=== PATIENT | male | born 1965 | race African-American/Black ===

== ENCOUNTER 2022-02-06 00:35 | Inpatient (IN) | payer MEDICAID ==
[~2022-02-06] VITALS: Ht 165.1 cm; Wt 80.7 kg
[2022-02-06 00:54] VITALS: BP_SYST 181
[2022-02-06] MEDS ORDERED: MORPHINE 2 MG/ML INJ. SYRINGE IVP ONE (01:00)
[2022-02-06] MEDS ORDERED: NACL 0.9% 1,000 ML IV ONE (01:00)
[2022-02-06] MEDS ORDERED: ONDANSETRON HCL 4 MG/2 ML VIAL IVP ONE (01:00)
[2022-02-06 01:27] LABS: HEMOGLOBIN 10.8 g/dL (14.0-18.0); PLATELET COUNT (AUTO) 184 K/uL (130-430); WHITE BLOOD COUNT (AUTO) 5.1 K/uL (4.8-10.8)
[2022-02-06 01:33] LABS: BASOPHILS % (AUTO) 0.6 % (0.0-2.0); EOSINOPHILS # (AUTO) 0.3 K/uL (0.0-0.4); EOSINOPHILS % (AUTO) 5.2 % (0.0-4.0); HEMATOCRIT 32.9 % (36-54); LYMPHOCYTES # (AUTO) 0.8 K/uL (1.0-5.5); LYMPHOCYTES % (AUTO) 15.7 % (20.5-51.5); MEAN CORPUSCULAR HEMOGLOBIN 30 pg (27-31); MEAN CORPUSCULAR HGB CONC 33 % (32-36); MEAN CORPUSCULAR VOLUME 91 fL (79.0-98.0); MONOCYTES # (AUTO) 0.4 K/uL (0.0-1.0); MONOCYTES % (AUTO) 8.3 % (1.7-9.3); NEUTROPHILS # (AUTO) 3.6 K/uL (1.8-7.7); NEUTROPHILS % (AUTO) 70.2 % (40.0-70.0); RED CELL DISTRIBUTION WIDTH 20.9 % (9.0-15.0)
[2022-02-06 01:34] LABS: CALCIUM 8.6 mg/dL (8.4-11.0); POTASSIUM 4.6 mmol/L (3.5-5.1)
[2022-02-06 01:39] LABS: CREATININE 10.78 mg/dL (0.55-1.30)
[2022-02-06 01:44] LABS: ALBUMIN 2.7 g/dL (3.4-4.8); TOTAL BILIRUBIN 0.6 mg/dL (0.0-1.0)
[2022-02-06] MEDS ORDERED: hydrALAZINE HCL 20 MG/ML VIAL IVP ONE (02:00)
[2022-02-06] MEDS ORDERED: DIPHENHYDRAMINE INJ 50 MG/ML VIAL IVP ONE (02:00)
--- NOTE | 2022-02-06 02:13 | NUR ---
Placed in room 7 . Placed on block mechanic, blood pressure machine and pulse oximeter. To gown for exam. Side rails up. Pt a&o x4, verbal, ambulatory, no sob/ distress, with c/o RUQ pain with nausea & dizzy. got d/c from hospital on ,
[2022-02-06] MEDS ORDERED: LORazepam 2 MG/ML VIAL IVP ONE (02:30)
--- NOTE | 2022-02-06 02:50 | NUR ---
NEW ADMISSION , 57YEARS OLD MALE , FROM HOME WITH COMPLAIN OF ABDOMINAL PAIN ,NUSEA AND VOMITING.HEALTH HISTORY OF HTN, ENSRD, ON DIALYSIS. AVF TO [facility] POSIT[facility] FOR [facility] AND THRILL MEDICATED FOR PAIN AND N&V ,HTN AND ANXIETY.PATIENT WAS SEEN AND EVALUATED BY DR MONTEIRO ADMITTING V/S ARE BP.184/93 , HR96, RR 24, O2SAT 100 ON RA TEMP 98.1 PATIENT IS HIGH RISK FOR FALL, WILL CONTINUE TO MONITOR MRSA AND RAPID SWAP DONE ORDERED.
[2022-02-06] MEDS ORDERED: cloNIDine HCL 0.1 MG TABLET PO ONE (03:30)
[2022-02-06 03:48] LABS: BILIRUBIN,URINE NEGATIVE (NEGATIVE); BLOOD, URINE 1+ (NEGATIVE); CLARITY/URINE CLEAR (CLEAR); COLOR,URINE YELLOW (YELLOW); GLUCOSE,URINE 1+ (NEGATIVE); KETONES,URINE NEGATIVE (NEGATIVE); LEUKOCYTE ESTERASE ,URINE NEGATIVE (NEGATIVE); NITRITE, URINE NEGATIVE (NEGATIVE); PROTEIN URINE 3+ (NEGATIVE); UROBILINOGEN,URINE 0.2 (0.2-1.0)
[2022-02-06] MEDS ORDERED: cloNIDine HCL 0.1 MG TABLET ONE ×2 (03:56→04:18)
[2022-02-06 04:20] LABS: BACTERIA,URINE None Seen /HPF (None Seen); MUCUS,URINE 1+ /LPF (None Seen); WBC,URINE 0-3 /HPF (0-3)
--- NOTE | 2022-02-06 05:04 | NUR ---
Consultation Paged Reason for Consultation: Renal Failure Was consult called: Y Person who was notified: Dr. Jordan (parts sales counterperson for Dr. Alfaro) is notified as per WILLIAN Valle Consulting Physician: Dr. Alfaro Ordering Physician: Keron Merino
[2022-02-06 05:10] VITALS: BP_SYST 136
--- NOTE | 2022-02-06 06:07 | NUR ---
patient arrived to the unit approx 0455 from [facility] GRIZZLY WORKER. patient is AAOXO. rambling words. unable to independently ambulate to bed. patient not able to follow commands and attempts to get out of bed. unable to complete admission questions due to patient not being alert. ER MD ordered stat HD per GRIZZLY WORKER. will endorse to on coming nurse. call light within reach. bed set to low, alarm on, and locked.
--- NOTE | 2022-02-06 07:25 | NUR ---
OPENING NOTE RECEIVED SBAR FROM MGMT CONSULTANT NURSE PT IN BED. BED IS LOW AND LOCKED.
[2022-02-06] MEDS ORDERED: NALOXONE HCL 0.4 MG/ML AMP (NARCAN) IVP PRN ×2 (07:30)
[2022-02-06] MEDS ORDERED: LORazepam 2 MG/ML VIAL IVP PRN ×2 (07:30→09:45)
[2022-02-06] MEDS ORDERED: ONDANSETRON HCL 4 MG/2 ML VIAL IVP PRN (07:30)
[2022-02-06] MEDS ORDERED: ACETAMINOPHEN 325 MG TABLET PO PRN (07:30)
[2022-02-06] MEDS ORDERED: HYDROcodone/ACETAMIN 10-325 MG TAB PO PRN (07:30)
[2022-02-06] MEDS ORDERED: HYDROcodone/ACETAMIN 5-325 MG TAB (NORCO/ VICODIN) PO PRN (07:30)
[2022-02-06 08:00] VITALS: BP_SYST 166
--- NOTE | 2022-02-06 08:00 | NUR ---
restraints patient is about to have dialysis. biomedical equipment technician requesting restraints as patient is a &O x1 and will not hold arms still for treatment. Dr Hooks is on the floor and ordered bilateral soft wrist restraints to be used during dialysis
--- NOTE | 2022-02-06 08:52 | NUR ---
CONSULTATION PAGED/CALLED Reason for Consultation: [] HYPERTENSION Person Who was Notified: [] DR Christina STEELE Consulting Physician: [] DR Christina STEELE Industry Analyst Specialty: [] SURGEON Ordering Physician: [] DR Gordon STEELE
[2022-02-06 12:00] VITALS: BP_SYST 160
--- NOTE | 2022-02-06 13:00 | NUR ---
DC RESTRAINTS Dialysis competed. pt not combative. restraints removed. no signs of skin breakdown. capillary refill less than 3seconds.
--- NOTE | 2022-02-06 14:00 | NUR ---
FAMILY AT BEDSIDE NIECE AT BEDSIDE ASSISTED WITH ADMISSION PROCESS. ALL QUESTIONS WERE ANSWERED. NIECE VERBALIZED UNDERSTANDING.
[2022-02-06] MEDS ORDERED: ISO10 PO (15:31)
[2022-02-06] MEDS ORDERED: PRO40 PO (15:31)
[2022-02-06] MEDS ORDERED: NEU300 PO (15:34)
[2022-02-06] MEDS ORDERED: CLOP75TA32 PO (15:34)
[2022-02-06] MEDS ORDERED: CARV6.2554 PO (15:34)
[2022-02-06 16:00] VITALS: BP_SYST 172
--- NOTE | 2022-02-06 19:13 | NUR ---
CLOSING NOTE PROVIDED SBAR TO SANDING SUPERVISOR NURSE PT IN BED. BED IS LOW AND LOCKED. PT DENIES ANY PAIN/DISCOMFORT. ENDORSED CARE TO NIGHT RN.
[2022-02-06 20:00] VITALS: BP_SYST 157
[2022-02-06] MEDS ORDERED: CARVEDILOL 12.5 MG TABLET (COREG) PO SCH (21:00)
[2022-02-06] MEDS ORDERED: ATORVASTATIN 20 MG TABLET PO SCH (21:00)
[2022-02-06] MEDS ORDERED: SACUBITRIL/VALSARTAN 24 MG-26 MG 1 TABLET PO SCH (21:00)
[2022-02-06] MEDS: INSULIN REGULAR, HUMAN 100 UNITS/ML, 10 ML VIAL (humuLIN R) SUBCUT PRN (22:11)
[2022-02-07] VITALS: BP_SYST 127
[2022-02-07] MEDS: INSULIN REGULAR, HUMAN 100 UNITS/ML, 10 ML VIAL (humuLIN R) SUBCUT PRN (06:47)
[2022-02-07 08:00] VITALS: BP_SYST 140
[2022-02-07 08:10] LABS: BASOPHILS % (AUTO) 0.9 % (0.0-2.0); EOSINOPHILS # (AUTO) 0.4 K/uL (0.0-0.4); EOSINOPHILS % (AUTO) 7.1 % (0.0-4.0); HEMATOCRIT 30.8 % (36-54); HEMOGLOBIN 10.2 g/dL (14.0-18.0); LYMPHOCYTES # (AUTO) 0.9 K/uL (1.0-5.5); LYMPHOCYTES % (AUTO) 15.8 % (20.5-51.5); MEAN CORPUSCULAR HEMOGLOBIN 29 pg (27-31); MEAN CORPUSCULAR HGB CONC 33 % (32-36); MEAN CORPUSCULAR VOLUME 89 fL (79.0-98.0); MONOCYTES # (AUTO) 0.5 K/uL (0.0-1.0); MONOCYTES % (AUTO) 8.5 % (1.7-9.3); NEUTROPHILS # (AUTO) 3.7 K/uL (1.8-7.7); NEUTROPHILS % (AUTO) 67.7 % (40.0-70.0); PLATELET COUNT (AUTO) 147 K/uL (130-430); RED BLOOD CELL COUNT(AUTO) 3.47 MIL/uL (4.2-6.2); RED CELL DISTRIBUTION WIDTH 20.7 % (9.0-15.0); WHITE BLOOD COUNT (AUTO) 5.4 K/uL (4.8-10.8)
[2022-02-07 09:33] LABS: ALBUMIN 2.4 g/dL (3.4-4.8); CALCIUM 8.1 mg/dL (8.4-11.0); PHOSPHORUS 3.7 mg/dL (2.7-4.5); POTASSIUM 4.4 mmol/L (3.5-5.1); TOTAL BILIRUBIN 0.6 mg/dL (0.0-1.0)
--- NOTE | 2022-02-07 09:40 | NUR ---
Mr Thorpe has left the hospital AMA. IV access was removed and arm band was removed. He was pleasant and cooperative as he departed. He was escorted as he walked with an usteady gait to the front lobby. At the time of departure he had no s/s of distress and was leaing at his own choice. made aware. No family listed in the chart to notify
[2022-02-07 09:50] LABS: CREATININE 8.1 mg/dL (0.55-1.30)
--- NOTE | 2022-02-08 08:16 | NUR ---
Dispo code 07
== END 2022-02-07 09:40 | disposition left against medical advice (07) | DRG 470 ==
LOC: SED 00:35 → STU 02:37
PROVIDERS: ADMIT Preventive Medicine Preventive Medicine/Occupational Environmental Medicine; ATTEND Preventive Medicine Preventive Medicine/Occupational Environmental Medicine
PROC: 5A1D70Z Performance of Urinary Filtration, Intermittent, Less than 6 Hours Per Day (ICD-10-PCS; principal; 2022-02-06)
DX: I12.0 Hypertensive chronic kidney disease with stage 5 chronic kidney disease or end stage renal disease (principal); G93.40 Encephalopathy, unspecified; I50.23 Acute on chronic systolic (congestive) heart failure; I42.0 Dilated cardiomyopathy; E87.1 Hypo-osmolality and hyponatremia; E88.09 Other disorders of plasma-protein metabolism, not elsewhere classified; J91.8 Pleural effusion in other conditions classified elsewhere; N18.6 End stage renal disease; D64.9 Anemia, unspecified; Z20.822 Contact with and (suspected) exposure to COVID-19; E11.22 Type 2 diabetes mellitus with diabetic chronic kidney disease; I50.9 Heart failure, unspecified; Z91.15 Patient's noncompliance with renal dialysis; Z99.2 Dependence on renal dialysis; Z79.899 Other long term (current) drug therapy
CPT/HCPCS: 36415; 76376; 76770; 80053; 81000; 83690; 83735; 84100; 85025; 87081; 90935; 93306; 96374; 96375; 97161-GP; 99285; G0378; J0360; J1200; J2060; J2270; J2405

== ENCOUNTER 2022-02-11 03:32 | Inpatient (IN) | payer MEDICAID ==
[~2022-02-11] VITALS: Ht 165.1 cm; Wt 81.2 kg
[~2022-02-11 03:32] MED LIST: CARV6.2554 PO; CLOP75TA32 PO; ISO10 PO; NEU300 PO; PRO40 PO
[2022-02-11 05:15] VITALS: BP_SYST 145
[2022-02-11] MEDS ORDERED: HYDROcodone/ACETAMIN 10-325 MG TAB PO ONE (08:30)
[2022-02-11 09:20] LABS: BASOPHILS # (AUTO) 0.1 K/uL (0.0-0.2); BASOPHILS % (AUTO) 0.8 % (0.0-2.0); EOSINOPHILS # (AUTO) 0.3 K/uL (0.0-0.4); EOSINOPHILS % (AUTO) 4.5 % (0.0-4.0); HEMATOCRIT 32.8 % (36-54); HEMOGLOBIN 10.5 g/dL (14.0-18.0); LYMPHOCYTES # (AUTO) 1.3 K/uL (1.0-5.5); LYMPHOCYTES % (AUTO) 18.5 % (20.5-51.5); MEAN CORPUSCULAR HEMOGLOBIN 29 pg (27-31); MEAN CORPUSCULAR HGB CONC 32 % (32-36); MEAN CORPUSCULAR VOLUME 90 fL (79.0-98.0); MONOCYTES # (AUTO) 0.8 K/uL (0.0-1.0); MONOCYTES % (AUTO) 11.2 % (1.7-9.3); NEUTROPHILS # (AUTO) 4.5 K/uL (1.8-7.7); PLATELET COUNT (AUTO) 145 K/uL (130-430); RED BLOOD CELL COUNT(AUTO) 3.65 MIL/uL (4.2-6.2); RED CELL DISTRIBUTION WIDTH 19.7 % (9.0-15.0); WHITE BLOOD COUNT (AUTO) 6.9 K/uL (4.8-10.8)
[2022-02-11 09:30] LABS: ANION GAP 11 (5-15); CHLORIDE 102 mmol/L (98-107); GLUCOSE 155 mg/dL (70-99); POTASSIUM 4.6 mmol/L (3.5-5.1); SODIUM SERUM 138 mmol/L (136-145); UREA NITROGEN, BLOOD 68 mg/dL (8-21)
[2022-02-11 09:37] LABS: CREATININE 7.75 mg/dL (0.55-1.30); GFR AFRICAN AMERICAN 9 mL/min (>90)
[2022-02-11 09:38] LABS: ALANINE AMINOTRANSFERASE 12 U/L (12-78); ALBUMIN 2.5 g/dL (3.4-4.8); ASPARTATE AMINOTRANSFERASE 22 U/L (10-37); TOTAL BILIRUBIN 0.5 mg/dL (0.0-1.0)
[2022-02-11] MEDS ORDERED: D5/0.45 NS 1,000 ML IV SCH (14:30)
[2022-02-11] MEDS ORDERED: CLOP75TA32 PO (15:16)
[2022-02-11] MEDS ORDERED: FER300L PO (15:19)
[2022-02-11 16:55] VITALS: BP_SYST 142
[2022-02-11] MEDS ORDERED: ACETAMINOPHEN 325 MG TABLET PO PRN ×2 (17:45→19:00)
[2022-02-11] MEDS ORDERED: NALOXONE HCL 0.4 MG/ML AMP (NARCAN) IVP PRN ×2 (19:00)
[2022-02-11] MEDS ORDERED: HYDROcodone/ACETAMIN 5-325 MG TAB (NORCO/ VICODIN) PO PRN (19:00)
[2022-02-11] MEDS ORDERED: LORazepam 2 MG/ML VIAL IVP PRN (19:00)
[2022-02-11] MEDS ORDERED: ONDANSETRON HCL 4 MG/2 ML VIAL IVP PRN (19:00)
[2022-02-11 20:00] VITALS: BP_SYST 159
[2022-02-11] MEDS: ISOSORBIDE DINITRATE 10 MG TABLET (ISORDIL) PO SCH (20:27)
[2022-02-11] MEDS: NORMAL SALINE 5 ML DISP.SYRIN IVF SCH (20:27)
[2022-02-11] MEDS: DIPHENHYDRAMINE HCL 25 MG CAPSULE PO PRN (20:28)
[2022-02-11] MEDS: CARVEDILOL 6.25 MG TABLET (COREG) PO SCH (20:41)
[2022-02-11] MEDS ORDERED: PANTOPRAZOLE SODIUM 40 MG/VIAL (PROTONIX) IVP SCH (21:00)
[2022-02-11] MEDS ORDERED: NORMAL SALINE 5 ML DISP.SYRIN IVF SCH (22:00)
[2022-02-12] VITALS: BP_SYST 146
[2022-02-12] MEDS: DIPHENHYDRAMINE HCL 25 MG CAPSULE PO PRN (04:28)
[2022-02-12] MEDS: NORMAL SALINE 5 ML DISP.SYRIN IVF SCH ×3 (04:36→21:26)
[2022-02-12 08:00] VITALS: BP_SYST 145
[2022-02-12] MEDS: CARVEDILOL 6.25 MG TABLET (COREG) PO SCH ×2 (09:04→21:25)
[2022-02-12] MEDS: PANTOPRAZOLE SODIUM 40 MG TAB PO SCH (09:05)
[2022-02-12] MEDS: ISOSORBIDE DINITRATE 10 MG TABLET (ISORDIL) PO SCH ×3 (09:05→21:12)
[2022-02-12] MEDS: CLOPIDOGREL BISULFATE 75 MG TABLET PO SCH (09:05)
[2022-02-12] MEDS: FERROUS SULFATE 300 MG/5 ML UDC PO SCH (09:06)
[2022-02-12 10:24] LABS: CALCIUM 8.1 mg/dL (8.4-11.0); CREATININE 5.75 mg/dL (0.55-1.30); PHOSPHORUS 3.5 mg/dL (2.7-4.5)
[2022-02-12] MEDS: INSULIN REGULAR, HUMAN 100 UNITS/ML, 10 ML VIAL (humuLIN R) SUBCUT PRN (11:35)
[2022-02-12 12:00] VITALS: BP_SYST 149
[2022-02-12 14:34] LABS: BASOPHILS # (AUTO) 0.1 K/uL (0.0-0.2); BASOPHILS % (AUTO) 1.3 % (0.0-2.0); EOSINOPHILS # (AUTO) 0.3 K/uL (0.0-0.4); EOSINOPHILS % (AUTO) 5.5 % (0.0-4.0); HEMATOCRIT 31.5 % (36-54); HEMOGLOBIN 10.2 g/dL (14.0-18.0); LYMPHOCYTES # (AUTO) 1.3 K/uL (1.0-5.5); LYMPHOCYTES % (AUTO) 22.1 % (20.5-51.5); MEAN CORPUSCULAR HEMOGLOBIN 29 pg (27-31); MEAN CORPUSCULAR HGB CONC 32 % (32-36); MEAN CORPUSCULAR VOLUME 89 fL (79.0-98.0); MONOCYTES # (AUTO) 0.4 K/uL (0.0-1.0); MONOCYTES % (AUTO) 6.4 % (1.7-9.3); NEUTROPHILS # (AUTO) 3.7 K/uL (1.8-7.7); NEUTROPHILS % (AUTO) 64.7 % (40.0-70.0); PLATELET COUNT (AUTO) 164 K/uL (130-430); RED BLOOD CELL COUNT(AUTO) 3.53 MIL/uL (4.2-6.2); RED CELL DISTRIBUTION WIDTH 20.2 % (9.0-15.0); WHITE BLOOD COUNT (AUTO) 5.7 K/uL (4.8-10.8)
[2022-02-12 15:46] LABS: THYROID STIMULATING HORMONE 3.28 uIu/mL (0.36-3.74)
[2022-02-12 16:00] VITALS: BP_SYST 160
[2022-02-12] MEDS: HYDROcodone/ACETAMIN 10-325 MG TAB PO PRN ×2 (16:55→21:13)
[2022-02-12 20:32] VITALS: BP_SYST 136
[2022-02-13 00:12] VITALS: BP_SYST 160
[2022-02-13] MEDS: NORMAL SALINE 5 ML DISP.SYRIN IVF SCH ×3 (07:05→22:10)
[2022-02-13] MEDS: INSULIN REGULAR, HUMAN 100 UNITS/ML, 10 ML VIAL (humuLIN R) SUBCUT PRN ×2 (07:11→11:45)
[2022-02-13 08:00] VITALS: BP_SYST 161
[2022-02-13] MEDS: CARVEDILOL 6.25 MG TABLET (COREG) PO SCH ×2 (08:25→20:41)
[2022-02-13] MEDS: FERROUS SULFATE 300 MG/5 ML UDC PO SCH (08:25)
[2022-02-13] MEDS: PANTOPRAZOLE SODIUM 40 MG TAB PO SCH (08:26)
[2022-02-13] MEDS: CLOPIDOGREL BISULFATE 75 MG TABLET PO SCH (08:26)
[2022-02-13] MEDS: HYDROcodone/ACETAMIN 10-325 MG TAB PO PRN ×3 (08:26→20:40)
[2022-02-13] MEDS: ISOSORBIDE DINITRATE 10 MG TABLET (ISORDIL) PO SCH ×3 (08:26→20:42)
[2022-02-13 09:32] LABS: CALCIUM 8.1 mg/dL (8.4-11.0); CREATININE 7.14 mg/dL (0.55-1.30); PHOSPHORUS 4.5 mg/dL (2.7-4.5); POTASSIUM 4.5 mmol/L (3.5-5.1)
[2022-02-13] MEDS: DIPHENHYDRAMINE HCL 25 MG CAPSULE PO PRN ×2 (10:38→17:01)
[2022-02-13 12:00] VITALS: BP_SYST 155
[2022-02-13 12:29] LABS: BASOPHILS # (AUTO) 0.1 K/uL (0.0-0.2); BASOPHILS % (AUTO) 1.4 % (0.0-2.0); EOSINOPHILS # (AUTO) 0.2 K/uL (0.0-0.4); EOSINOPHILS % (AUTO) 3.8 % (0.0-4.0); HEMATOCRIT 31.1 % (36-54); HEMOGLOBIN 10.1 g/dL (14.0-18.0); LYMPHOCYTES # (AUTO) 1.1 K/uL (1.0-5.5); LYMPHOCYTES % (AUTO) 18.4 % (20.5-51.5); MEAN CORPUSCULAR HEMOGLOBIN 29 pg (27-31); MEAN CORPUSCULAR HGB CONC 32 % (32-36); MEAN CORPUSCULAR VOLUME 89 fL (79.0-98.0); MONOCYTES # (AUTO) 0.5 K/uL (0.0-1.0); MONOCYTES % (AUTO) 7.7 % (1.7-9.3); NEUTROPHILS # (AUTO) 4.1 K/uL (1.8-7.7); NEUTROPHILS % (AUTO) 68.7 % (40.0-70.0); PLATELET COUNT (AUTO) 163 K/uL (130-430); RED BLOOD CELL COUNT(AUTO) 3.48 MIL/uL (4.2-6.2); RED CELL DISTRIBUTION WIDTH 20.4 % (9.0-15.0); WHITE BLOOD COUNT (AUTO) 5.9 K/uL (4.8-10.8)
[2022-02-13 16:00] VITALS: BP_SYST 145
[2022-02-13 20:00] VITALS: BP_SYST 157
[2022-02-14 01:00] VITALS: BP_SYST 129
[2022-02-14] MEDS: NORMAL SALINE 5 ML DISP.SYRIN IVF SCH (05:24)
[2022-02-14 07:48] LABS: EOSINOPHILS # (AUTO) 0.3 K/uL (0.0-0.4); EOSINOPHILS % (AUTO) 4.4 % (0.0-4.0); HEMATOCRIT 29.4 % (36-54); HEMOGLOBIN 9.7 g/dL (14.0-18.0); LYMPHOCYTES # (AUTO) 1.4 K/uL (1.0-5.5); LYMPHOCYTES % (AUTO) 20.8 % (20.5-51.5); MEAN CORPUSCULAR HEMOGLOBIN 29 pg (27-31); MEAN CORPUSCULAR HGB CONC 33 % (32-36); MEAN CORPUSCULAR VOLUME 89 fL (79.0-98.0); MONOCYTES # (AUTO) 0.5 K/uL (0.0-1.0); MONOCYTES % (AUTO) 7.4 % (1.7-9.3); PLATELET COUNT (AUTO) 169 K/uL (130-430); RED CELL DISTRIBUTION WIDTH 19.9 % (9.0-15.0); WHITE BLOOD COUNT (AUTO) 6.7 K/uL (4.8-10.8)
[2022-02-14 08:05] VITALS: BP_SYST 157
[2022-02-14] MEDS: FERROUS SULFATE 300 MG/5 ML UDC PO SCH (08:06)
[2022-02-14] MEDS: ISOSORBIDE DINITRATE 10 MG TABLET (ISORDIL) PO SCH (08:07)
[2022-02-14] MEDS: HYDROcodone/ACETAMIN 10-325 MG TAB PO PRN (08:07)
[2022-02-14] MEDS: CLOPIDOGREL BISULFATE 75 MG TABLET PO SCH (08:08)
[2022-02-14] MEDS: PANTOPRAZOLE SODIUM 40 MG TAB PO SCH (08:12)
[2022-02-14] MEDS: CARVEDILOL 6.25 MG TABLET (COREG) PO SCH (08:12)
[2022-02-14 08:35] LABS: ALBUMIN 2.6 g/dL (3.4-4.8); CALCIUM 8.6 mg/dL (8.4-11.0); CREATININE 5.46 mg/dL (0.55-1.30); PHOSPHORUS 3.7 mg/dL (2.7-4.5); POTASSIUM 4.5 mmol/L (3.5-5.1); TOTAL BILIRUBIN 0.8 mg/dL (0.0-1.0)
[2022-02-14] MEDS ORDERED: GABAPENTIN 100 MG CAPSULE PO SCH (09:00)
[2022-02-14 09:12] LABS: BASOPHILS % (AUTO) 0.2 % (0.0-2.0); NEUTROPHILS # (AUTO) 4.5 K/uL (1.8-7.7); NEUTROPHILS % (AUTO) 67.2 % (40.0-70.0)
[2022-02-14] MEDS ORDERED: LORazepam 1 MG TABLET PO PRN (09:15)
[2022-02-14] MEDS: INSULIN REGULAR, HUMAN 100 UNITS/ML, 10 ML VIAL (humuLIN R) SUBCUT PRN (11:27)
[2022-02-14] MEDS ORDERED: HYDR-3917 PO (12:20)
== END 2022-02-14 23:19 | disposition home or self-care (01) | DRG 470 ==
LOC: SED 03:32 → SMU 13:09 → STU 15:28 → SMU 02-13 23:09
PROVIDERS: ADMIT Preventive Medicine Preventive Medicine/Occupational Environmental Medicine; ATTEND Preventive Medicine Preventive Medicine/Occupational Environmental Medicine
PROC: 5A1D70Z Performance of Urinary Filtration, Intermittent, Less than 6 Hours Per Day (ICD-10-PCS; principal; 2022-02-11)
PROC: 5A1D70Z Performance of Urinary Filtration, Intermittent, Less than 6 Hours Per Day (ICD-10-PCS; 2022-02-13)
DX: I12.0 Hypertensive chronic kidney disease with stage 5 chronic kidney disease or end stage renal disease (principal); I21.A1 Myocardial infarction type 2; E43 Unspecified severe protein-calorie malnutrition; N18.6 End stage renal disease; D63.1 Anemia in chronic kidney disease; E88.09 Other disorders of plasma-protein metabolism, not elsewhere classified; E11.21 Type 2 diabetes mellitus with diabetic nephropathy; E11.22 Type 2 diabetes mellitus with diabetic chronic kidney disease; Z20.822 Contact with and (suspected) exposure to COVID-19; K21.9 Gastro-esophageal reflux disease without esophagitis; E11.65 Type 2 diabetes mellitus with hyperglycemia; E83.52 Hypercalcemia; Z99.2 Dependence on renal dialysis; Z72.0 Tobacco use; Z79.01 Long term (current) use of anticoagulants; Z68.29 Body mass index [BMI] 29.0-29.9, adult; N28.9 Disorder of kidney and ureter, unspecified
CPT/HCPCS: 36415; 71045; 76770; 80048; 80053; 80061; 82962; 83735; 83880; 84100; 84443; 84484; 85025; 90935; 90937; 93005; 99285; G0378; J1815; J2060; Q0163

== ENCOUNTER 2022-02-21 00:50 | Inpatient (IN) | payer MEDICAID ==
[2022-02-21] VITALS (8 sets, daily range): BP systolic 132–185
[~2022-02-21] VITALS: Ht 180.3 cm; Wt 72.6 kg
[~2022-02-21 00:50] MED LIST changes: +FER300L PO; +HYDR-3917 PO
[2022-02-21] MEDS ORDERED: MORPHINE 4 MG INJ. 4 MG/ML VIAL IVP ONE (01:15)
[2022-02-21] MEDS ORDERED: PROCHLORPERAZINE EDISYLATE 10 MG/2 ML VIAL IVP ONE (01:15)
[2022-02-21] MEDS ORDERED: NITROGLYCERIN 1 INCH (GM) OINT. TP ONE (01:30)
[2022-02-21 02:22] LABS: ANION GAP 8 (5-15); CHLORIDE 97 mmol/L (98-107); GLUCOSE 169 mg/dL (70-99); POTASSIUM 4.6 mmol/L (3.5-5.1); SODIUM SERUM 138 mmol/L (136-145); UREA NITROGEN, BLOOD 45 mg/dL (8-21)
[2022-02-21 02:26] LABS: BASOPHILS # (AUTO) 0.1 K/uL (0.0-0.2); BASOPHILS % (AUTO) 1.5 % (0.0-2.0); EOSINOPHILS # (AUTO) 0.1 K/uL (0.0-0.4); EOSINOPHILS % (AUTO) 2.1 % (0.0-4.0); HEMATOCRIT 31.7 % (36-54); HEMOGLOBIN 10.5 g/dL (14.0-18.0); LYMPHOCYTES # (AUTO) 1.4 K/uL (1.0-5.5); LYMPHOCYTES % (AUTO) 20.1 % (20.5-51.5); MEAN CORPUSCULAR HEMOGLOBIN 30 pg (27-31); MEAN CORPUSCULAR HGB CONC 33 % (32-36); MEAN CORPUSCULAR VOLUME 89 fL (79.0-98.0); MONOCYTES # (AUTO) 0.3 K/uL (0.0-1.0); NEUTROPHILS # (AUTO) 4.9 K/uL (1.8-7.7); NEUTROPHILS % (AUTO) 71.3 % (40.0-70.0); PLATELET COUNT (AUTO) 180 K/uL (130-430); RED BLOOD CELL COUNT(AUTO) 3.57 MIL/uL (4.2-6.2); RED CELL DISTRIBUTION WIDTH 21.5 % (9.0-15.0); WHITE BLOOD COUNT (AUTO) 6.9 K/uL (4.8-10.8)
[2022-02-21 02:31] LABS: ALANINE AMINOTRANSFERASE 10 U/L (12-78); ALBUMIN 2.6 g/dL (3.4-4.8); ASPARTATE AMINOTRANSFERASE 13 U/L (10-37)
[2022-02-21 02:40] LABS: CALCIUM 8.3 mg/dL (8.4-11.0); CREATININE 7.46 mg/dL (0.55-1.30)
[2022-02-21 03:00] LABS: GFR AFRICAN AMERICAN 10 mL/min (>90)
[2022-02-21] MEDS ORDERED: hydrALAZINE HCL 20 MG/ML VIAL IVP ONE (03:00)
[2022-02-21] MEDS ORDERED: cloNIDine HCL 0.1 MG TABLET PO PRN (04:00)
[2022-02-21] MEDS ORDERED: NALOXONE HCL 0.4 MG/ML AMP (NARCAN) IVP PRN (09:30)
[2022-02-21] MEDS ORDERED: CLOPIDOGREL BISULFATE 75 MG TABLET PO ONE (09:45)
[2022-02-21] MEDS ORDERED: FERROUS SULFATE 325 MG TABLET.DR PO ONE (09:45)
[2022-02-21] MEDS ORDERED: CARVEDILOL 6.25 MG TABLET (COREG) PO ONE (09:45)
[2022-02-21] MEDS ORDERED: PANTOPRAZOLE SODIUM 40 MG TAB PO ONE (09:45)
[2022-02-21] MEDS ORDERED: ISOSORBIDE DINITRATE 10 MG TABLET (ISORDIL) PO ONE (09:45)
[2022-02-21] MEDS ORDERED: NEPHROVITE, (FOLIC ACID/VITAMIN B COMP W-C 1 TAB) PO ONE (09:45)
[2022-02-21] MEDS: ISOSORBIDE DINITRATE 10 MG TABLET (ISORDIL) PO SCH ×2 (15:00→20:25)
[2022-02-21] MEDS ORDERED: GABAPENTIN 300 MG CAPSULE PO SCH (15:00)
[2022-02-21] MEDS: CARVEDILOL 6.25 MG TABLET (COREG) PO SCH (20:25)
[2022-02-22 06:53] LABS: CALCIUM 8.2 mg/dL (8.4-11.0); CREATININE 6.57 mg/dL (0.55-1.30); POTASSIUM 3.9 mmol/L (3.5-5.1)
[2022-02-22 06:59] LABS: BASOPHILS # (AUTO) 0.1 K/uL (0.0-0.2); BASOPHILS % (AUTO) 1.3 % (0.0-2.0); EOSINOPHILS # (AUTO) 0.2 K/uL (0.0-0.4); EOSINOPHILS % (AUTO) 4.1 % (0.0-4.0); HEMATOCRIT 30.3 % (36-54); HEMOGLOBIN 10.1 g/dL (14.0-18.0); LYMPHOCYTES % (AUTO) 17.2 % (20.5-51.5); MEAN CORPUSCULAR HEMOGLOBIN 30 pg (27-31); MEAN CORPUSCULAR HGB CONC 33 % (32-36); MEAN CORPUSCULAR VOLUME 89 fL (79.0-98.0); MONOCYTES # (AUTO) 0.4 K/uL (0.0-1.0); MONOCYTES % (AUTO) 7.4 % (1.7-9.3); PLATELET COUNT (AUTO) 164 K/uL (130-430); RED BLOOD CELL COUNT(AUTO) 3.41 MIL/uL (4.2-6.2); RED CELL DISTRIBUTION WIDTH 21.9 % (9.0-15.0); WHITE BLOOD COUNT (AUTO) 5.7 K/uL (4.8-10.8)
[2022-02-22 08:00] VITALS: BP_SYST 156
[2022-02-22] MEDS: ISOSORBIDE DINITRATE 10 MG TABLET (ISORDIL) PO SCH ×3 (09:42→20:13)
[2022-02-22] MEDS: PANTOPRAZOLE SODIUM 40 MG TAB PO SCH (09:42)
[2022-02-22] MEDS: FERROUS SULFATE 325 MG TABLET.DR PO SCH (09:42)
[2022-02-22] MEDS: CLOPIDOGREL BISULFATE 75 MG TABLET PO SCH (09:43)
[2022-02-22] MEDS: CARVEDILOL 6.25 MG TABLET (COREG) PO SCH ×2 (09:43→20:14)
[2022-02-22] MEDS: NEPHROVITE, (FOLIC ACID/VITAMIN B COMP W-C 1 TAB) PO SCH (09:43)
[2022-02-22] MEDS ORDERED: ONDANSETRON HCL 4 MG/2 ML VIAL IVP PRN (10:45)
[2022-02-22 12:00] VITALS: BP_SYST 158
[2022-02-22 15:30] VITALS: BP_SYST 162
[2022-02-22] MEDS: HYDROcodone/ACETAMIN 5-325 MG TAB (NORCO/ VICODIN) PO PRN (17:31)
[2022-02-23] MEDS ORDERED: DIPHENHYDRAMINE HCL 50 MG CAPSULE PO PRN ×2 (00:15)
[2022-02-23] MEDS ORDERED: DIPHENHYDRAMINE HCL 25 MG CAPSULE PO PRN ×2 (00:30→11:30)
[2022-02-23 02:01] VITALS: BP_SYST 158
[2022-02-23 08:00] VITALS: BP_SYST 155
[2022-02-23] MEDS: CARVEDILOL 6.25 MG TABLET (COREG) PO SCH ×2 (09:00→16:06)
[2022-02-23] MEDS: ISOSORBIDE DINITRATE 10 MG TABLET (ISORDIL) PO SCH ×4 (09:00→16:07)
[2022-02-23] MEDS: CLOPIDOGREL BISULFATE 75 MG TABLET PO SCH (09:58)
[2022-02-23] MEDS: PANTOPRAZOLE SODIUM 40 MG TAB PO SCH (09:58)
[2022-02-23] MEDS: FERROUS SULFATE 325 MG TABLET.DR PO SCH (09:58)
[2022-02-23] MEDS: NEPHROVITE, (FOLIC ACID/VITAMIN B COMP W-C 1 TAB) PO SCH (09:58)
[2022-02-23] MEDS: HYDROcodone/ACETAMIN 5-325 MG TAB (NORCO/ VICODIN) PO PRN (11:33)
[2022-02-23 16:55] VITALS: BP_SYST 159
[2022-02-23 16:59] VITALS: BP_SYST 159
== END 2022-02-23 17:25 | disposition home or self-care (01) | DRG 194 ==
LOC: SED 00:50 → SIC 03:55 → STU 21:32
PROVIDERS: ADMIT Internal Medicine; ATTEND Internal Medicine
PROC: 5A09357 Assistance with Respiratory Ventilation, Less than 24 Consecutive Hours, Continuous Positive Airway Pressure (ICD-10-PCS; principal; 2022-02-21)
DX: I13.2 Hypertensive heart and chronic kidney disease with heart failure and with stage 5 chronic kidney disease, or end stage renal disease (principal); I27.20 Pulmonary hypertension, unspecified; E44.0 Moderate protein-calorie malnutrition; I42.9 Cardiomyopathy, unspecified; N18.6 End stage renal disease; D63.8 Anemia in other chronic diseases classified elsewhere; E87.70 Fluid overload, unspecified; I50.43 Acute on chronic combined systolic (congestive) and diastolic (congestive) heart failure; Z20.822 Contact with and (suspected) exposure to COVID-19; G89.29 Other chronic pain; M54.9 Dorsalgia, unspecified; I34.0 Nonrheumatic mitral (valve) insufficiency; Z79.899 Other long term (current) drug therapy; Z68.22 Body mass index [BMI] 22.0-22.9, adult
CPT/HCPCS: 36415; 36600; 71045; 80048; 80053; 82803-TC; 82962; 83880; 84484; 85025; 87081; 90935; 93005; 94660; 96374; 96375; 99291; G0378; J0360; J0780; J2270; J2405; Q0163

== ENCOUNTER 2022-03-06 19:18 | Inpatient (IN) | payer MEDICAID ==
[~2022-03-06] VITALS: Ht 165.1 cm; Wt 80.7 kg
[~2022-03-06 19:18] MED LIST changes: -NEU300 PO
--- NOTE | 2022-03-06 19:22 | NUR ---
Placed in room 08 . Placed on desk monitor, blood pressure machine and pulse oximeter. To gown for exam. Side rails up.
[2022-03-06 19:23] VITALS: BP_SYST 160
--- NOTE | 2022-03-06 19:25 | NUR ---
Report given to Amina GANT RN
--- NOTE | 2022-03-06 19:30 | NUR ---
Received pt a AAOX4, skin w/d, VS WNL, on RA. Eyes icteric, pt w/ c/o uticaria. Seen by ED . Will assesss and monitor PRN.
[2022-03-06] MEDS ORDERED: cefTRIAXone 1 GM IVPB PREMIX 50 ML IV ONE (20:15)
[2022-03-06] MEDS ORDERED: AZITHROMYCIN 500 MG in NS 250 ML IV ONE (20:15)
[2022-03-06 20:17] LABS: BASOPHILS # (AUTO) 0.2 K/uL (0.0-0.2); BASOPHILS % (AUTO) 2.5 % (0.0-2.0); EOSINOPHILS # (AUTO) 0.2 K/uL (0.0-0.4); EOSINOPHILS % (AUTO) 3.2 % (0.0-4.0); HEMATOCRIT 31.2 % (36-54); HEMOGLOBIN 10.1 g/dL (14.0-18.0); LYMPHOCYTES # (AUTO) 0.9 K/uL (1.0-5.5); LYMPHOCYTES % (AUTO) 12.9 % (20.5-51.5); MEAN CORPUSCULAR HEMOGLOBIN 29 pg (27-31); MEAN CORPUSCULAR HGB CONC 33 % (32-36); MEAN CORPUSCULAR VOLUME 89 fL (79.0-98.0); MONOCYTES # (AUTO) 0.4 K/uL (0.0-1.0); MONOCYTES % (AUTO) 5.1 % (1.7-9.3); NEUTROPHILS # (AUTO) 5.4 K/uL (1.8-7.7); NEUTROPHILS % (AUTO) 76.3 % (40.0-70.0); PLATELET COUNT (AUTO) 212 K/uL (130-430); RED BLOOD CELL COUNT(AUTO) 3.52 MIL/uL (4.2-6.2); RED CELL DISTRIBUTION WIDTH 21.6 % (9.0-15.0); WHITE BLOOD COUNT (AUTO) 7.1 K/uL (4.8-10.8)
[2022-03-06] MEDS ORDERED: AZITHROMYCIN 500 MG/VIAL (ZITHROMAX) IV ONE (20:38)
[2022-03-06 20:39] LABS: ANION GAP 10 (5-15); CALCIUM 8.6 mg/dL (8.4-11.0); CHLORIDE 95 mmol/L (98-107); CREATININE 7.01 mg/dL (0.55-1.30); GLUCOSE 334 mg/dL (70-99); POTASSIUM 4.6 mmol/L (3.5-5.1); UREA NITROGEN, BLOOD 55 mg/dL (8-21)
[2022-03-06] MEDS ORDERED: DIPHENHYDRAMINE INJ 50 MG/ML VIAL IVP ONE (20:45)
[2022-03-06 20:47] LABS: ALANINE AMINOTRANSFERASE 8 U/L (12-78); ALBUMIN 2.7 g/dL (3.4-4.8); ASPARTATE AMINOTRANSFERASE 21 U/L (10-37); LIPASE 449 U/L (73-393); TOTAL BILIRUBIN 0.9 mg/dL (0.0-1.0)
[2022-03-06 20:57] LABS: GFR AFRICAN AMERICAN 10 mL/min (>90)
[2022-03-06] MEDS ORDERED: FUROSEMIDE 40 MG/4 ML VIAL IVP ONE (21:15)
[2022-03-06] MEDS ORDERED: NITROGLYCERIN 1 INCH (GM) OINT. TP ONE (21:15)
[2022-03-06] MEDS: NORMAL SALINE 5 ML DISP.SYRIN IVF SCH (22:00)
--- NOTE | 2022-03-06 22:26 | NUR ---
Covid swab done and sent to lab
--- NOTE | 2022-03-06 22:43 | NUR ---
Admit bed requested Patient will be admitted to care of Dr. NIEVES. Admitted to TELE unit. Diagnosis CHF, R/O PNEUMONIA, ESRD, CIRRHOSIS OF LIVER Inpatient (Yes or No) Y Observation (Yes or No) N Orientation concerns or request close to nursing station (Yes or No) Y Covid Status PENDING On vent or bipap [N] Isolation requirements [?] Needs a sitter [N] From Home (Yes or if No enter name of facility) [Y] Requires Dialysis (Yes or No) [Y] Med Rec Completed (Yes of No) [Y]
[2022-03-06 22:52] LABS: BLOOD, URINE 1+ (NEGATIVE); CLARITY/URINE CLEAR (CLEAR); COLOR,URINE YELLOW (YELLOW); GLUCOSE,URINE 1+ (NEGATIVE); KETONES,URINE TRACE (NEGATIVE); LEUKOCYTE ESTERASE ,URINE NEGATIVE (NEGATIVE); NITRITE, URINE NEGATIVE (NEGATIVE); PROTEIN URINE 3+ (NEGATIVE)
[2022-03-06 23:02] LABS: BILIRUBIN,URINE NEGATIVE (NEGATIVE)
[2022-03-06 23:10] LABS: BACTERIA,URINE None Seen /HPF (None Seen); WBC,URINE 0-3 /HPF (0-3)
[2022-03-06 23:11] LABS: MUCUS,URINE None Seen /LPF (None Seen)
[2022-03-06 23:13] LABS: BARBITURATE, URINE NEGATIVE (NEG <=200); BENZODIAZEPINE, URINE NEGATIVE (NEG <=150); CANNABINOID, URINE NEGATIVE (NEG <=50); COCAINE, URINE NEGATIVE (NEG <=150); METHAMPHETAMINES SCREEN,URINE NEGATIVE (NEG <=500); OPIATE, URINE NEGATIVE (NEG <=100); PHENCYCLIDINE SCREEN,URINE NEGATIVE (NEG <=25); UR TRICYCLIC ANTIDEPRESSANTS NEGATIVE (NEG <=300); URINE AMPHETAMINE NEGATIVE (NEG <=500); URINE METHADONE NEGATIVE (NEG <=200); URINE OXYCODONE SCREEN NEGATIVE (NEG <=100); URINE PROPOXYPHENE SCREEN NEGATIVE (NEG <=300)
--- NOTE | 2022-03-06 23:37 | NUR ---
Influenza swab done and sent to lab
--- NOTE | 2022-03-07 01:50 | NUR ---
Patient will be admitted to care of Ronald Campa. Admitted to tele unit. Will go to room 120A. Belongings list completed. Complete and up to date summary report printed. SBAR report to be given at bedside to Rolf COSTA with opportunity for questions.
[2022-03-07 02:13] VITALS: BP_SYST 197
--- NOTE | 2022-03-07 02:14 | NUR ---
Consultation Paged Reason for Consultation: Pneumonia Was consult called: Y Person who was notified: Li Consulting Physician: London Killian Ordering Physician: Dr. Luna
--- NOTE | 2022-03-07 02:21 | NUR ---
ADMISSION OF A 57 YEAR OLD MALE PATIENT WITH A PRIMARY DIAGNOSIS OF CONGESTIVE HEART FAILURE UNDER THE CARE OF DOCTOR MD LIZBETH. PATIENT PRIMARY CONCERN IS SLEEP AND NEED FOR FURTHER CARE FOR PANIC ATTACKS. ELIE MCBRIDE RN
--- NOTE | 2022-03-07 03:35 | NUR ---
PATIENT REFUSES HEART MONITOR. INSTRUCTION ABOUT MONITORING HEART FUNCTION TO DETERMINE POSSIBLE CAUSES OF CONGESTIVE HEART FAILURE AND TREATMENT UP TO AND INCLUDING ADVERSE RISKS OF FROM NOT WEARING MONITOR. PATIENT VERBALIZES UNDERSTANDING OF TEACHING. ELIE MCBRIDE
--- NOTE | 2022-03-07 03:41 | NUR ---
Consultation Paged Reason for Consultation: ESRD Was consult called: Y Person who was notified: Alma Consulting Physician: Dr. Euceda Ordering Physician: Dr. Luna
--- NOTE | 2022-03-07 05:52 | NUR ---
PATIENT REFUSES BED BATH AFTER REQUEST FOR SHOWER. ELIE MCBRIDE RN
[2022-03-07 07:13] LABS: BASOPHILS # (AUTO) 0.1 K/uL (0.0-0.2); BASOPHILS % (AUTO) 0.9 % (0.0-2.0); EOSINOPHILS # (AUTO) 0.1 K/uL (0.0-0.4); EOSINOPHILS % (AUTO) 1.3 % (0.0-4.0); HEMATOCRIT 30.6 % (36-54); HEMOGLOBIN 10.2 g/dL (14.0-18.0); LYMPHOCYTES # (AUTO) 1.5 K/uL (1.0-5.5); MEAN CORPUSCULAR HEMOGLOBIN 29 pg (27-31); MEAN CORPUSCULAR HGB CONC 34 % (32-36); MEAN CORPUSCULAR VOLUME 88 fL (79.0-98.0); MONOCYTES # (AUTO) 0.9 K/uL (0.0-1.0); MONOCYTES % (AUTO) 10.6 % (1.7-9.3); NEUTROPHILS # (AUTO) 5.8 K/uL (1.8-7.7); NEUTROPHILS % (AUTO) 69.2 % (40.0-70.0); PLATELET COUNT (AUTO) 219 K/uL (130-430); RED BLOOD CELL COUNT(AUTO) 3.48 MIL/uL (4.2-6.2); RED CELL DISTRIBUTION WIDTH 20.4 % (9.0-15.0); WHITE BLOOD COUNT (AUTO) 8.4 K/uL (4.8-10.8)
[2022-03-07 08:00] VITALS: BP_SYST 160
[2022-03-07] MEDS: DIPHENHYDRAMINE HCL 50 MG CAPSULE PO PRN ×2 (08:58→23:54)
[2022-03-07] MEDS ORDERED: cefTRIAXone 1 GM VIAL IV SCH ×2 (09:00→21:00)
[2022-03-07] MEDS: NORMAL SALINE 5 ML DISP.SYRIN IVF SCH ×2 (09:01→14:00)
--- NOTE | 2022-03-07 11:40 | NUR ---
Mr Thorpe has decided to leave the hospital AMA. he states that he is very cold and no one is doing anything for him. He did sign AMA form.
--- NOTE | 2022-03-07 11:45 | NUR ---
Dr. Luna spoke in detail with Mr Thorpe explaining he needs oxygen and that he has pneumonia as well as fluid on his abdomen and that he needs dialysis as well. The physician explained that he could go outside collapse and . Mr Thorpe decided to stay in the hospital a long as he can be taken outside to sit in the sun. Dr Luna agreed to 10 minutes and he also wants a shower. Dr Luna agreed to this as well.
[2022-03-07] MEDS ORDERED: LORazepam 2 MG/ML VIAL IM PRN (12:00)
--- NOTE | 2022-03-07 12:12 | NUR ---
NOTES: called dr. Euceda's exchange for consult, already called last night. nurse Nahomi singh.
[2022-03-07] MEDS ORDERED: PANTOPRAZOLE SODIUM 40 MG TAB PO ONE (15:00)
[2022-03-07] MEDS ORDERED: CARVEDILOL 6.25 MG TABLET (COREG) PO ONE (15:00)
[2022-03-07 15:14] VITALS: BP_SYST 159
--- NOTE | 2022-03-07 18:00 | NUR ---
Mr Thorpe has been taken outside to sit in the earth of the sun. He has been permitted a long shower. He is being dialyzed at this time. He states that he cannot sleep in a bed. He has been provided with a recliner. He has rested periodically this afternoon. He still has random spasms that cause him to jump and cry out. He states that his therapist encouraged him to moan out his anxiety, so he moans often. He is presently resting quietly
--- NOTE | 2022-03-07 19:15 | NUR ---
OPENING NOTES Patient resting in bed - no s/s pain or distress noted. Respirations even and unlabored - head of bed elevated. No IV site - MD aware. Bed locked and in lowest position. Call light within reach - bed alarm on. Patient currently receiving dialysis.
--- NOTE | 2022-03-07 19:15 | NUR ---
Handoff has been given Lio
[2022-03-07 20:00] VITALS: BP_SYST 183
--- NOTE | 2022-03-07 20:13 | NUR ---
Tigre Euceda for geraldine for midline insertion Dr. Euceda states ok for midline insertion
[2022-03-07] MEDS ORDERED: AZITHROMYCIN 500 MG in NS 250 ML IV SCH (21:00)
[2022-03-07] MEDS: CARVEDILOL 6.25 MG TABLET (COREG) PO SCH ×2 (22:57→23:54)
[2022-03-07] MEDS: ISOSORBIDE DINITRATE 10 MG TABLET (ISORDIL) PO SCH (23:54)
[2022-03-08] VITALS: BP_SYST 160
[2022-03-08] MEDS: CEFTRIAXONE SOD 1 GM/ D5W 50 ML IV SCH ×4 (00:02→21:38)
[2022-03-08] MEDS: AZITHROMYCIN 500 MG in NS 250 ML IV SCH ×2 (00:02→21:39)
[2022-03-08] MEDS: NORMAL SALINE 5 ML DISP.SYRIN IVF SCH ×4 (00:24→21:47)
--- NOTE | 2022-03-08 00:26 | NUR ---
MIDLINE Approximately at this time, Mlian inserted MIDLINE right upper arm
--- NOTE | 2022-03-08 01:59 | NUR ---
PATIENT FEELING NAUSEATED, WANTS TO VOMIT Tigre Luna - notified of new midline insertino Orders: Zofran 4mg IVP Q6H to change from previous protonix PO. Also asked about converting ativan IM to IVP. Orders Ativan 1mg IVP Q6HP. Addendum: 03/08/22 at 0217 by Rudolph Stephenson RN zofran q6hp
[2022-03-08] MEDS ORDERED: LORazepam 1 MG TABLET PO PRN (02:00)
[2022-03-08] MEDS ORDERED: LORazepam 2 MG/ML VIAL IVP PRN (02:15)
[2022-03-08] MEDS: ONDANSETRON HCL 4 MG/2 ML VIAL IVP PRN (02:27)
[2022-03-08] MEDS ORDERED: ONDANSETRON HCL 4 MG/2 ML VIAL ONE (02:29)
--- NOTE | 2022-03-08 03:00 | NUR ---
Patient frequently removing telemonitor at this time. Reminding patient to not remove them. Patient verbalizes understanding.
[2022-03-08 04:00] VITALS: BP_SYST 150
[2022-03-08 07:18] LABS: BASOPHILS # (AUTO) 0.1 K/uL (0.0-0.2); BASOPHILS % (AUTO) 1.3 % (0.0-2.0); EOSINOPHILS # (AUTO) 0.1 K/uL (0.0-0.4); EOSINOPHILS % (AUTO) 1.3 % (0.0-4.0); HEMATOCRIT 28.3 % (36-54); HEMOGLOBIN 9.6 g/dL (14.0-18.0); LYMPHOCYTES # (AUTO) 1.2 K/uL (1.0-5.5); LYMPHOCYTES % (AUTO) 17.1 % (20.5-51.5); MEAN CORPUSCULAR HEMOGLOBIN 30 pg (27-31); MEAN CORPUSCULAR HGB CONC 34 % (32-36); MEAN CORPUSCULAR VOLUME 88 fL (79.0-98.0); MONOCYTES # (AUTO) 0.7 K/uL (0.0-1.0); MONOCYTES % (AUTO) 9.7 % (1.7-9.3); NEUTROPHILS % (AUTO) 70.6 % (40.0-70.0); PLATELET COUNT (AUTO) 183 K/uL (130-430); RED BLOOD CELL COUNT(AUTO) 3.23 MIL/uL (4.2-6.2); RED CELL DISTRIBUTION WIDTH 21.4 % (9.0-15.0); WHITE BLOOD COUNT (AUTO) 7.1 K/uL (4.8-10.8)
--- NOTE | 2022-03-08 07:38 | NUR ---
CLOSING NOTES Patient resting in bed - no s/s pain or distress noted. Respirations even and unlabored - head of bed elevated. Midline patent. Bed locked and in lowest position. Call light within reach.
[2022-03-08 07:43] LABS: CALCIUM 8.5 mg/dL (8.4-11.0); CREATININE 6.59 mg/dL (0.55-1.30); PHOSPHORUS 4.4 mg/dL (2.7-4.5); POTASSIUM 4.1 mmol/L (3.5-5.1)
--- NOTE | 2022-03-08 08:00 | NUR ---
Mr Thorpe has been assessed as indicated. He denies pain. He does have spasm that cause he jerk out of his sleep. He is resting quietly
[2022-03-08] MEDS ORDERED: PANTOPRAZOLE SODIUM 40 MG TAB PO SCH (09:00)
[2022-03-08] MEDS: ISOSORBIDE DINITRATE 10 MG TABLET (ISORDIL) PO SCH ×3 (09:46→21:37)
[2022-03-08] MEDS: CARVEDILOL 6.25 MG TABLET (COREG) PO SCH ×2 (09:47→21:37)
[2022-03-08 12:00] VITALS: BP_SYST 146
[2022-03-08] MEDS ORDERED: ONDANSETRON HCL 4 MG/2 ML VIAL IVP SCH (12:00)
--- NOTE | 2022-03-08 12:00 | NUR ---
Midline flushes well. He has completed an abdominal ultrasound. the procedure was well tolerated. Midline flushes well. He was assisted with a shower. He continues to deny pain
[2022-03-08] MEDS ORDERED: hydrALAZINE HCL 25 MG TABLET PO ONE (13:30)
[2022-03-08] MEDS: LORazepam 1 MG TABLET PO PRN (13:54)
[2022-03-08 16:51] VITALS: BP_SYST 148
[2022-03-08] MEDS ORDERED: FUROSEMIDE 40 MG TABLET PO SCH (18:00)
[2022-03-08 19:00] VITALS: BP_SYST 156
--- NOTE | 2022-03-08 19:47 | NUR ---
Dietitian Recommendations * Continue Renal, Na2gm diet, as tolerated * Recommend renal MVI + Nepro ONS BID for poor PO intake * Encourage good PO intake, >75% of meals Please refer to Nutritional Assessment for details, thanks! CC, MPH, RDN
[2022-03-09] VITALS: BP_SYST 156
[2022-03-09] MEDS: ONDANSETRON HCL 4 MG/2 ML VIAL IVP PRN (01:16)
[2022-03-09] MEDS: LORazepam 1 MG TABLET PO PRN ×2 (01:20→13:22)
[2022-03-09] MEDS: NORMAL SALINE 5 ML DISP.SYRIN IVF SCH ×3 (07:00→21:20)
[2022-03-09 07:09] LABS: CALCIUM 8.1 mg/dL (8.4-11.0); POTASSIUM 4.5 mmol/L (3.5-5.1)
[2022-03-09] MEDS ORDERED: LIDOCAINE 1%, 20 ML MDV 20 ML ONE (07:34)
[2022-03-09 07:40] LABS: BASOPHILS # (AUTO) 0.1 K/uL (0.0-0.2); EOSINOPHILS # (AUTO) 0.1 K/uL (0.0-0.4); EOSINOPHILS % (AUTO) 1.4 % (0.0-4.0); HEMATOCRIT 28.4 % (36-54); HEMOGLOBIN 9.7 g/dL (14.0-18.0); LYMPHOCYTES # (AUTO) 0.9 K/uL (1.0-5.5); MEAN CORPUSCULAR HEMOGLOBIN 30 pg (27-31); MEAN CORPUSCULAR HGB CONC 34 % (32-36); MEAN CORPUSCULAR VOLUME 87 fL (79.0-98.0); MONOCYTES # (AUTO) 0.6 K/uL (0.0-1.0); NEUTROPHILS # (AUTO) 6.4 K/uL (1.8-7.7); NEUTROPHILS % (AUTO) 78.6 % (40.0-70.0); PLATELET COUNT (AUTO) 175 K/uL (130-430); RED BLOOD CELL COUNT(AUTO) 3.27 MIL/uL (4.2-6.2); RED CELL DISTRIBUTION WIDTH 21.2 % (9.0-15.0); WHITE BLOOD COUNT (AUTO) 8.1 K/uL (4.8-10.8)
[2022-03-09 08:21] LABS: CREATININE 7.88 mg/dL (0.55-1.30)
[2022-03-09 08:22] VITALS: BP_SYST 145
[2022-03-09] MEDS ORDERED: hydrALAZINE HCL 25 MG TABLET PO SCH (09:00)
[2022-03-09] MEDS: CARVEDILOL 6.25 MG TABLET (COREG) PO SCH ×2 (09:00→20:47)
[2022-03-09] MEDS: ISOSORBIDE DINITRATE 10 MG TABLET (ISORDIL) PO SCH ×3 (09:00→20:47)
[2022-03-09 11:41] VITALS: BP_SYST 159
[2022-03-09] MEDS: DIPHENHYDRAMINE HCL 50 MG CAPSULE PO PRN ×2 (12:14→20:47)
--- NOTE | 2022-03-09 12:43 | NUR ---
MRSA NARES COLLECTED AND SENT TO LAB. ALSO BLOOD COLLECTED BY HD NURSE, KATHRYN FOR HEPATITIS PANEL AND SENT TO LAB.
--- NOTE | 2022-03-09 12:45 | NUR ---
HD ONGOING AT THIS TIME WITH HD NURSE, KATHRYN. PT IN STABLE CONDITION. WILL CONTINUE TO MONITOR PT CLOSELY.
--- NOTE | 2022-03-09 13:12 | NUR ---
S/W SIRI [employer] TECH, SHE STATED US PARACENTESIS WILL BE DONE TOMORROW 03/10, NOT AVAILABLE ANYMORE IN THE AFTERNOON.
--- NOTE | 2022-03-09 13:23 | NUR ---
PT STATING HE IS HAVING ANXIETY. HD NURSE ALSO CAME OUT TO SAY PT WANTS TO STOP DIALYSIS. ATIVAN PO PRN GIVEN. EMOTIONAL SUPPORT PROVIDED TO PT. PT FOR NOW OK TO CONTINUING HD.
--- NOTE | 2022-03-09 18:11 | NUR ---
CLOSING NOTE: PT REMAINED STABLE THROUGHOUT THE DAY. HD COMPLETED TODAY WITHOUT NO COMPLICATIONS- 2.5L OUTPUT. PENDING US PARACENTESIS TOMORROW 03/10/22- NO PREP NEEDED PER US SIRI TECH. ALL CARE NEEDS MET. FALL/SAFETY PRECAUTIONS. BED IN LOW POSITION.
[2022-03-09 20:00] VITALS: BP_SYST 139
[2022-03-09] MEDS: CEFTRIAXONE SOD 1 GM/ D5W 50 ML IV SCH ×2 (21:16)
[2022-03-09] MEDS: AZITHROMYCIN 500 MG in NS 250 ML IV SCH (21:19)
[2022-03-10 00:06] VITALS: BP_SYST 151
[2022-03-10] MEDS: NORMAL SALINE 5 ML DISP.SYRIN IVF SCH (05:30)
[2022-03-10 08:06] LABS: HEPATITIS A AB, IgM Negative (Negative); HEPATITIS B CORE AB, IgM Negative (Negative); HEPATITIS B SURFACE AG Negative (Negative)
[2022-03-10 08:07] LABS: BASOPHILS # (AUTO) 0.1 K/uL (0.0-0.2); BASOPHILS % (AUTO) 0.9 % (0.0-2.0); EOSINOPHILS # (AUTO) 0.1 K/uL (0.0-0.4); EOSINOPHILS % (AUTO) 1.8 % (0.0-4.0); HEMATOCRIT 29.4 % (36-54); HEMOGLOBIN 9.8 g/dL (14.0-18.0); LYMPHOCYTES # (AUTO) 1.4 K/uL (1.0-5.5); LYMPHOCYTES % (AUTO) 19.6 % (20.5-51.5); MEAN CORPUSCULAR HEMOGLOBIN 29 pg (27-31); MEAN CORPUSCULAR HGB CONC 34 % (32-36); MEAN CORPUSCULAR VOLUME 88 fL (79.0-98.0); MONOCYTES # (AUTO) 0.7 K/uL (0.0-1.0); MONOCYTES % (AUTO) 9.1 % (1.7-9.3); NEUTROPHILS % (AUTO) 68.6 % (40.0-70.0); PLATELET COUNT (AUTO) 173 K/uL (130-430); RED BLOOD CELL COUNT(AUTO) 3.34 MIL/uL (4.2-6.2); RED CELL DISTRIBUTION WIDTH 20.8 % (9.0-15.0); WHITE BLOOD COUNT (AUTO) 7.2 K/uL (4.8-10.8)
--- NOTE | 2022-03-10 08:10 | NUR ---
Pt sitting up, refused to have anything done. No sign of distress, no vital signs done. Pt wants to leave against medical advice. AMA form signed. Informed that pt that medical professional/hospital is not responsible if anything happens to him if he leaves AMA. However,he may come back and seek medical attention any time he feels the need. Belongings returned to the patient and MID line discontinued, 15 cm noted with tip intact. No bleeding noted. Pressured for 10 min and monitored for any bleeding. Pt insisted of not waiting for another 10 min. Pt was adamant of leaving and spouse is waiting outside. Pt was assisted out of the unit via wheelchair by security.
[2022-03-10 08:14] LABS: CALCIUM 8.2 mg/dL (8.4-11.0); CREATININE 6.9 mg/dL (0.55-1.30); POTASSIUM 4.2 mmol/L (3.5-5.1)
--- NOTE | 2022-03-10 09:06 | NUR ---
Informed Dr. Luna that pt left AMA.
== END 2022-03-10 08:25 | disposition left against medical advice (07) ==
LOC: SED 19:18 → STU 21:18 → SMU 03-08 23:26
PROVIDERS: ADMIT Internal Medicine; ATTEND Internal Medicine
PROC: 5A1D70Z Performance of Urinary Filtration, Intermittent, Less than 6 Hours Per Day (ICD-10-PCS; principal; 2022-03-07)
PROC: 5A1D70Z Performance of Urinary Filtration, Intermittent, Less than 6 Hours Per Day (ICD-10-PCS; 2022-03-09)
DX: K74.60 Unspecified cirrhosis of liver (principal); J96.21 Acute and chronic respiratory failure with hypoxia; I50.23 Acute on chronic systolic (congestive) heart failure; E43 Unspecified severe protein-calorie malnutrition; N18.6 End stage renal disease; R18.8 Other ascites; D63.1 Anemia in chronic kidney disease; E11.22 Type 2 diabetes mellitus with diabetic chronic kidney disease; I13.2 Hypertensive heart and chronic kidney disease with heart failure and with stage 5 chronic kidney disease, or end stage renal disease; I50.9 Heart failure, unspecified; J44.9 Chronic obstructive pulmonary disease, unspecified; Z20.822 Contact with and (suspected) exposure to COVID-19; Z53.29 Procedure and treatment not carried out because of patient's decision for other reasons; I25.10 Atherosclerotic heart disease of native coronary artery without angina pectoris; F17.210 Nicotine dependence, cigarettes, uncomplicated; Z68.29 Body mass index [BMI] 29.0-29.9, adult; Z90.49 Acquired absence of other specified parts of digestive tract; Z99.2 Dependence on renal dialysis
CPT/HCPCS: 36415; 36600; 71045; 76705; 80048; 80053; 80074; 80307; 81000; 82803-TC; 82962; 83036; 83690; 83735; 83880; 84100; 84484; 85025; 85730-TC; 87040; 87081; 90935; 90937; 93005; 96365; 96367; 96375; 99285; G0378; J0456; J0696; J1200; J1940; J2001; J2405; J7050; J7060; Q0163; U0003

== ENCOUNTER 2022-03-22 19:17 | Inpatient (IN) | payer MEDICAID ==
[~2022-03-22] VITALS: Ht 165.1 cm; Wt 79.4 kg
[2022-03-22 19:22] VITALS: BP_SYST 100
[2022-03-22 19:23] VITALS: BP_SYST 165
--- NOTE | 2022-03-22 19:26 | NUR ---
Patient to ER bed 03 to gown for evaluation. Side rails up. Report given to Rg COSTA.
--- NOTE | 2022-03-22 19:28 | NUR ---
Pt BIBA from home with c/o abd pain and leg pain started today, rated 8/10. Pt also reports not being able to breath while laying down, itching all over the body, abd hernia, and chest pain earlier today that subsided after he administered nitro at home. Reports dialysis, cardiac stents, and insulin dependent. A&O x4, and following commands.
--- NOTE | 2022-03-22 19:30 | NUR ---
ER at bedside examining patient.
[2022-03-22] MEDS ORDERED: ASPIRIN 81 MG TAB.CHEW PO ONE (20:00)
[2022-03-22] MEDS ORDERED: HYDROcodone/ACETAMIN 5-325 MG TAB (NORCO/ VICODIN) PO ONE (20:00)
--- NOTE | 2022-03-22 20:15 | NUR ---
Pt C/O bilateral leg swellings/ abdominal swelling and cough AOX4 VSS Able to make needs known Will continue to monitor
[2022-03-22 20:32] LABS: BASOPHILS # (AUTO) 0.1 K/uL (0.0-0.2); BASOPHILS % (AUTO) 1.1 % (0.0-2.0); EOSINOPHILS # (AUTO) 0.1 K/uL (0.0-0.4); EOSINOPHILS % (AUTO) 1.9 % (0.0-4.0); HEMATOCRIT 32.4 % (36-54); LYMPHOCYTES # (AUTO) 1.1 K/uL (1.0-5.5); LYMPHOCYTES % (AUTO) 17.5 % (20.5-51.5); MEAN CORPUSCULAR VOLUME 89 fL (79.0-98.0); MONOCYTES # (AUTO) 0.5 K/uL (0.0-1.0); MONOCYTES % (AUTO) 7.7 % (1.7-9.3); NEUTROPHILS # (AUTO) 4.4 K/uL (1.8-7.7); NEUTROPHILS % (AUTO) 71.8 % (40.0-70.0); PLATELET COUNT (AUTO) 185 K/uL (130-430); RED BLOOD CELL COUNT(AUTO) 3.63 MIL/uL (4.2-6.2); RED CELL DISTRIBUTION WIDTH 21.4 % (9.0-15.0); WHITE BLOOD COUNT (AUTO) 6.2 K/uL (4.8-10.8)
[2022-03-22 20:51] LABS: ANION GAP 12 (5-15); CALCIUM 8.6 mg/dL (8.4-11.0); CHLORIDE 94 mmol/L (98-107); CREATININE 6.98 mg/dL (0.55-1.30); GLUCOSE 314 mg/dL (70-99); POTASSIUM 3.9 mmol/L (3.5-5.1); SODIUM SERUM 134 mmol/L (136-145); UREA NITROGEN, BLOOD 46 mg/dL (8-21)
[2022-03-22 20:55] LABS: GFR AFRICAN AMERICAN 11 mL/min (>90)
[2022-03-22 20:56] LABS: ALANINE AMINOTRANSFERASE 16 U/L (12-78); ALBUMIN 2.8 g/dL (3.4-4.8); ASPARTATE AMINOTRANSFERASE 23 U/L (10-37)
[2022-03-22] MEDS ORDERED: DIPHENHYDRAMINE INJ 50 MG/ML VIAL IVP ONE (21:00)
--- NOTE | 2022-03-22 21:26 | NUR ---
Pt seen taking pills in bed Pt states he's "taking tramzadol from home for anxiety" Instructed pt to not take pills from home while in ED DILSHAD made aware
--- NOTE | 2022-03-23 00:24 | NUR ---
Pt resting comfortably in bed AOX4 VSS Able to make needs known NAD at this time Will continue to monitor
--- NOTE | 2022-03-23 04:07 | NUR ---
Pt resting comfortably in bed AOX4 VSS Able to make needs known NAD at this time Will continue to monitor
[2022-03-23] MEDS ORDERED: NITROGLYCERIN 1 INCH (GM) OINT. TP ONE (07:15)
--- NOTE | 2022-03-23 07:29 | NUR ---
SPOKE WITH CONSULT DR GUY AND HE WILL CALL BACK
--- NOTE | 2022-03-23 07:31 | NUR ---
ADMISSION CONSULTS PER DR. DIAMOND HAVE BEEN PAGED.
--- NOTE | 2022-03-23 07:39 | NUR ---
Belongings list documented. DANO Portillo
--- NOTE | 2022-03-23 08:55 | NUR ---
JULISSA FARNSWORTH FROM DIALYSIS CALLED, ASKED WHAT ROOM PATIENT WILL BE IN TO CARRY OUT DIALYSIS ORDERS FROM MD GUY. TO CALL HOUSE BRIE RUFF FOR BED STATUS.
--- NOTE | 2022-03-23 09:00 | NUR ---
MD ZELAYA AT BEDSIDE FOR CARDIO CONSULT. PT VSS. NAD NOTED. WILL CONT TO MONITOR PT.
[2022-03-23] MEDS ORDERED: NALOXONE HCL 0.4 MG/ML AMP (NARCAN) IVP PRN (09:30)
[2022-03-23] MEDS ORDERED: HYDROcodone/ACETAMIN 5-325 MG TAB (NORCO/ VICODIN) PO PRN (09:30)
--- NOTE | 2022-03-23 09:53 | NUR ---
BEDSIDE REPORT TO MICHELL COSTA FOR ROOM 130A TELE. PT AMBULATED TO BED. NAD NOTED. VSS. AAOX4. DIALYSIS SCHEDULED, RN DAJA READY TO DIALYZE. HOUSE SUP ELZBIETA AWARE. ALL QUESTIONS ANSWERED. END OF CARE.
[2022-03-23 12:00] VITALS: BP_SYST 164
[2022-03-23 14:23] VITALS: BP_SYST 159
[2022-03-23] MEDS: ISOSORBIDE DINITRATE 10 MG TABLET (ISORDIL) PO SCH ×2 (16:18→21:00)
[2022-03-23] MEDS: CARVEDILOL 6.25 MG TABLET (COREG) PO SCH (21:00)
--- NOTE | 2022-03-24 07:20 | NUR ---
OPENING NOTE PT IN BED RESPIRATIONS EVEN, REGULAR AND NON-LABORED. NO IV SITE. DENIES ANY PAIN OR DISCOMFORT. CALL LIGHT WITHIN REACH. SAFETY PRECAUTION IN PLACED. WILL CONT TO MONITOR
[2022-03-24 07:47] LABS: CALCIUM 8.5 mg/dL (8.4-11.0); CREATININE 6.79 mg/dL (0.55-1.30)
[2022-03-24 07:53] LABS: ALBUMIN 2.3 g/dL (3.4-4.8); TOTAL BILIRUBIN 0.9 mg/dL (0.0-1.0)
[2022-03-24 07:54] LABS: BASOPHILS # (AUTO) 0.1 K/uL (0.0-0.2); BASOPHILS % (AUTO) 1.2 % (0.0-2.0); EOSINOPHILS # (AUTO) 0.1 K/uL (0.0-0.4); EOSINOPHILS % (AUTO) 2.6 % (0.0-4.0); HEMATOCRIT 29.1 % (36-54); LYMPHOCYTES # (AUTO) 1.3 K/uL (1.0-5.5); LYMPHOCYTES % (AUTO) 25.2 % (20.5-51.5); MEAN CORPUSCULAR VOLUME 88 fL (79.0-98.0); MONOCYTES # (AUTO) 0.4 K/uL (0.0-1.0); MONOCYTES % (AUTO) 8.1 % (1.7-9.3); NEUTROPHILS # (AUTO) 3.2 K/uL (1.8-7.7); NEUTROPHILS % (AUTO) 62.9 % (40.0-70.0); PLATELET COUNT (AUTO) 172 K/uL (130-430); RED CELL DISTRIBUTION WIDTH 20.3 % (9.0-15.0); WHITE BLOOD COUNT (AUTO) 5.1 K/uL (4.8-10.8)
[2022-03-24 08:00] VITALS: BP_SYST 149
[2022-03-24] MEDS ORDERED: FERROUS SULFATE 300 MG/5 ML UDC PO SCH (09:00)
[2022-03-24] MEDS: ISOSORBIDE DINITRATE 10 MG TABLET (ISORDIL) PO SCH ×3 (09:47→20:57)
[2022-03-24] MEDS: PANTOPRAZOLE SODIUM 40 MG TAB PO SCH (09:48)
[2022-03-24] MEDS: CLOPIDOGREL BISULFATE 75 MG TABLET PO SCH (09:49)
[2022-03-24] MEDS: CARVEDILOL 6.25 MG TABLET (COREG) PO SCH ×2 (09:49→20:58)
--- NOTE | 2022-03-24 10:30 | NUR ---
IN INSERTION INITIATED PERIPHERAL IV INSERTION BY USING ASEPTIC TECHNIQUE. OBTAINED VERBAL CONSENT. FLUSHED WITH 10 CC NS, GOOD BLOOD RETURN NOTED AND COVERED WITH TRANSPARENT DRESSING. PT TOLERATED WELL. DENIES ANY PAIN OR DISCOMFORT AT THE SITE.
[2022-03-24] MEDS ORDERED: CARV12.548 PO (11:31)
[2022-03-24 12:00] VITALS: BP_SYST 145
--- NOTE | 2022-03-24 13:00 | NUR ---
PARACENTESIS PARACENTESIS WILL BE DONE TOMORROW ( 03/25/22),FOR RADIOLOGY STAFF IS NOT AVAILABLE THIS AFTERNOON.
--- NOTE | 2022-03-24 14:30 | NUR ---
SHOWER PT REQUEST FOR SHOWER. PROVIDED TOILETRY SUPPLIES AND NEW GOWN. WALKED WITH PT TO SHOWER ROOM. AFTER SHOWER, WALKED PT BACK TO HIS ROOM. Addendum: 03/24/22 at 1557 by Naren Delgadillo RN STEADY GAITRonen [id number]
--- NOTE | 2022-03-24 15:00 | NUR ---
GLENN REY TO FARAZ MIDLINE PLACEMENT ORDER. Addendum: 03/24/22 at 1907 by Naren Delgadillo RN MD NATHAN SANTANA
--- NOTE | 2022-03-24 19:05 | NUR ---
CLOSING NOTE PROVIDED SBAR TO PAINT MIXER HAND NURSE. PT IN BED, EATING DINNER. DENIES PAIN/ DISCOMFORT. IV SL REMAIN CLEAN AND INTACT. BED IS LOCKED AND AT LOW POSITION. SAFETY PRECAUTION IN PLACED. ENDORSED CARE TO PAINT MIXER HAND NURSE.
--- NOTE | 2022-03-24 19:15 | NUR ---
OPENING NOTE REPORT RECEIVED FROM DAYSHIFT NURSE. PATIENT RECEIVED LYING IN BED, AWAKE, NO S/S OF ACUTE DISTRESS. BREATHING EVEN AND UNLABORED. IV SITE IS PATENT, NO SIGNS OF INFILTRATION OR INFECTION NOTED. CALL LIGHT WITH PATIENT. BED IS LOCKED AND AT LOWEST POSITION. WILL CONTINUE TO MONITOR.
[2022-03-24 20:00] VITALS: BP_SYST 136
--- NOTE | 2022-03-24 21:00 | NUR ---
SHOWER PATIENT COMPLAINING OF BEING ITCHY, PRN MEDICATION GIVEN. PATIENT STATED " I WANT TO TAKE A SHOWER.". DR. DIAMOND MADE AWARE AT NURSING STATION, MD SAID OK. HYGIENE SUPPLIES PROVIDED FOR PATIENT, ESCORTED TO SHOWER ROOM. ALL NEEDS MET. WILL CONTINUE TO MONITOR.
[2022-03-25] VITALS: BP_SYST 128
--- NOTE | 2022-03-25 02:24 | NUR ---
ROUNDS PATIENT IN BED, RESTING. NO SIGNS OF DISCOMFORT. CHEST RISE AND FALL EVEN BILATERALLY. CALL LIGHT WITH PATIENT. WILL CONTINUE TO MONITOR.
--- NOTE | 2022-03-25 03:49 | NUR ---
REFUSES TELEBOX LEADS ARE OFF AT THIS TIME, RN ATTEMPTED TO REATTACH, PATIENT STATED "LET ME SLEEP", AND REFUSES TO HAVE BLANKET REMOVED. CHARGE NURSE MADE AWARE. PATIENT EDUCATED ON ITS PURPOSE AND BENEFITS, PATIENT STILL REFUSES. WILL REATTEMPT LATER.
--- NOTE | 2022-03-25 06:27 | NUR ---
CLOSING NOTE PATIENT IN BED, WATCHING ON HIS CELLPHONE, NO S/S OF ACUTE DISTRESS. BREATHING EVEN AND UNLABORED. IV SITE IS PATENT, NO SIGNS OF INFILTRATION OR INFECTION NOTED. ALL NEEDS MET THROUGHOUT SHIFT. FALL, SAFETY PRECAUTIONS MAINTAINED THROUGHOUT SHIFT. WILL CONTINUE TO MONITOR UNTIL PATIENT CARE IS ENDORSED TO ONCOMING DAYSHIFT NURSE.
[2022-03-25 08:09] VITALS: BP_SYST 143
[2022-03-25] MEDS ORDERED: FERROUS SULFATE 325 MG TABLET.DR PO SCH (09:00)
[2022-03-25] MEDS: CARVEDILOL 6.25 MG TABLET (COREG) PO SCH (09:00)
[2022-03-25] MEDS: ISOSORBIDE DINITRATE 10 MG TABLET (ISORDIL) PO SCH ×2 (09:00→10:54)
--- NOTE | 2022-03-25 09:40 | NUR ---
U/S TECH HERE AND DOING PARACENTESIS ON PT.
[2022-03-25 09:41] LABS: INR 1.4 (0.80-1.20); PROTHROMBIN TIME 13.8 SECS (9.5-12.5)
--- NOTE | 2022-03-25 10:00 | NUR ---
PARACENTECIS DONE, 3L OUIT PUIT, PT TOLERATED WELL.
[2022-03-25] MEDS: CLOPIDOGREL BISULFATE 75 MG TABLET PO SCH (10:54)
[2022-03-25] MEDS: PANTOPRAZOLE SODIUM 40 MG TAB PO SCH (10:54)
--- NOTE | 2022-03-25 11:27 | NUR ---
HD ONGOING AT THIS TIME.
[2022-03-25 16:09] VITALS: BP_SYST 148
--- NOTE | 2022-03-25 16:39 | NUR ---
D/C Patient Patient given medication reconciliation form and D/C instructions. Exit Care provided. Patient verbalized understanding. MD discussed with patient the results and treatment provided. Ambulatory with steady gait for discharge to home. Patient in stable condition, ID band removed. IV catheter removed, intact and dressing applied, no active bleeding. nO Rx given. Patient educated on pain management. All belongings sent with patient. Instructed patient to follow with PCP and Hemodialysis doctor and dialysis center. Told pt to follow up with PCP re his MRSA as ordered by DR Thacker and to hold off on eating salty foods and limit his water intake. Pt verbalized understanding.
== END 2022-03-25 16:00 | disposition home or self-care (01) ==
LOC: SED 19:17 → STU 03-23 07:15
PROVIDERS: ADMIT Family Medicine; ATTEND Family Medicine
PROC: 0W9G3ZZ Drainage of Peritoneal Cavity, Percutaneous Approach (ICD-10-PCS; principal; 2022-03-25)
PROC: 5A1D70Z Performance of Urinary Filtration, Intermittent, Less than 6 Hours Per Day (ICD-10-PCS; 2022-03-25)
DX: K74.60 Unspecified cirrhosis of liver (principal); I13.2 Hypertensive heart and chronic kidney disease with heart failure and with stage 5 chronic kidney disease, or end stage renal disease; R18.8 Other ascites; N18.6 End stage renal disease; I42.0 Dilated cardiomyopathy; E11.22 Type 2 diabetes mellitus with diabetic chronic kidney disease; R07.89 Other chest pain; I25.10 Atherosclerotic heart disease of native coronary artery without angina pectoris; F17.210 Nicotine dependence, cigarettes, uncomplicated; I34.0 Nonrheumatic mitral (valve) insufficiency; Z20.822 Contact with and (suspected) exposure to COVID-19; I50.9 Heart failure, unspecified; Z79.02 Long term (current) use of antithrombotics/antiplatelets; Z79.4 Long term (current) use of insulin; Z79.899 Other long term (current) drug therapy; Z90.49 Acquired absence of other specified parts of digestive tract; Z91.14 Patient's other noncompliance with medication regimen; Z99.2 Dependence on renal dialysis
CPT/HCPCS: 36415; 49083; 71045; 76705; 80053; 83880; 84484; 85025; 85610-TC; 87081; 90935; 90937; 93005; 94640; 94760; 96374; 99285; G0378; J1200

== ENCOUNTER 2022-06-19 14:03 | Inpatient (IN) | payer MEDICAID ==
[~2022-06-19] VITALS: Ht 165.1 cm; Wt 83.5 kg
[~2022-06-19 14:03] MED LIST changes: +CARV12.548 PO; -CARV6.2554 PO
--- NOTE | 2022-06-19 15:36 | NUR ---
ER IN TRIAGE examining patient.
[2022-06-19 15:40] VITALS: BP_SYST 157
--- NOTE | 2022-06-19 15:40 | NUR ---
Patient triaged and placed in waiting room. VSS and patient appears in no acute distress at this time. Accompanied by SELF, awaiting available bed, and MD notified of need for MSE. PATIENT BROUGHT IN COMPLAINING OF DARK BLOODY STOOLS SINCE YESTERDAY. DENIES ANY ABDOMINAL PAIN, NAUEA, VOMITING, DIARRHEA OR CONSTIPATION. PATIENT ALSO REPORT COUGH AND CONGESTION X "MONTHS" AFEBRILE, AOX4 AMBULATORY HX OF DM, HTN, HLD, ESRD DIALYSIS MWF.
[2022-06-19 16:22] LABS: BASOPHILS # (AUTO) 0.1 K/uL (0.0-0.2); EOSINOPHILS # (AUTO) 0.2 K/uL (0.0-0.4); EOSINOPHILS % (AUTO) 2.3 % (0.0-4.0); HEMATOCRIT 22.2 % (36-54); HEMOGLOBIN 7.3 g/dL (14.0-18.0); LYMPHOCYTES # (AUTO) 1.2 K/uL (1.0-5.5); LYMPHOCYTES % (AUTO) 16.8 % (20.5-51.5); MEAN CORPUSCULAR HEMOGLOBIN 29 pg (27-31); MEAN CORPUSCULAR HGB CONC 33 % (32-36); MEAN CORPUSCULAR VOLUME 89 fL (79.0-98.0); MONOCYTES # (AUTO) 0.8 K/uL (0.0-1.0); MONOCYTES % (AUTO) 10.6 % (1.7-9.3); NEUTROPHILS # (AUTO) 5.1 K/uL (1.8-7.7); NEUTROPHILS % (AUTO) 69.3 % (40.0-70.0); PLATELET COUNT (AUTO) 140 K/uL (130-430); RED BLOOD CELL COUNT(AUTO) 2.49 MIL/uL (4.2-6.2); RED CELL DISTRIBUTION WIDTH 17.7 % (9.0-15.0); WHITE BLOOD COUNT (AUTO) 7.4 K/uL (4.8-10.8)
[2022-06-19 16:45] LABS: ALBUMIN 2.9 g/dL (3.4-4.8); CALCIUM 7.6 mg/dL (8.4-11.0); TOTAL BILIRUBIN 0.6 mg/dL (0.0-1.0)
[2022-06-19 16:51] LABS: INR 1.3 (0.80-1.20); PROTHROMBIN TIME 12.9 SECS (9.5-12.5)
[2022-06-19 16:56] LABS: CREATININE 8.64 mg/dL (0.55-1.30)
--- NOTE | 2022-06-19 17:55 | NUR ---
Patient to ER bed H1 to gown for evaluation. Side rails up. Report RECEIVED FROM JULISSA KAT.
[2022-06-19] MEDS ORDERED: PROMETHAZINE HCL/CODEINE 6.25-10 mg/5 mL UDC PO ONE (18:45)
--- NOTE | 2022-06-19 19:20 | NUR ---
RECIEVED REPORT FROM YAN FOR CONTINUATION OF CARE. PATIENT AWAITING ADMISSION AND AWAITING PHENERGAN FROM PHARMACY
--- NOTE | 2022-06-19 20:45 | NUR ---
PATIENT MOVED TO BED 5 IN HOSPITAL BED. REPORT GIVEN TO JULISSA MCKEON FOR CONTINUATION OF CARE
--- NOTE | 2022-06-19 20:59 | NUR ---
Admit bed requested Patient will be admitted to care of . Admitted to MED SURG unit. Diagnosis ANEMIA AND GI BLEED Inpatient (Yes or No) Y Observation (Yes or No) N Orientation concerns or request close to nursing station (Yes or No) N Covid Status NEG On vent or bipap N Isolation requirements N Needs a sitter N From Home (Yes or if No enter name of facility) Y Requires Dialysis (Yes or No) Y/MWF Med Rec Completed (Yes of No) PENDING
[2022-06-19] MEDS: NACL 0.9% 1,000 ML IV SCH (21:44)
--- NOTE | 2022-06-19 22:22 | NUR ---
PT A/O X 4. VERBALIZING FEELING A LITTLE BIT
[2022-06-19 22:45] LABS: BASOPHILS # (AUTO) 0.1 K/uL (0.0-0.2); BASOPHILS % (AUTO) 1.1 % (0.0-2.0); EOSINOPHILS # (AUTO) 0.2 K/uL (0.0-0.4); LYMPHOCYTES # (AUTO) 1.6 K/uL (1.0-5.5); LYMPHOCYTES % (AUTO) 22.1 % (20.5-51.5); MEAN CORPUSCULAR HEMOGLOBIN 30 pg (27-31); MEAN CORPUSCULAR HGB CONC 34 % (32-36); MEAN CORPUSCULAR VOLUME 88 fL (79.0-98.0); MONOCYTES # (AUTO) 0.7 K/uL (0.0-1.0); NEUTROPHILS # (AUTO) 4.8 K/uL (1.8-7.7); NEUTROPHILS % (AUTO) 64.8 % (40.0-70.0); PLATELET COUNT (AUTO) 131 K/uL (130-430); RED BLOOD CELL COUNT(AUTO) 2.19 MIL/uL (4.2-6.2); RED CELL DISTRIBUTION WIDTH 17.2 % (9.0-15.0); WHITE BLOOD COUNT (AUTO) 7.4 K/uL (4.8-10.8)
[2022-06-19 23:08] LABS: HEMOGLOBIN 6.6 g/dL (14.0-18.0)
[2022-06-19 23:09] LABS: HEMATOCRIT 19.3 % (36-54)
--- NOTE | 2022-06-20 | NUR ---
PT VERBALIZED FEELING ANXIOUS AND NEEDING MED FOR COUGH
[2022-06-20] MEDS ORDERED: LORazepam 2 MG/ML VIAL IVP ONE ×2 (00:30→17:15)
[2022-06-20] MEDS: guaiFENesin 200 MG/10 ML UDC PO PRN (00:46)
[2022-06-20] MEDS ORDERED: HALOPERIDOL LACTATE 5 MG/ML VIAL IVP ONE (02:00)
--- NOTE | 2022-06-20 04:09 | NUR ---
S/W BLOOD BANK, PT'S BLOOD IS NOT QUITE READY. HOWEVER, ED MD AND BEDSIDE RN BOTH AGREE PT REMAINS IN STABLE CONDITION AWAITING TRANSFUSION WHEN BLOOD UNITS ARE READY AND RECOGNIZED IN SYSTEM
--- NOTE | 2022-06-20 05:00 | NUR ---
START 1ST UNIT PRBC TRANSFUSION WITH ELECTROPHYSIOLOGY NURSE PRACTITIONER BEDSIDE, VSS
--- NOTE | 2022-06-20 05:15 | NUR ---
VSS, BLOOD TRANS RATE INCREASED, WELL TOLERATED
--- NOTE | 2022-06-20 06:26 | NUR ---
LAB STATED " WILL DRAW PT AFTER BLOOD TRANSFUSION IS FINISHED" ER MD AND PATIENT ACCESS REGISTRAR AWARE. PT REMAINS IN STABLE CONDITION
--- NOTE | 2022-06-20 07:59 | NUR ---
RECEIVED PT REPORT FROM GISELA RN FOR CONTINUITY OF CARE. PATIENT IS ALERT AND ORIENTED X 4. NO S/S OF ACUTE DISTRESS. GI MD AT BEDSIDE. PT TO BE SCHEDULED FOR EGD AND COLONOSCOPY TOMORROW. PATIENT WITH 1ST UNIT PRBC BLOOD TRANSFUSION ONGOING WITH NO S/S OF ADVERSE REACTIONS. 20G ON RAC, TRANSFUSING WELL WITH NO S/S OF OBSTRUCTION OR INFILTRATION. PLAN OF CARE ONGOING.
--- NOTE | 2022-06-20 08:36 | NUR ---
PATIENT FINISHED 1ST UNIT OF PRBC WITH NO S/S OF ADVERSE REACTION. PATIENT TO RECEIVE ONE MORE UNIT OF PRBC. PLAN OF CARE ONGOING
--- NOTE | 2022-06-20 09:15 | NUR ---
Consent signed per patient agreeing to administration of blood. Blood has been type and crossmatched. Blood sent from blood bank. Information on unit of blood checked against patient wristband at bedside by two nurses, JULISSA Bernardo and JULISSA Garland. All information matches. Patient or responsible constitution party informed of potential complications associated with blood transfusion. Informed of possible transfusion reaction symptoms. Aware of need to notify nurse at once of itching, shortness of breath, flushing, feeling of impending doom, or other symptoms not previously present. Vital signs taken within 5 minutes prior to initiation of transfusion. RN will remain with patient for first 15 minutes of transfusion at which time vital signs will be re-assessed.
--- NOTE | 2022-06-20 09:22 | NUR ---
CASEWORK SPECIALIST AT BEDSIDE FOR ABDOMINAL ULTRASOUND
--- NOTE | 2022-06-20 09:30 | NUR ---
2ND UNIT OF PRBC ONGOING, WITH NO S/S OF ADVERSE REACTIONS. PATIENT SLEEPING COMFORTABLY IN BED, PLAN OF CARE ONGOING
--- NOTE | 2022-06-20 10:06 | NUR ---
Patient resting quietly. No acute distress noted. Vital signs within normal range.
[2022-06-20] MEDS ORDERED: BISACODYL 5 MG TABLET.DR (DULCOLAX) PO ONE (12:00)
--- NOTE | 2022-06-20 12:13 | NUR ---
PATIENT FINISHED 2ND UNIT OF PRBC WITH NO ADVERSE EFFECTS
[2022-06-20] MEDS: NACL 0.9% 1,000 ML IV SCH ×2 (12:38→18:10)
[2022-06-20] MEDS: PANTOPRAZOLE SODIUM 40 MG/VIAL (PROTONIX) IVP SCH (12:39)
[2022-06-20] MEDS ORDERED: GOLYTELY / COLYTE SOLUTION 4 LITERS PO ONE (13:00)
--- NOTE | 2022-06-20 14:13 | NUR ---
Patient resting quietly. No acute distress noted. Vital signs within normal range.
--- NOTE | 2022-06-20 15:23 | NUR ---
PATIENT IS ALERT AND ORIENTED X 4, PATIENT REFUSING TO DRINK THE GOLYTELY D/T HAVING DIFFICULTY BREATHING WHEN "HE DRINKS TOO MUCH FLUID"
--- NOTE | 2022-06-20 16:06 | NUR ---
EDUCATED PATIENT WITH REGARDS TO IMPORTANCE OF GOLYTELY FOR PLANNED PROCEDURE TOMORROW. PATIENT REFUSED STATING HE "CAN'T DO IT". PAGED DR. YANG TO UPDATE WITH REGARDS TO ASCITES AND PATIENT REFUSAL TO DRINK GOLYTELY. PAGED DR. NIEVES TO FOLLOW UP WITH DIALYSIS SCHEDULE.
[2022-06-20 16:39] LABS: BASOPHILS # (AUTO) 0.1 K/uL (0.0-0.2); BASOPHILS % (AUTO) 0.7 % (0.0-2.0); EOSINOPHILS # (AUTO) 0.1 K/uL (0.0-0.4); EOSINOPHILS % (AUTO) 0.9 % (0.0-4.0); HEMATOCRIT 30.6 % (36-54); HEMOGLOBIN 10.1 g/dL (14.0-18.0); LYMPHOCYTES # (AUTO) 1.7 K/uL (1.0-5.5); LYMPHOCYTES % (AUTO) 16.2 % (20.5-51.5); MEAN CORPUSCULAR HEMOGLOBIN 30 pg (27-31); MEAN CORPUSCULAR HGB CONC 33 % (32-36); MEAN CORPUSCULAR VOLUME 89 fL (79.0-98.0); MONOCYTES # (AUTO) 0.6 K/uL (0.0-1.0); MONOCYTES % (AUTO) 5.7 % (1.7-9.3); NEUTROPHILS % (AUTO) 76.5 % (40.0-70.0); PLATELET COUNT (AUTO) 143 K/uL (130-430); RED BLOOD CELL COUNT(AUTO) 3.43 MIL/uL (4.2-6.2); RED CELL DISTRIBUTION WIDTH 16.1 % (9.0-15.0); WHITE BLOOD COUNT (AUTO) 10.4 K/uL (4.8-10.8)
[2022-06-20 17:26] LABS: ALBUMIN 2.9 g/dL (3.4-4.8); CALCIUM 8.4 mg/dL (8.4-11.0); TOTAL BILIRUBIN 0.9 mg/dL (0.0-1.0)
[2022-06-20 17:31] LABS: CREATININE 9.55 mg/dL (0.55-1.30)
--- NOTE | 2022-06-20 18:09 | NUR ---
CALLED DR. CHAPARRO FOR NEPHRO CONSULT
--- NOTE | 2022-06-20 18:41 | NUR ---
ATTEMPTED TO CALL DR. CHAPARRO FOR NEPHRO CONSULT
--- NOTE | 2022-06-20 18:54 | NUR ---
SPOKE WITH REINALDO ORTIZ (DIALYSIS NURSE) OF NEED FOR DIALYSIS. DIALYSIS OFFICE [address] [place]
--- NOTE | 2022-06-20 19:22 | NUR ---
REPORT FROM ZACARIAS COSTA
--- NOTE | 2022-06-20 20:19 | NUR ---
PT MADE AWARE OF BED ASSIGNMENT. STATES PAIN IN ABD HAS GOTTEN "BETTER". EDUCATED PT ON IMPORTANCE OF FINISHING [employer].
--- NOTE | 2022-06-20 20:20 | NUR ---
Patient will be admitted to care of KASIE COSTA. Admitted to MS unit. Will go to room 123A. Belongings list completed. Complete and up to date summary report printed. SBAR report to be given at bedside with opportunity for questions.
--- NOTE | 2022-06-20 23:55 | NUR ---
Patient admitted to room 123 (a). No acute distress noted. No complaint of pain or discomfort. Will continue to monitor.
[2022-06-21] MEDS: guaiFENesin 200 MG/10 ML UDC PO PRN ×3 (02:53→21:37)
[2022-06-21] MEDS: NACL 0.9% 1,000 ML IV SCH ×2 (03:00→14:39)
[2022-06-21 04:00] VITALS: BP_SYST 153
--- NOTE | 2022-06-21 05:34 | NUR ---
Patient refused IV fluids.
--- NOTE | 2022-06-21 06:49 | NUR ---
Dialysis nurse here for dialysis.
[2022-06-21 07:17] LABS: INR 1.4 (0.80-1.20); PROTHROMBIN TIME 14.5 SECS (9.5-12.5)
[2022-06-21 07:31] LABS: CALCIUM 8.3 mg/dL (8.4-11.0); TOTAL BILIRUBIN 1.3 mg/dL (0.0-1.0)
[2022-06-21 07:51] LABS: CREATININE 9.97 mg/dL (0.55-1.30)
--- NOTE | 2022-06-21 07:52 | NUR ---
CRITICAL LAB: Ana from Laboratory called with critical lab value for BUN of 103 and Creat of 9.97. Medical record number and patient name verified. Read back of values done. JULISSA Solitario, notified of value.
[2022-06-21 08:00] VITALS: BP_SYST 168
[2022-06-21] MEDS: PANTOPRAZOLE SODIUM 40 MG/VIAL (PROTONIX) IVP SCH (09:30)
[2022-06-21] MEDS ORDERED: SIMETHICONE 40 MG/0.6 ML ML ONE (10:40)
[2022-06-21] MEDS: fentaNYL CITRATE/PF 100 MCG/2 ML AMP ONE ×4 (10:42→11:00)
[2022-06-21] MEDS: MIDAZOLAM HCL 5 MG/5 ML VIAL ONE ×5 (10:42→11:13)
[2022-06-21] MEDS ORDERED: EPINEPHrine JECT 0.1 MG/ML SYR ONE (11:33)
--- NOTE | 2022-06-21 14:44 | NUR ---
Outbound Call Center Representative BLADE GRINDER received a referral to see pt. for possible suicide. BLADE GRINDER intro. self to pt. who was in bed. Pt. stated he would be much better if he had something to eat. Pt. was AOx3. and had to pull out his wallet to give BLADE GRINDER his address. Pt. stated he lives there with a nephew and 3 nieces. Pt. was aware of the reason for being admitted to the hospital. BLADE GRINDER aked pt. if he has ever had a therapist for any Dx. like depression, anxiety. Pt. stated he has a therapist because about 3-4 months ago he could not sleep and began having panic attacks. Pt. could not recall the name of his therapist nor could he recall his prescribed med. Pt. stated it was a blue pill and he is to take it as needed. Pt stated he is good about taking his meds. Pt looked through his phone address book, but could not find his therapist contact. BLADE GRINDER asked pt. if he had ever felt suicidal. Pt. denied ever feeling this. BLADE GRINDER will remain available as needed.
[2022-06-21 20:00] VITALS: BP_SYST 147
[2022-06-21] MEDS: ISOSORBIDE DINITRATE 10 MG TABLET (ISORDIL) PO SCH (21:48)
[2022-06-21] MEDS: CARVEDILOL 12.5 MG TABLET (COREG) PO SCH (21:49)
--- NOTE | 2022-06-21 23:28 | NUR ---
Patient in bed. No acute distress noted. No complaint of pain or discomfort. Will continue to monitor.
[2022-06-22] VITALS: BP_SYST 168
[2022-06-22 06:51] LABS: CALCIUM 7.5 mg/dL (8.4-11.0)
[2022-06-22 07:14] LABS: CREATININE 7.79 mg/dL (0.55-1.30)
[2022-06-22 07:50] LABS: BASOPHILS # (AUTO) 0.1 K/uL (0.0-0.2); BASOPHILS % (AUTO) 0.9 % (0.0-2.0); EOSINOPHILS # (AUTO) 0.1 K/uL (0.0-0.4); EOSINOPHILS % (AUTO) 1.4 % (0.0-4.0); HEMATOCRIT 24.2 % (36-54); HEMOGLOBIN 8.3 g/dL (14.0-18.0); LYMPHOCYTES # (AUTO) 1.4 K/uL (1.0-5.5); LYMPHOCYTES % (AUTO) 19.8 % (20.5-51.5); MEAN CORPUSCULAR HEMOGLOBIN 31 pg (27-31); MEAN CORPUSCULAR HGB CONC 34 % (32-36); MEAN CORPUSCULAR VOLUME 89 fL (79.0-98.0); MONOCYTES # (AUTO) 0.7 K/uL (0.0-1.0); MONOCYTES % (AUTO) 10.4 % (1.7-9.3); NEUTROPHILS # (AUTO) 4.6 K/uL (1.8-7.7); NEUTROPHILS % (AUTO) 67.5 % (40.0-70.0); PLATELET COUNT (AUTO) 128 K/uL (130-430); RED BLOOD CELL COUNT(AUTO) 2.71 MIL/uL (4.2-6.2); RED CELL DISTRIBUTION WIDTH 16.7 % (9.0-15.0)
[2022-06-22 08:00] LABS: WHITE BLOOD COUNT (AUTO) 6.9 K/uL (4.8-10.8)
[2022-06-22 08:07] LABS: AFP, TUMOR MARKER <1.8 ng/mL (0.0-8.4)
[2022-06-22] MEDS: guaiFENesin 200 MG/10 ML UDC PO PRN ×2 (08:55→22:04)
[2022-06-22] MEDS: ISOSORBIDE DINITRATE 10 MG TABLET (ISORDIL) PO SCH ×3 (08:56→21:56)
[2022-06-22] MEDS: CARVEDILOL 12.5 MG TABLET (COREG) PO SCH ×2 (08:56→21:55)
[2022-06-22] MEDS: PANTOPRAZOLE SODIUM 40 MG/VIAL (PROTONIX) IVP SCH (09:01)
[2022-06-22 09:46] LABS: FERRITIN 771 ng/mL (30-400)
[2022-06-22 10:06] LABS: HEPATITIS A AB, IgM Negative (Negative); HEPATITIS B CORE AB, IgM Negative (Negative); HEPATITIS B SURFACE AG Negative (Negative)
[2022-06-22] MEDS: MUPIROCIN 2% TOPICAL OINTMENT 22 GM TP SCH ×2 (11:09→21:56)
[2022-06-22 11:45] VITALS: BP_SYST 134
[2022-06-22 14:57] VITALS: BP_SYST 157
[2022-06-22 16:44] VITALS: BP_SYST 144
[2022-06-23] VITALS: BP_SYST 160
[2022-06-23 04:44] VITALS: BP_SYST 145
[2022-06-23 06:49] LABS: BASOPHILS % (AUTO) 0.7 % (0.0-2.0); EOSINOPHILS # (AUTO) 0.1 K/uL (0.0-0.4); HEMATOCRIT 24.6 % (36-54); HEMOGLOBIN 8.3 g/dL (14.0-18.0); LYMPHOCYTES # (AUTO) 1.4 K/uL (1.0-5.5); LYMPHOCYTES % (AUTO) 19.3 % (20.5-51.5); MEAN CORPUSCULAR HEMOGLOBIN 30 pg (27-31); MEAN CORPUSCULAR HGB CONC 34 % (32-36); MEAN CORPUSCULAR VOLUME 89 fL (79.0-98.0); MONOCYTES # (AUTO) 0.8 K/uL (0.0-1.0); MONOCYTES % (AUTO) 10.7 % (1.7-9.3); NEUTROPHILS # (AUTO) 4.7 K/uL (1.8-7.7); NEUTROPHILS % (AUTO) 67.3 % (40.0-70.0); PLATELET COUNT (AUTO) 133 K/uL (130-430); RED BLOOD CELL COUNT(AUTO) 2.76 MIL/uL (4.2-6.2); RED CELL DISTRIBUTION WIDTH 16.8 % (9.0-15.0)
[2022-06-23 07:13] LABS: CALCIUM 7.7 mg/dL (8.4-11.0)
[2022-06-23 08:20] LABS: CREATININE 9.05 mg/dL (0.55-1.30)
[2022-06-23 08:29] VITALS: BP_SYST 150
--- NOTE | 2022-06-23 08:50 | NUR ---
Marilyn Augustine from lab called for critical lab value, creatinin 9.05. Heel Sewer made aware at this time. Will continue to monitor.
[2022-06-23] MEDS: ISOSORBIDE DINITRATE 10 MG TABLET (ISORDIL) PO SCH (11:44)
[2022-06-23] MEDS: CARVEDILOL 12.5 MG TABLET (COREG) PO SCH (11:44)
[2022-06-23] MEDS: PANTOPRAZOLE SODIUM 40 MG/VIAL (PROTONIX) IVP SCH (11:45)
[2022-06-23] MEDS: MUPIROCIN 2% TOPICAL OINTMENT 22 GM TP SCH (11:50)
[2022-06-23 13:43] VITALS: BP_SYST 135
[2022-06-23 15:46] VITALS: BP_SYST 122
--- NOTE | 2022-06-23 16:50 | NUR ---
Patient AAOx4 ambulantory and no acute distress noted. Patient eloped from the unit. Patient's IV found in the trash in patient's room. Nurse Directot and order administrator made aware.
[2022-06-23 21:18] LABS: APPEARANCE,SPUN,BODY FLUID BLOODY (CLEAR); BF APPEARANCE UNSPUN CLOUDY (CLEAR); BODY FLUID COLOR RED (LT YELLOW); BODY FLUID SOURCE/ TYPE PARACENTESIS; SOURCE/TYPE ,BODY FLUID PARACENTESIS
[2022-06-23 21:19] LABS: BODY FLUID TOTAL VOLUME 4525 mL; LYMPHOCYTES, BODY FLUID 83 %; NEUTROPHIL, BODY FLUID 17 %; RBC, BODY FLUID 4950 /uL; WBC, BODY FLUID 54 /uL
== END 2022-06-23 16:30 | disposition left against medical advice (07) | DRG 253 ==
LOC: SED 14:03 → SMU 20:53
PROVIDERS: ADMIT Internal Medicine; ATTEND Internal Medicine
PROC: 30233N1 Transfusion of Nonautologous Red Blood Cells into Peripheral Vein, Percutaneous Approach (ICD-10-PCS; 2022-06-20)
PROC: 5A1D70Z Performance of Urinary Filtration, Intermittent, Less than 6 Hours Per Day (ICD-10-PCS; 2022-06-21)
PROC: 0DB98ZX Excision of Duodenum, Via Natural or Artificial Opening Endoscopic, Diagnostic (ICD-10-PCS; principal; 2022-06-21 12:30)
PROC: 0DB78ZX Excision of Stomach, Pylorus, Via Natural or Artificial Opening Endoscopic, Diagnostic (ICD-10-PCS; 2022-06-21 12:30)
PROC: 0DBL8ZX Excision of Transverse Colon, Via Natural or Artificial Opening Endoscopic, Diagnostic (ICD-10-PCS; 2022-06-21 12:30)
PROC: 0W9G3ZZ Drainage of Peritoneal Cavity, Percutaneous Approach (ICD-10-PCS; 2022-06-23)
DX: K55.21 Angiodysplasia of colon with hemorrhage (principal); N18.6 End stage renal disease; I12.0 Hypertensive chronic kidney disease with stage 5 chronic kidney disease or end stage renal disease; R18.8 Other ascites; E44.0 Moderate protein-calorie malnutrition; D63.1 Anemia in chronic kidney disease; E11.22 Type 2 diabetes mellitus with diabetic chronic kidney disease; K29.60 Other gastritis without bleeding; K74.60 Unspecified cirrhosis of liver; E87.5 Hyperkalemia; Z20.822 Contact with and (suspected) exposure to COVID-19; I25.10 Atherosclerotic heart disease of native coronary artery without angina pectoris; K63.5 Polyp of colon; K64.8 Other hemorrhoids; D50.0 Iron deficiency anemia secondary to blood loss (chronic); Z79.1 Long term (current) use of non-steroidal anti-inflammatories (NSAID); Z79.899 Other long term (current) drug therapy; Z79.891 Long term (current) use of opiate analgesic; Z99.2 Dependence on renal dialysis; Z90.49 Acquired absence of other specified parts of digestive tract; Z87.19 Personal history of other diseases of the digestive system
CPT/HCPCS: 36415; 43239; 45380; 45382; 49083; 76376; 76700-TC; 80048; 80053; 80074; 82042; 82105; 82728; 82947; 83690; 84157; 85025; 85610-TC; 85730-TC; 86886; 86900; 86901; 86920; 87081; 88305; 88312; 88313; 89051-TC; 89060-TC; 90935; 96374; 96375; 99285; C9113; J0171; J1630; J2060; J2250; J3010; J7030; P9021

== ENCOUNTER 2022-07-09 12:19 | Emergency (ER) | payer MEDICAID ==
[~2022-07-09] VITALS: Ht 165.1 cm; Wt 84.4 kg
[2022-07-09 12:30] VITALS: BP_SYST 163
[2022-07-09] MEDS ORDERED: KETOROLAC TROMETHAMINE 30 MG VIAL IM ONE (14:30)
[2022-07-09] MEDS ORDERED: IBUP-1971 PO (16:29)
[2022-07-09] MEDS ORDERED: DICL20GE TP (16:29)
== END 2022-07-09 17:05 | disposition home or self-care (01) ==
LOC: SED 12:19
DX: S20.211A Contusion of right front wall of thorax, initial encounter (principal); E11.9 Type 2 diabetes mellitus without complications; I11.0 Hypertensive heart disease with heart failure; I50.9 Heart failure, unspecified; Z79.899 Other long term (current) drug therapy; V18.0XXA Pedal cycle driver injured in noncollision transport accident in nontraffic accident, initial encounter; Y93.89 Activity, other specified; Y92.89 Other specified places as the place of occurrence of the external cause; Y99.8 Other external cause status
CPT/HCPCS: 99283; 93005; 71100; 96372; J1885

== ENCOUNTER 2022-07-21 13:19 | Inpatient (IN) | payer MEDICAID ==
[~2022-07-21] VITALS: Ht 180.3 cm; Wt 72.7 kg
[~2022-07-21 13:19] MED LIST changes: -CARV12.548 PO; -CLOP75TA32 PO; +DICL20GE TP; -FER300L PO; -HYDR-3917 PO; +IBUP-1971 PO; -ISO10 PO; -PRO40 PO
[2022-07-21 13:28] VITALS: BP_SYST 118
--- NOTE | 2022-07-21 13:47 | NUR ---
57 YEAR OLD MALE, A&OX4, PT C/O OF RECTAL PAIN. PT STATES PAIN 02/16. PT DESCRIBES PAIN CRAMPING. PT STATES THAT PAIN BEGAN ON Monday07/17/2022. PT STATES LAST BOWEL MOVEMENT WAS ON 07/20/2022. PT STATES BOWEL MOVEMENT WAS DARK RED. PT DENIES Hx OF HEMMORHOIDS. PT DENIES TAKING BLOOD THINNERS.
[2022-07-21 13:57] LABS: BASOPHILS # (AUTO) 0.1 K/uL (0.0-0.2); EOSINOPHILS # (AUTO) 0.2 K/uL (0.0-0.4); EOSINOPHILS % (AUTO) 2.1 % (0.0-4.0); LYMPHOCYTES # (AUTO) 1.1 K/uL (1.0-5.5); LYMPHOCYTES % (AUTO) 13.9 % (20.5-51.5); MEAN CORPUSCULAR HEMOGLOBIN 31 pg (27-31); MEAN CORPUSCULAR HGB CONC 34 % (32-36); MEAN CORPUSCULAR VOLUME 91 fL (79.0-98.0); MONOCYTES # (AUTO) 0.6 K/uL (0.0-1.0); MONOCYTES % (AUTO) 7.1 % (1.7-9.3); NEUTROPHILS % (AUTO) 75.9 % (40.0-70.0); PLATELET COUNT (AUTO) 244 K/uL (130-430); RED BLOOD CELL COUNT(AUTO) 2.15 MIL/uL (4.2-6.2); RED CELL DISTRIBUTION WIDTH 17.5 % (9.0-15.0)
[2022-07-21 13:58] LABS: HEMATOCRIT 19.6 % (36-54); HEMOGLOBIN 6.6 g/dL (14.0-18.0)
[2022-07-21 14:11] LABS: CALCIUM 8.1 mg/dL (8.4-11.0); CREATININE 6.1 mg/dL (0.55-1.30)
[2022-07-21 14:15] LABS: INR 1.2 (0.80-1.20); PROTHROMBIN TIME 12.3 SECS (9.5-12.5)
[2022-07-21] MEDS ORDERED: fentaNYL CITRATE/PF 100 MCG/2 ML AMP IVP ONE (14:15)
[2022-07-21 14:16] LABS: ALBUMIN 2.7 g/dL (3.4-4.8); TOTAL BILIRUBIN 0.5 mg/dL (0.0-1.0)
--- NOTE | 2022-07-21 14:40 | NUR ---
PT SLEEPING AT THIS TIME. NO CHANGES
--- NOTE | 2022-07-21 14:54 | NUR ---
NOTIFIED ED ADMITTING, ANA REGARDING DR. GOMEZ'S REQUEST FOR ADMISSION. PER DR. GOMEZ, PT IS NOT STABLE FOR TRANSFER. WILL CONTACT WINDOW MAKER REGARDING THIS MATTER. PER FACESHEET: [facility]- [facility] *WILL CALL [facility] HOSPITALIST FOR ADMISSION
[2022-07-21] MEDS ORDERED: PANTOPRAZOLE SODIUM 80 MG in NS 100 ML IV ONE (15:00)
--- NOTE | 2022-07-21 15:15 | NUR ---
PT SLEEPING, EASILY AROUSABLE.
[2022-07-21] MEDS ORDERED: PANTOPRAZOLE SODIUM 40 MG/VIAL (PROTONIX) ONE (15:54)
[2022-07-21] MEDS ORDERED: ACETAMINOPHEN 325 MG TABLET PO PRN (16:30)
[2022-07-21] MEDS ORDERED: POTASSIUM CHLORIDE 20 MEQ TAB.PRT.SR PO PRN (16:30)
[2022-07-21] MEDS ORDERED: MORPHINE 2 MG/ML INJ. SYRINGE IVP PRN ×2 (16:30)
[2022-07-21] MEDS ORDERED: LORazepam 2 MG/ML VIAL IVP PRN (16:30)
[2022-07-21] MEDS ORDERED: DOCUSATE SODIUM 100 MG CAPSULE PO PRN (16:30)
[2022-07-21] MEDS ORDERED: MUPIROCIN 2% TOPICAL OINTMENT 22 GM NS PRN (16:30)
[2022-07-21] MEDS ORDERED: ONDANSETRON HCL 4 MG/2 ML VIAL IVP PRN (16:30)
[2022-07-21] MEDS ORDERED: MAGNESIUM SULFATE 50 ML IV PRN (16:30)
[2022-07-21] MEDS ORDERED: ALBMDI INH (18:04)
[2022-07-21] MEDS ORDERED: ISOS20TA8 PO (18:04)
[2022-07-21] MEDS ORDERED: MIRT-114 PO (18:04)
[2022-07-21] MEDS ORDERED: HYDR-4038 PO (18:04)
[2022-07-21] MEDS ORDERED: CARV12.548 PO (18:04)
[2022-07-21] MEDS ORDERED: CLOP75TA32 PO (18:04)
[2022-07-21] MEDS ORDERED: NITSL SL (18:04)
[2022-07-21] MEDS ORDERED: ALBU2.5V7 INH (18:04)
[2022-07-21] MEDS ORDERED: BUDE6HFA INH (18:04)
--- NOTE | 2022-07-21 18:05 | NUR ---
Medication reconciliation completed with information provided by PATIENT. Any prior medication reconciliation on file was reviewed and corrected.
--- NOTE | 2022-07-21 19:08 | NUR ---
Admit bed requested Patient will be admitted to care of . Admitted to TELE unit. Diagnosis GI BLEED Inpatient (Yes or No) Y Observation (Yes or No) N Orientation concerns or request close to nursing station (Yes or No) N Covid Status NEGATIVE On vent or bipap N Isolation requirements N Needs a sitter N From Home (Yes or if No enter name of facility) Y Requires Dialysis (Yes or No) Y Med Rec Completed (Yes of No) YES
--- NOTE | 2022-07-21 19:35 | NUR ---
PT RESTING IN BED AWAKE AND USING PHONE. PT PUT ON MONITOR, VSS. PT STATING HE WANTS TO EAT AND IS UPSET ABOUT NOT EATING. PT EDUCATED ON REASON FOR NPO ORDER. SAFETY PRECAUTIONS IN PLACE AND CONNECTED TO MONITOR.
--- NOTE | 2022-07-21 21:58 | NUR ---
PT RESTING IN BED. PT DENIES FEELING ANY DISCOMFORT OR PAIN AT THIS TIME AFTER THE 15 MINUTES OF BLOOD TRANSFUSION. VSS. SAFETY PRECAUTIONS IN PLACE AND CONNECTED TO MONITOR.
--- NOTE | 2022-07-22 00:10 | NUR ---
PT RESTING IN BED ASLEEP, EVEN AND UNLABORED RESP NOTED, NAD. VSS. SAFETY PRECAUTIONS IN PLACE AND CONNECTED TO MONITOR. PT REPORTS NO DISCOMFORT WITH BLOOD TRANSFUSION.
--- NOTE | 2022-07-22 01:47 | NUR ---
PT STATING NO DISCOMFORT AFTER THE FIRST 15 MINUTES OF SECOND PACK OF TRANSFUSION. VSS. SAFETY PRECAUTIONS IN PLACE AND CONNECTED TO MONITOR.
--- NOTE | 2022-07-22 04:00 | NUR ---
PT SITTING UP IN BED RESTING. PT ENCOURAGED TO LAY DOWN AND SLEEP BUT PERFERS TO SLEEP SITTING STRAIGHT UP IN BED. SAFETY PRECAUTIONS IN PLACE AND CONNECTED TO MONITOR.
--- NOTE | 2022-07-22 06:50 | NUR ---
DR. PORTILLO AT BEDSIDE WITH PATIENT.
[2022-07-22 06:57] LABS: BASOPHILS # (AUTO) 0.1 K/uL (0.0-0.2); EOSINOPHILS # (AUTO) 0.2 K/uL (0.0-0.4); HEMATOCRIT 22.1 % (36-54); HEMOGLOBIN 7.5 g/dL (14.0-18.0); LYMPHOCYTES # (AUTO) 1.3 K/uL (1.0-5.5); MEAN CORPUSCULAR HEMOGLOBIN 30 pg (27-31); MEAN CORPUSCULAR HGB CONC 34 % (32-36); MEAN CORPUSCULAR VOLUME 89 fL (79.0-98.0); MONOCYTES # (AUTO) 0.6 K/uL (0.0-1.0); MONOCYTES % (AUTO) 8.7 % (1.7-9.3); NEUTROPHILS # (AUTO) 4.5 K/uL (1.8-7.7); NEUTROPHILS % (AUTO) 67.3 % (40.0-70.0); PLATELET COUNT (AUTO) 213 K/uL (130-430); WHITE BLOOD COUNT (AUTO) 6.7 K/uL (4.8-10.8)
[2022-07-22 07:14] LABS: CALCIUM 8.2 mg/dL (8.4-11.0); CREATININE 7.36 mg/dL (0.55-1.30)
--- NOTE | 2022-07-22 07:20 | NUR ---
REPORT GIVEN TO POLLY COSTA TO ASSUME CARE.
--- NOTE | 2022-07-22 07:22 | NUR ---
Received report at this time. Pt presently on monitor. Resting with eyes closed. Resp even and unlabored. No acute distress noted.
[2022-07-22] MEDS ORDERED: ALBUTEROL MDI INHALATION 8 GM INH INH PRN (07:30)
[2022-07-22] MEDS ORDERED: NITROGLYCERIN 0.4 MG TAB.SUBL SL PRN (07:30)
[2022-07-22] MEDS ORDERED: BUDESONIDE/FORMOTEROL 160-4.5 mCg, 6 GM INHALER INH SCH (09:00)
[2022-07-22] MEDS ORDERED: ALBUTEROL SULFATE 0.083% 2.5 MG/3 ML VIAL.NEB INH PRN (09:15)
[2022-07-22 09:28] LABS: TOTAL IRON BIND. CAPACITY 245 ug/dL (250-450)
[2022-07-22] MEDS ORDERED: ALBUTEROL SULFATE 0.083% 2.5 MG/3 ML VIAL.NEB INH ONE (09:45)
[2022-07-22] MEDS ORDERED: BUDESONIDE 0.5 MG/2 ML AMPUL.NEB INH ONE (09:45)
[2022-07-22] MEDS: PANTOPRAZOLE SODIUM 40 MG/VIAL (PROTONIX) IVP SCH (10:00)
[2022-07-22 10:26] VITALS: BP_SYST 140
[2022-07-22] MEDS ORDERED: DEXTROSE 50% JECT 50 ML DISP.SYRIN IVP PRN (10:30)
[2022-07-22] MEDS: hydrALAZINE HCL 25 MG TABLET PO SCH ×3 (10:31→23:12)
[2022-07-22] MEDS: CARVEDILOL 12.5 MG TABLET (COREG) PO SCH ×2 (10:31→23:12)
[2022-07-22] MEDS: MIRTAZAPINE 15 MG TABLET PO SCH (10:31)
[2022-07-22] MEDS: ALBUTEROL SULFATE 0.083% 2.5 MG/3 ML VIAL.NEB INH SCH ×3 (13:44→23:59)
--- NOTE | 2022-07-22 16:00 | NUR ---
Spoke with dialysis nurse. Instructed to withhold medication due to dialysis. Physician aware.
[2022-07-22] MEDS: BUDESONIDE 0.5 MG/2 ML AMPUL.NEB INH SCH (19:00)
--- NOTE | 2022-07-22 22:36 | NUR ---
ADMISSION NOTE Received patient from ER via gurney. Patient admitted with diagnosis of GI BLEED. Patient is awake, alert, oriented X 4. Patient oriented to hospital room, call light, toileting, pain management and safety-teach back done. Patient informed that I (Alka) will be his nurse and that their room number is 101-A. Pt has is able to ambulate short distance. Pt stated," I can't walk long distance because I have weak knees." Will endorse to day shift nurse to request physical therapist evaluation. VSS stable, room air [id number]%. IV site of left fa/ patent, no s/s any infiltration noted. Dialysis access of SIVAKUMAR AV shunt. Skin intact. Personal belongings checked and Belongings List documented. Sides x2, Call light within reach. Cont to monitor pt.
[2022-07-22 22:40] VITALS: BP_SYST 152
[2022-07-22] MEDS: INSULIN LISPRO SLIDING SCALE 100 UNITS/ML, 3 ML VIAL (humaLOG) SUBCUT PRN (23:16)
[2022-07-22 23:18] VITALS: BP_SYST 152
--- NOTE | 2022-07-22 23:36 | NUR ---
NOTES; -Pt stated that he has 1 screw hazmat cdl driver and 8 pc hex win set metric. Confiscated from pt and keeps at Nurses's station from pt for now.
[2022-07-23 01:53] VITALS: BP_SYST 136
--- NOTE | 2022-07-23 01:53 | NUR ---
ROUNDS; -Pt is resting in bed. Pt denies any chest pain,pain,sob, or any acute distress. All safety measures in place. Call light w/n reach, side rails x2. Cont to monitor pt.
--- NOTE | 2022-07-23 03:20 | NUR ---
ROUNDS; -Pt is resting in bed. No s/s any chest pain,pain,sob, or any acute distress noted. Pt's condition stable. All safety measures in place. Call light w/n reach, side rails x2. Cont to monitor pt.
--- NOTE | 2022-07-23 06:39 | NUR ---
CLOSING NOTES; -Pt is resting in bed. No s/s any chest pain,pain,sob, or any acute distress noted. Pt's condition stable. All safety measures in place. Call light w/n reach, side rails x2. Will endorse to next nurse to cont care.
[2022-07-23 07:27] LABS: INR 1.2 (0.80-1.20); PROTHROMBIN TIME 12.1 SECS (9.5-12.5)
[2022-07-23] MEDS: BUDESONIDE 0.5 MG/2 ML AMPUL.NEB INH SCH ×2 (07:27→20:51)
[2022-07-23] MEDS: ALBUTEROL SULFATE 0.083% 2.5 MG/3 ML VIAL.NEB INH SCH ×3 (07:27→20:51)
[2022-07-23 07:30] LABS: CALCIUM 8.2 mg/dL (8.4-11.0); CREATININE 5.81 mg/dL (0.55-1.30)
[2022-07-23 07:33] LABS: ALBUMIN 2.7 g/dL (3.4-4.8); BILIRUBIN,DIRECT 0.3 mg/dL (0.0-0.3); TOTAL BILIRUBIN 0.5 mg/dL (0.0-1.0)
[2022-07-23 08:07] VITALS: BP_SYST 151
[2022-07-23 08:24] LABS: BASOPHILS # (AUTO) 0.1 K/uL (0.0-0.2); BASOPHILS % (AUTO) 1.1 % (0.0-2.0); EOSINOPHILS # (AUTO) 0.2 K/uL (0.0-0.4); EOSINOPHILS % (AUTO) 3.6 % (0.0-4.0); HEMATOCRIT 23.5 % (36-54); HEMOGLOBIN 7.9 g/dL (14.0-18.0); LYMPHOCYTES # (AUTO) 1.2 K/uL (1.0-5.5); LYMPHOCYTES % (AUTO) 17.7 % (20.5-51.5); MEAN CORPUSCULAR HEMOGLOBIN 30 pg (27-31); MEAN CORPUSCULAR HGB CONC 34 % (32-36); MEAN CORPUSCULAR VOLUME 89 fL (79.0-98.0); MONOCYTES # (AUTO) 0.6 K/uL (0.0-1.0); MONOCYTES % (AUTO) 8.7 % (1.7-9.3); NEUTROPHILS # (AUTO) 4.6 K/uL (1.8-7.7); NEUTROPHILS % (AUTO) 68.9 % (40.0-70.0); PLATELET COUNT (AUTO) 210 K/uL (130-430); RED BLOOD CELL COUNT(AUTO) 2.63 MIL/uL (4.2-6.2); RED CELL DISTRIBUTION WIDTH 17.9 % (9.0-15.0); WHITE BLOOD COUNT (AUTO) 6.7 K/uL (4.8-10.8)
[2022-07-23] MEDS: PANTOPRAZOLE SODIUM 40 MG/VIAL (PROTONIX) IVP SCH (08:38)
[2022-07-23] MEDS: MIRTAZAPINE 15 MG TABLET PO SCH (08:39)
[2022-07-23] MEDS: hydrALAZINE HCL 25 MG TABLET PO SCH ×4 (08:40→20:51)
[2022-07-23] MEDS: CARVEDILOL 12.5 MG TABLET (COREG) PO SCH ×2 (08:40→20:51)
[2022-07-23] MEDS ORDERED: MINERAL OIL 30 ML UDC PO ONE (09:45)
[2022-07-23] MEDS ORDERED: SIMETHICONE 80 MG TAB.CHEW PO ONE (09:45)
[2022-07-23] MEDS: INSULIN LISPRO SLIDING SCALE 100 UNITS/ML, 3 ML VIAL (humaLOG) SUBCUT PRN ×2 (11:42→20:56)
[2022-07-23] MEDS: SIMETHICONE 80 MG TAB.CHEW PO SCH ×3 (14:15→20:50)
--- NOTE | 2022-07-23 15:44 | NUR ---
Pt refused dialysis. HD RN made Dr Hollingsworth aware.
[2022-07-23 17:04] VITALS: BP_SYST 138
[2022-07-23] MEDS: MINERAL OIL 30 ML UDC PO SCH ×2 (17:12→20:50)
[2022-07-23 19:57] VITALS: BP_SYST 149
--- NOTE | 2022-07-23 19:57 | NUR ---
PM ASSESSMENT; -Pt is a/ox4, sitting in bed eating dinner. Pt denies chest pain,sob,or any acute distress. IV site of left fa/ patent, no s/s any infiltration noted. Dialysis access of SIVAKUMAR AV shunt. Discussed poc and safety measures, pt verbalized understanding. Urinal is at bedside. Sides x2, Call light within reach. Cont to monitor pt.
[2022-07-24 00:14] VITALS: BP_SYST 132
[2022-07-24] MEDS: ALBUTEROL SULFATE 0.083% 2.5 MG/3 ML VIAL.NEB INH SCH ×4 (01:48→19:00)
[2022-07-24] MEDS: MINERAL OIL 30 ML UDC PO SCH ×4 (05:37→17:01)
--- NOTE | 2022-07-24 05:40 | NUR ---
ROUNDS; -Pt refused to change his bed. Pt stated," I m fine and I don't need to change it." All safety measures in place. Call light w/n reach, side rails x2. Cont to monitor pt
[2022-07-24 07:00] LABS: BASOPHILS # (AUTO) 0.1 K/uL (0.0-0.2); BASOPHILS % (AUTO) 0.9 % (0.0-2.0); EOSINOPHILS # (AUTO) 0.3 K/uL (0.0-0.4); EOSINOPHILS % (AUTO) 3.7 % (0.0-4.0); HEMATOCRIT 22.1 % (36-54); HEMOGLOBIN 7.4 g/dL (14.0-18.0); LYMPHOCYTES # (AUTO) 1.3 K/uL (1.0-5.5); LYMPHOCYTES % (AUTO) 17.8 % (20.5-51.5); MEAN CORPUSCULAR HEMOGLOBIN 30 pg (27-31); MEAN CORPUSCULAR HGB CONC 33 % (32-36); MEAN CORPUSCULAR VOLUME 91 fL (79.0-98.0); MONOCYTES # (AUTO) 0.7 K/uL (0.0-1.0); NEUTROPHILS # (AUTO) 5.1 K/uL (1.8-7.7); NEUTROPHILS % (AUTO) 68.6 % (40.0-70.0); PLATELET COUNT (AUTO) 203 K/uL (130-430); RED BLOOD CELL COUNT(AUTO) 2.44 MIL/uL (4.2-6.2); RED CELL DISTRIBUTION WIDTH 18.4 % (9.0-15.0); WHITE BLOOD COUNT (AUTO) 7.4 K/uL (4.8-10.8)
[2022-07-24] MEDS: BUDESONIDE 0.5 MG/2 ML AMPUL.NEB INH SCH ×2 (07:00→19:00)
[2022-07-24 07:23] LABS: CALCIUM 8.4 mg/dL (8.4-11.0)
[2022-07-24 07:25] LABS: CREATININE 8.37 mg/dL (0.55-1.30)
[2022-07-24 07:42] VITALS: BP_SYST 119; BP_SYST 149
[2022-07-24] MEDS: MIRTAZAPINE 15 MG TABLET PO SCH (08:20)
[2022-07-24] MEDS: SIMETHICONE 80 MG TAB.CHEW PO SCH ×4 (08:20→20:41)
[2022-07-24] MEDS: PANTOPRAZOLE SODIUM 40 MG/VIAL (PROTONIX) IVP SCH (08:21)
--- NOTE | 2022-07-24 08:43 | NUR ---
NEPHRO MD DR MAZA WAS CALLED, RE: CRITICAL CREATININE LEVEL OF 8.37. SPOKE TO ATTILA
[2022-07-24] MEDS: hydrALAZINE HCL 25 MG TABLET PO SCH ×3 (09:00→20:43)
[2022-07-24] MEDS: CARVEDILOL 12.5 MG TABLET (COREG) PO SCH ×2 (09:00→20:42)
--- NOTE | 2022-07-24 09:30 | NUR ---
DR MAZA WAS CALLED EARLIER RE CRIT LEVEL OF CREATININE. SAID ASKED PT IF HE WILL ACCEPT DIALYSIS TODAY AND IF HE WILL PT WILL HAVE HD TODAY AND TOMORROW. INFORMED PT AND PT AGREED TO HAVE HD TODAY AND TOMORROW. AWARE THAT PT IS WILLING TO HAVE HD TODAY AND TOMORROW. SAID SHE WILL CALL THE DIALYSIS NURSE.
--- NOTE | 2022-07-24 10:21 | NUR ---
BP MEDS HELD DUET PT IS GOING TO HAVE DIALYSIS.
[2022-07-24] MEDS: INSULIN LISPRO SLIDING SCALE 100 UNITS/ML, 3 ML VIAL (humaLOG) SUBCUT PRN ×2 (12:16→20:45)
[2022-07-24 12:22] VITALS: BP_SYST 129
[2022-07-24 12:31] LABS: FERRITIN 498 ng/mL (30-400)
[2022-07-24] MEDS: POLYETHYLENE GLYCOL 3350, 17 GM/ POWD.PACK PO ONE ×2 (14:03→14:07)
--- NOTE | 2022-07-24 14:13 | NUR ---
I SPOKE WITH DAJA (HD RN) TOLD HER THAT I SPOKE WITH DR MAZA THIS AM AND SAID SHE IS GOING TO CALL HER TO ORDER HD. DAJA SAID SHE IS GOING TO CALL DR MAZA.
--- NOTE | 2022-07-24 14:19 | NUR ---
RECEIVED CALL FROM DR SHAUNNA MD SAID MR CONROY SAID SHE FEELS FINE SO HD WILL BE DONE TOMORRO ( NO EXTRA HD TODAY).
[2022-07-24 14:56] VITALS: BP_SYST 156
[2022-07-24] MEDS ORDERED: BISACODYL 5 MG TABLET.DR (DULCOLAX) PO ONE (17:00)
--- NOTE | 2022-07-24 19:47 | NUR ---
EGD COLONOSCOPY PREP STARTED, PT HAD 5X BM WITH SOME PINKISH TINGED STOOL. PT STILL NEEDS ADDDITIONAL PREP TONIGHT AND PT NEEDS TAP WATER ENEMA IN AM. CONSENT FOR BOTH NEEDED. ENDORSED TO NIGHT NURSE .
[2022-07-24 20:00] VITALS: BP_SYST 127
--- NOTE | 2022-07-24 20:00 | NUR ---
INITIAL NOTES: PT IS AWAKE , C/O ITCHING ALL OVER ,NOTICED PTS SKIN IS VERY DRY ,PROVIDED TOWELS ,WASH CLOTHS, SOAP,BODY LOTION, WARM WATER AND NEW GOWN, PT ABLE TO CLEAN HIMSELF ;BLANKETS CHANGED ;AFTER CLEANING PT STATED HE IS FEELING BETTER . PLAN OF CAR DISCUSSED ; VITALS ARE STABLE ; ENCOURAGED PT TO CALL FOR ANY ASSIST.BED IN LOW AND LOCK POSITION , CALL PORTILLO IN REACH .BSC AVAILABLE AT BEDSIDE .
[2022-07-24] MEDS ORDERED: POLYETHYLENE GLYCOL 3350, 17 GM/ POWD.PACK PO SCH (21:00)
--- NOTE | 2022-07-24 22:15 | NUR ---
PT STATED HE HAD 2 BM LOOSE , ITS BURGUNDY IN COLOR . REQUESTED PT TO USE BSC SO RN CAN EVALUATE.
[2022-07-24] MEDS: SACUBITRIL/VALSARTAN 24 MG-26 MG 1 TABLET PO SCH (22:30)
[2022-07-25] MEDS: MINERAL OIL 30 ML UDC PO SCH ×4 (00:01→17:26)
--- NOTE | 2022-07-25 00:01 | NUR ---
PT HAD ANOTHER LOOSE BM , NOTICED ITS DARK BURGUNDY COLOR .REMINDED PT ABOUT THE NPO STATUS . REMOVED WATER FROM BED SIDE .
[2022-07-25 00:05] VITALS: BP_SYST 130
[2022-07-25] MEDS: ALBUTEROL SULFATE 0.083% 2.5 MG/3 ML VIAL.NEB INH SCH ×3 (01:00→13:17)
--- NOTE | 2022-07-25 05:30 | NUR ---
TAP WATER ENEMA GIVEN , PT IS CLEAR WITH SOME BLOOD TINGED . PT IS COMFORTABLE .
[2022-07-25] MEDS: BUDESONIDE 0.5 MG/2 ML AMPUL.NEB INH SCH (07:00)
--- NOTE | 2022-07-25 07:00 | NUR ---
PT SIGNED THE CONSENT FOR EGD AND COLONOSCOPY, NO QUESTIONS AT THIS TIME, PT STATED HE HAD THE SAME PROCEDURE LAST MONTH .
--- NOTE | 2022-07-25 07:15 | NUR ---
OPENING NOTE RECEIVED SBAR FROM NIGHT RN. PATIENT NOT IN BED, LEFT FOR ZACKARY SCAN
--- NOTE | 2022-07-25 07:15 | NUR ---
CLOSING NOTES: REPORT GIVEN TO RN AT BEDSIDE . PT IS SLEEPING , NPO .NO S/S OF ANY ACUTE DISTRESS NOTICED ; ALL NEEDS ATTENDED .
--- NOTE | 2022-07-25 07:20 | NUR ---
OPENING NOTE RECEIVED SBAR FROM NIGHT RN. PATIENT IN BED,RESPIRATIONS EVEN, NON LABORED, BED IN LOW AND LOCKED POSITION, CALL LIGHT WITHIN REACH.
[2022-07-25 07:23] LABS: BASOPHILS # (AUTO) 0.1 K/uL (0.0-0.2); BASOPHILS % (AUTO) 0.8 % (0.0-2.0); CALCIUM 8.3 mg/dL (8.4-11.0); EOSINOPHILS # (AUTO) 0.3 K/uL (0.0-0.4); EOSINOPHILS % (AUTO) 3.5 % (0.0-4.0); HEMOGLOBIN 7.2 g/dL (14.0-18.0); LYMPHOCYTES # (AUTO) 1.3 K/uL (1.0-5.5); LYMPHOCYTES % (AUTO) 18.6 % (20.5-51.5); MEAN CORPUSCULAR HEMOGLOBIN 30 pg (27-31); MEAN CORPUSCULAR HGB CONC 33 % (32-36); MEAN CORPUSCULAR VOLUME 90 fL (79.0-98.0); MONOCYTES # (AUTO) 0.7 K/uL (0.0-1.0); MONOCYTES % (AUTO) 9.1 % (1.7-9.3); NEUTROPHILS # (AUTO) 4.9 K/uL (1.8-7.7); PLATELET COUNT (AUTO) 226 K/uL (130-430); RED BLOOD CELL COUNT(AUTO) 2.41 MIL/uL (4.2-6.2); RED CELL DISTRIBUTION WIDTH 17.8 % (9.0-15.0); WHITE BLOOD COUNT (AUTO) 7.2 K/uL (4.8-10.8)
[2022-07-25 07:51] LABS: CREATININE 9.68 mg/dL (0.55-1.30)
--- NOTE | 2022-07-25 07:52 | NUR ---
CRITICAL RECEIVED CRITICAL CREATININE OF 9.68. INFORMED DR GUY OF RESULTS, HE WILL SEE PATIENT. PER DR GUY HOLD ALL BP MEDICATIONS FOR THIS AM
[2022-07-25 08:00] VITALS: BP_SYST 122
--- NOTE | 2022-07-25 08:10 | NUR ---
MD DR HERNANDEZ BEDSIDE EXAMINING PATIENT, PER DR HERNANDEZ IF PATIENT IS CLEARED BY GI CALL DR HERNANDEZ FOR DC INSTRUCTIONS
--- NOTE | 2022-07-25 08:17 | NUR ---
CRITICAL RECEIVED CRITICAL H/H 7.[address] HERNANDEZ ON THE FLOOR, NO NEW ORDERS
[2022-07-25 08:18] LABS: HEMATOCRIT 21.8 % (36-54)
[2022-07-25] MEDS: hydrALAZINE HCL 25 MG TABLET PO SCH ×2 (08:51→14:53)
[2022-07-25] MEDS: MIRTAZAPINE 15 MG TABLET PO SCH (08:52)
[2022-07-25] MEDS: SIMETHICONE 80 MG TAB.CHEW PO SCH ×3 (08:52→17:18)
[2022-07-25] MEDS: SACUBITRIL/VALSARTAN 24 MG-26 MG 1 TABLET PO SCH (08:52)
[2022-07-25] MEDS: CARVEDILOL 12.5 MG TABLET (COREG) PO SCH (08:52)
[2022-07-25] MEDS: PANTOPRAZOLE SODIUM 40 MG/VIAL (PROTONIX) IVP SCH (09:05)
--- NOTE | 2022-07-25 11:06 | NUR ---
IV IV BECAME DISLODGED. CATHETER INTACT. ACTIVE BLEEDING. COVERED WITH GAUZE, BLEEDING CONTROLLED. CHANGED LINENS. GI CAME TO BEHAVIORAL THERAPY COORDINATOR PATIENT FOR PROCEDURE. THEY WILL PLACE NEW IV.
[2022-07-25] MEDS ORDERED: MEPERIDINE HCL/PF 25 MG/ML DISP.SYRIN ONE (11:15)
[2022-07-25] MEDS ORDERED: MIDAZOLAM HCL 5 MG/5 ML VIAL ONE ×2 (11:16→11:34)
--- NOTE | 2022-07-25 12:46 | NUR ---
RETURNED FROM GI RECIEVED REPORT FROM RN. PATIENT IN BED, RESPIRATIONS EVEN, NON LABORED, BED IN LOW AND LOCKED POSITION, CALL LIGHT WITHIN REACH. BED ALARM ON. PATIENT REFUSED TELE MONITOR. AND REFUSED VS. WILL ATTEMPT AGAIN
--- NOTE | 2022-07-25 13:22 | NUR ---
NURSE NOTE ATTACHED TO TELE MONITOR. PATIENT CONTINUES TO REFUSE VS. IS RECEIVING A BREATHING TREATMENT. O2 IS 97% AND HEART RATE IS 74 AND RESPIRATION RATE IS 16.
--- NOTE | 2022-07-25 14:59 | NUR ---
PAGED DR HERNANDEZ REGARDING RESULTS OF GI PROCEDURES.
--- NOTE | 2022-07-25 15:01 | NUR ---
INFORMED DR HERNANDEZ OF GI RESULTS. DR HERNANDEZ WILL TALK WITH DR GUY REGARDING DIALYSIS BEFORE DISCHARGING
[2022-07-25] MEDS ORDERED: PRO40 PO (15:49)
[2022-07-25 16:00] VITALS: BP_SYST 132
[2022-07-25 17:35] VITALS: BP_SYST 115
--- NOTE | 2022-07-25 17:42 | NUR ---
FAMILY SPOKE WITH PATIENTS CHARLEE WEST. SHE WILL SPECTROGRAPHER PATIENT AT 1900 FOR DISCHARGE HOME
--- NOTE | 2022-07-25 19:10 | NUR ---
D/C Patient Patient given medication reconciliation form and D/C instructions. Exit Care provided. Patient verbalized understanding. MD discussed with patient the results and treatment provided. Ambulatory with steady gait for discharge to home. Patient in stable condition, ID band removed. IV catheter removed, intact and dressing applied, no active bleeding. All belongings sent with patient.
[2022-07-26 03:06] LABS: HEPATITIS A AB, IgM Negative (Negative); HEPATITIS B CORE AB, IgM Negative (Negative); HEPATITIS B SURFACE AG Negative (Negative)
== END 2022-07-25 19:10 | disposition home or self-care (01) | DRG 254 ==
LOC: SED 13:19 → STU 16:21
PROVIDERS: ADMIT Family Medicine; ATTEND Family Medicine
PROC: 30233N1 Transfusion of Nonautologous Red Blood Cells into Peripheral Vein, Percutaneous Approach (ICD-10-PCS; principal; 2022-07-21)
PROC: 5A1D70Z Performance of Urinary Filtration, Intermittent, Less than 6 Hours Per Day (ICD-10-PCS; 2022-07-23)
PROC: 0DBM8ZZ Excision of Descending Colon, Via Natural or Artificial Opening Endoscopic (ICD-10-PCS; 2022-07-25)
PROC: 5A1D70Z Performance of Urinary Filtration, Intermittent, Less than 6 Hours Per Day (ICD-10-PCS; 2022-07-25)
PROC: 0DB78ZX Excision of Stomach, Pylorus, Via Natural or Artificial Opening Endoscopic, Diagnostic (ICD-10-PCS; 2022-07-25 13:00)
PROC: 0DBL8ZX Excision of Transverse Colon, Via Natural or Artificial Opening Endoscopic, Diagnostic (ICD-10-PCS; 2022-07-25 13:00)
DX: K63.5 Polyp of colon (principal); N17.0 Acute kidney failure with tubular necrosis; I13.2 Hypertensive heart and chronic kidney disease with heart failure and with stage 5 chronic kidney disease, or end stage renal disease; E43 Unspecified severe protein-calorie malnutrition; E83.51 Hypocalcemia; E83.41 Hypermagnesemia; D63.1 Anemia in chronic kidney disease; K64.8 Other hemorrhoids; K29.00 Acute gastritis without bleeding; K29.50 Unspecified chronic gastritis without bleeding; I42.0 Dilated cardiomyopathy; K64.4 Residual hemorrhoidal skin tags; E11.22 Type 2 diabetes mellitus with diabetic chronic kidney disease; N18.6 End stage renal disease; D50.0 Iron deficiency anemia secondary to blood loss (chronic); K74.60 Unspecified cirrhosis of liver; I50.9 Heart failure, unspecified; Z20.822 Contact with and (suspected) exposure to COVID-19; I34.0 Nonrheumatic mitral (valve) insufficiency; I36.1 Nonrheumatic tricuspid (valve) insufficiency; S36.60XA Unspecified injury of rectum, initial encounter; X58.XXXA Exposure to other specified factors, initial encounter; Z99.2 Dependence on renal dialysis; Z91.14 Patient's other noncompliance with medication regimen; Z91.119 Patient's noncompliance with dietary regimen due to unspecified reason; Z90.49 Acquired absence of other specified parts of digestive tract; Z87.891 Personal history of nicotine dependence; Z79.899 Other long term (current) drug therapy; Z79.4 Long term (current) use of insulin; Z79.02 Long term (current) use of antithrombotics/antiplatelets; Y93.89 Activity, other specified; Y92.89 Other specified places as the place of occurrence of the external cause; Y99.8 Other external cause status
CPT/HCPCS: 36415; 43239; 45380; 45385; 71045; 76700-TC; 80048; 80053; 80061; 80074; 80076; 82728; 82962; 83036; 83540; 83550; 83735; 83880; 84484; 85025; 85610-TC; 85730-TC; 86886; 86900; 86901; 86920; 87081; 88305; 88312; 88313; 93005; 94640; 94760; 99285; C9113; G0378; J2175; J2250; J2270; J2405; J7613; J7626; P9021

== ENCOUNTER 2022-07-31 07:45 | Inpatient (IN) | payer MEDICAID ==
[2022-07-31] VITALS (9 sets, daily range): BP systolic 125–201
[~2022-07-31] VITALS: Ht 165.1 cm; Wt 75.7 kg
[~2022-07-31 07:45] MED LIST changes: +ALBMDI INH; +ALBU2.5V7 INH; +BUDE6HFA INH; +CARV12.548 PO; +CLOP75TA32 PO; +HYDR-4038 PO; -IBUP-1971 PO; +ISOS20TA8 PO; +MIRT-114 PO; +NITSL SL; +PRO40 PO
[2022-07-31] MEDS ORDERED: PANTOPRAZOLE SODIUM 40 MG/VIAL (PROTONIX) IVP ONE (08:00)
[2022-07-31 08:21] LABS: BASOPHILS # (AUTO) 0.1 K/uL (0.0-0.2); BASOPHILS % (AUTO) 0.8 % (0.0-2.0); EOSINOPHILS # (AUTO) 0.1 K/uL (0.0-0.4); EOSINOPHILS % (AUTO) 1.5 % (0.0-4.0); LYMPHOCYTES # (AUTO) 2.1 K/uL (1.0-5.5); LYMPHOCYTES % (AUTO) 21.1 % (20.5-51.5); MEAN CORPUSCULAR HEMOGLOBIN 30 pg (27-31); MEAN CORPUSCULAR HGB CONC 33 % (32-36); MEAN CORPUSCULAR VOLUME 92 fL (79.0-98.0); MONOCYTES # (AUTO) 0.8 K/uL (0.0-1.0); MONOCYTES % (AUTO) 7.9 % (1.7-9.3); NEUTROPHILS # (AUTO) 6.8 K/uL (1.8-7.7); NEUTROPHILS % (AUTO) 68.7 % (40.0-70.0); PLATELET COUNT (AUTO) 221 K/uL (130-430); RED BLOOD CELL COUNT(AUTO) 2.03 MIL/uL (4.2-6.2); RED CELL DISTRIBUTION WIDTH 17.1 % (9.0-15.0); WHITE BLOOD COUNT (AUTO) 9.9 K/uL (4.8-10.8)
[2022-07-31 08:30] LABS: CALCIUM 8.1 mg/dL (8.4-11.0)
[2022-07-31 08:38] LABS: ALBUMIN 2.8 g/dL (3.4-4.8); TOTAL BILIRUBIN 0.4 mg/dL (0.0-1.0)
[2022-07-31 08:39] LABS: HEMATOCRIT 18.6 % (36-54); HEMOGLOBIN 6.2 g/dL (14.0-18.0)
[2022-07-31 08:46] LABS: CREATININE 12.36 mg/dL (0.55-1.30)
[2022-07-31] MEDS ORDERED: MORPHINE 4 MG INJ. 4 MG/ML VIAL IVP ONE (09:15)
[2022-07-31] MEDS ORDERED: LORazepam 2 MG/ML VIAL IVP ONE (10:30)
[2022-07-31] MEDS ORDERED: ALBUMIN HUMAN 25% 200 ML IV ONE (12:00)
[2022-07-31 12:03] LABS: BASOPHILS # (AUTO) 0.1 K/uL (0.0-0.2); BASOPHILS % (AUTO) 0.9 % (0.0-2.0); EOSINOPHILS # (AUTO) 0.1 K/uL (0.0-0.4); EOSINOPHILS % (AUTO) 1.2 % (0.0-4.0); LYMPHOCYTES # (AUTO) 2.3 K/uL (1.0-5.5); LYMPHOCYTES % (AUTO) 23.6 % (20.5-51.5); MEAN CORPUSCULAR HEMOGLOBIN 30 pg (27-31); MEAN CORPUSCULAR HGB CONC 32 % (32-36); MEAN CORPUSCULAR VOLUME 93 fL (79.0-98.0); MONOCYTES # (AUTO) 0.7 K/uL (0.0-1.0); MONOCYTES % (AUTO) 6.8 % (1.7-9.3); NEUTROPHILS # (AUTO) 6.6 K/uL (1.8-7.7); NEUTROPHILS % (AUTO) 67.5 % (40.0-70.0); PLATELET COUNT (AUTO) 236 K/uL (130-430); RED BLOOD CELL COUNT(AUTO) 2.12 MIL/uL (4.2-6.2); RED CELL DISTRIBUTION WIDTH 17.5 % (9.0-15.0); WHITE BLOOD COUNT (AUTO) 9.8 K/uL (4.8-10.8)
[2022-07-31 12:11] LABS: HEMATOCRIT 19.8 % (36-54); HEMOGLOBIN 6.4 g/dL (14.0-18.0)
[2022-07-31] MEDS ORDERED: DOPamine PREMIX 250 ML IV ONE (12:23)
[2022-07-31] MEDS ORDERED: DOPamine PREMIX 250 ML IV PRN (12:30)
[2022-07-31] MEDS ORDERED: SODIUM BICARBONATE 8.4% JECT 50 MEQ/50 ML SYRINGE IVP ONE (14:00)
[2022-07-31] MEDS ORDERED: CALCIUM GLUCONATE 1 GM/10 ML VIAL IVP ONE (14:00)
[2022-07-31] MEDS: LORazepam 2 MG/ML VIAL IVP PRN (17:15)
[2022-07-31] MEDS ORDERED: hydrALAZINE HCL 20 MG/ML VIAL IVP ONE (23:15)
[2022-07-31] MEDS: PANTOPRAZOLE SODIUM 40 MG/VIAL (PROTONIX) IVP SCH (23:34)
[2022-08-01] VITALS (18 sets, daily range): BP systolic 119–164
[2022-08-01] MEDS ORDERED: hydrALAZINE HCL 20 MG/ML VIAL IVP PRN (01:15)
[2022-08-01 06:17] LABS: MEAN CORPUSCULAR HEMOGLOBIN 30 pg (27-31); MEAN CORPUSCULAR HGB CONC 34 % (32-36); MEAN CORPUSCULAR VOLUME 89 fL (79.0-98.0); PLATELET COUNT (AUTO) 188 K/uL (130-430); RED BLOOD CELL COUNT(AUTO) 2.32 MIL/uL (4.2-6.2); RED CELL DISTRIBUTION WIDTH 16.1 % (9.0-15.0); WHITE BLOOD COUNT (AUTO) 7.7 K/uL (4.8-10.8)
[2022-08-01] MEDS: hydrALAZINE HCL 25 MG TABLET PO SCH ×3 (06:17→22:00)
[2022-08-01] MEDS: MORPHINE 2 MG/ML INJ. SYRINGE IVP PRN ×4 (06:40→22:18)
[2022-08-01 07:01] LABS: ALBUMIN 2.5 g/dL (3.4-4.8); CALCIUM 7.7 mg/dL (8.4-11.0); PHOSPHORUS 5.5 mg/dL (2.7-4.5); TOTAL BILIRUBIN 0.7 mg/dL (0.0-1.0)
[2022-08-01 08:50] LABS: CREATININE 8.39 mg/dL (0.55-1.30)
[2022-08-01] MEDS: PANTOPRAZOLE SODIUM 40 MG/VIAL (PROTONIX) IVP SCH ×2 (09:24→22:16)
[2022-08-01] MEDS: CARVEDILOL 12.5 MG TABLET (COREG) PO SCH ×2 (09:24→21:00)
[2022-08-01 09:26] LABS: HEMATOCRIT 20.7 % (36-54)
[2022-08-01 11:51] LABS: BASOPHILS % (MANUAL) 0 % (0-2); EOSINOPHILS % (MANUAL) 0 % (0-7); LYMPHOCYTES % (MANUAL) 12 % (20-46); MONOCYTES % (MANUAL) 10 % (0-11)
[2022-08-01] MEDS: DIPHENHYDRAMINE INJ 50 MG/ML VIAL IVP PRN ×2 (14:57→22:16)
[2022-08-02] VITALS: BP_SYST 141
[2022-08-02] MEDS: hydrALAZINE HCL 25 MG TABLET PO SCH ×3 (06:28→21:26)
[2022-08-02] MEDS: DIPHENHYDRAMINE INJ 50 MG/ML VIAL IVP PRN ×3 (06:31→23:17)
[2022-08-02] MEDS: MORPHINE 2 MG/ML INJ. SYRINGE IVP PRN ×3 (06:32→23:17)
[2022-08-02 08:00] VITALS: BP_SYST 155
[2022-08-02 08:09] LABS: BASOPHILS # (AUTO) 0.1 K/uL (0.0-0.2); BASOPHILS % (AUTO) 0.7 % (0.0-2.0); EOSINOPHILS # (AUTO) 0.2 K/uL (0.0-0.4); EOSINOPHILS % (AUTO) 2.6 % (0.0-4.0); HEMATOCRIT 25.2 % (36-54); HEMOGLOBIN 8.5 g/dL (14.0-18.0); LYMPHOCYTES # (AUTO) 1.1 K/uL (1.0-5.5); MEAN CORPUSCULAR HEMOGLOBIN 30 pg (27-31); MEAN CORPUSCULAR HGB CONC 34 % (32-36); MEAN CORPUSCULAR VOLUME 88 fL (79.0-98.0); MONOCYTES # (AUTO) 0.8 K/uL (0.0-1.0); MONOCYTES % (AUTO) 11.8 % (1.7-9.3); NEUTROPHILS # (AUTO) 4.8 K/uL (1.8-7.7); NEUTROPHILS % (AUTO) 68.9 % (40.0-70.0); PLATELET COUNT (AUTO) 210 K/uL (130-430); RED BLOOD CELL COUNT(AUTO) 2.87 MIL/uL (4.2-6.2); RED CELL DISTRIBUTION WIDTH 17.5 % (9.0-15.0)
[2022-08-02] MEDS: PANTOPRAZOLE SODIUM 40 MG/VIAL (PROTONIX) IVP SCH ×2 (08:10→23:17)
[2022-08-02] MEDS: CARVEDILOL 12.5 MG TABLET (COREG) PO SCH ×2 (08:11→20:28)
[2022-08-02 11:20] VITALS: BP_SYST 91
[2022-08-02] MEDS: MUPIROCIN 2% TOPICAL OINTMENT 22 GM NS SCH ×2 (13:01→20:29)
[2022-08-02 15:49] VITALS: BP_SYST 140
[2022-08-02] MEDS: LORazepam 2 MG/ML VIAL IVP PRN (16:07)
[2022-08-02] MEDS ORDERED: SEVELAMER CARBONATE 800 MG TABLET PO ONE (19:45)
[2022-08-02 20:00] VITALS: BP_SYST 158
[2022-08-02 22:39] VITALS: BP_SYST 156
[2022-08-03] VITALS: BP_SYST 153
[2022-08-03] MEDS: DIPHENHYDRAMINE INJ 50 MG/ML VIAL IVP PRN ×4 (05:41→23:04)
[2022-08-03] MEDS: MORPHINE 2 MG/ML INJ. SYRINGE IVP PRN ×4 (05:42→23:16)
[2022-08-03] MEDS: hydrALAZINE HCL 25 MG TABLET PO SCH ×3 (05:47→20:59)
[2022-08-03 06:10] LABS: BASOPHILS % (AUTO) 0.8 % (0.0-2.0); EOSINOPHILS # (AUTO) 0.2 K/uL (0.0-0.4); EOSINOPHILS % (AUTO) 3.8 % (0.0-4.0); HEMATOCRIT 28.4 % (36-54); HEMOGLOBIN 9.5 g/dL (14.0-18.0); LYMPHOCYTES # (AUTO) 1.1 K/uL (1.0-5.5); LYMPHOCYTES % (AUTO) 18.7 % (20.5-51.5); MEAN CORPUSCULAR HEMOGLOBIN 29 pg (27-31); MEAN CORPUSCULAR HGB CONC 33 % (32-36); MEAN CORPUSCULAR VOLUME 88 fL (79.0-98.0); MONOCYTES # (AUTO) 0.7 K/uL (0.0-1.0); MONOCYTES % (AUTO) 11.2 % (1.7-9.3); NEUTROPHILS # (AUTO) 3.9 K/uL (1.8-7.7); NEUTROPHILS % (AUTO) 65.5 % (40.0-70.0); PLATELET COUNT (AUTO) 239 K/uL (130-430); RED BLOOD CELL COUNT(AUTO) 3.21 MIL/uL (4.2-6.2); RED CELL DISTRIBUTION WIDTH 17.3 % (9.0-15.0)
[2022-08-03 06:13] LABS: CALCIUM 8.1 mg/dL (8.4-11.0)
[2022-08-03 06:56] LABS: CREATININE 8.06 mg/dL (0.55-1.30)
[2022-08-03 08:00] VITALS: BP_SYST 152
[2022-08-03] MEDS: PANTOPRAZOLE SODIUM 40 MG/VIAL (PROTONIX) IVP SCH ×2 (08:48→20:48)
[2022-08-03] MEDS: CARVEDILOL 12.5 MG TABLET (COREG) PO SCH ×2 (08:49→20:48)
[2022-08-03] MEDS: SEVELAMER CARBONATE 800 MG TABLET PO SCH ×3 (08:49→17:57)
[2022-08-03] MEDS: MUPIROCIN 2% TOPICAL OINTMENT 22 GM NS SCH ×2 (08:50→21:09)
[2022-08-03 12:00] VITALS: BP_SYST 145
[2022-08-03 16:00] VITALS: BP_SYST 137
[2022-08-03 20:00] VITALS: BP_SYST 133
[2022-08-03 23:21] VITALS: BP_SYST 141
[2022-08-04] MEDS: hydrALAZINE HCL 25 MG TABLET PO SCH ×2 (06:26→15:12)
[2022-08-04 06:30] VITALS: BP_SYST 155
[2022-08-04] MEDS: DIPHENHYDRAMINE INJ 50 MG/ML VIAL IVP PRN ×2 (06:31→12:18)
[2022-08-04] MEDS: MORPHINE 2 MG/ML INJ. SYRINGE IVP PRN ×2 (06:33→12:18)
[2022-08-04 07:18] LABS: BASOPHILS % (AUTO) 0.8 % (0.0-2.0); EOSINOPHILS # (AUTO) 0.3 K/uL (0.0-0.4); EOSINOPHILS % (AUTO) 5.7 % (0.0-4.0); HEMATOCRIT 26.7 % (36-54); HEMOGLOBIN 8.9 g/dL (14.0-18.0); LYMPHOCYTES # (AUTO) 1.2 K/uL (1.0-5.5); LYMPHOCYTES % (AUTO) 20.8 % (20.5-51.5); MEAN CORPUSCULAR HEMOGLOBIN 30 pg (27-31); MEAN CORPUSCULAR HGB CONC 33 % (32-36); MEAN CORPUSCULAR VOLUME 90 fL (79.0-98.0); MONOCYTES # (AUTO) 0.6 K/uL (0.0-1.0); NEUTROPHILS # (AUTO) 3.6 K/uL (1.8-7.7); NEUTROPHILS % (AUTO) 61.7 % (40.0-70.0); PLATELET COUNT (AUTO) 207 K/uL (130-430); RED BLOOD CELL COUNT(AUTO) 2.98 MIL/uL (4.2-6.2); RED CELL DISTRIBUTION WIDTH 17.4 % (9.0-15.0); WHITE BLOOD COUNT (AUTO) 5.9 K/uL (4.8-10.8)
[2022-08-04 08:00] VITALS: BP_SYST 150
[2022-08-04] MEDS: SEVELAMER CARBONATE 800 MG TABLET PO SCH ×3 (08:14→18:00)
[2022-08-04] MEDS: PANTOPRAZOLE SODIUM 40 MG/VIAL (PROTONIX) IVP SCH (08:14)
[2022-08-04] MEDS: MUPIROCIN 2% TOPICAL OINTMENT 22 GM NS SCH (08:31)
[2022-08-04] MEDS: CARVEDILOL 12.5 MG TABLET (COREG) PO SCH (08:33)
[2022-08-04 12:00] VITALS: BP_SYST 159
[2022-08-04 15:23] VITALS: BP_SYST 158
[2022-08-04 16:00] VITALS: BP_SYST 158
[2022-08-05] MEDS ORDERED: EPOETIN ALFA 10,000 UNITS/ML VIAL SUBCUT SCH (17:00)
== END 2022-08-04 18:00 | disposition home or self-care (01) | DRG 241 ==
LOC: SED 07:45 → STU 09:48 → SIC 11:54 → STU 08-01 22:00
PROVIDERS: ADMIT Internal Medicine; ATTEND Internal Medicine
PROC: 30233N1 Transfusion of Nonautologous Red Blood Cells into Peripheral Vein, Percutaneous Approach (ICD-10-PCS; principal; 2022-07-31)
PROC: 5A1D70Z Performance of Urinary Filtration, Intermittent, Less than 6 Hours Per Day (ICD-10-PCS; 2022-07-31)
PROC: 05HY33Z Insertion of Infusion Device into Upper Vein, Percutaneous Approach (ICD-10-PCS; 2022-07-31)
PROC: B54MZZA Ultrasonography of Right Upper Extremity Veins, Guidance (ICD-10-PCS; 2022-07-31)
PROC: 5A1D70Z Performance of Urinary Filtration, Intermittent, Less than 6 Hours Per Day (ICD-10-PCS; 2022-08-01)
PROC: 05HY33Z Insertion of Infusion Device into Upper Vein, Percutaneous Approach (ICD-10-PCS; 2022-08-02)
PROC: B54MZZA Ultrasonography of Right Upper Extremity Veins, Guidance (ICD-10-PCS; 2022-08-02)
PROC: 5A1D70Z Performance of Urinary Filtration, Intermittent, Less than 6 Hours Per Day (ICD-10-PCS; 2022-08-03)
DX: K29.01 Acute gastritis with bleeding (principal); I12.0 Hypertensive chronic kidney disease with stage 5 chronic kidney disease or end stage renal disease; E43 Unspecified severe protein-calorie malnutrition; R64 Cachexia; N18.6 End stage renal disease; D62 Acute posthemorrhagic anemia; E83.39 Other disorders of phosphorus metabolism; E11.22 Type 2 diabetes mellitus with diabetic chronic kidney disease; E87.5 Hyperkalemia; I25.10 Atherosclerotic heart disease of native coronary artery without angina pectoris; Z20.822 Contact with and (suspected) exposure to COVID-19; Z79.899 Other long term (current) drug therapy; Z87.19 Personal history of other diseases of the digestive system; Z99.2 Dependence on renal dialysis; Z68.27 Body mass index [BMI] 27.0-27.9, adult
CPT/HCPCS: 36415; 71045; 78278-TC; 80048; 80053; 84100; 85007; 85025; 85027; 86886; 86900; 86901; 86920; 87081; 90937; 93005; 96374; 96375; 99285; C9113; G0378; J0360; J0610; J1200; J1265; J2060; J2270; P9021

== ENCOUNTER 2022-11-06 22:07 | Emergency (ER) | payer MEDICAID ==
[~2022-11-06] VITALS: Ht 165.1 cm; Wt 74.8 kg
[2022-11-06 22:10] VITALS: BP_SYST 168
--- NOTE | 2022-11-06 22:12 | NUR ---
Patient to bed 4
--- NOTE | 2022-11-06 22:30 | NUR ---
Patient resting in bed, A/Ox4, chest rise and fall symmetrical, no s/s of distress, on monitor. ER physician verbally informed of patient's pain and cheif complaint. ER physician verbalized understanding, no new orders.
--- NOTE | 2022-11-06 23:30 | NUR ---
Patient resting in bed, A/Ox4, chest rise and fall symmetrical, no s/s of distress, on monitor. ER physician verbally informed of patient's pain and cheif complaint. ER physician verbalized understanding and stated that she will be ordering pain medication. Addendum: 11/07/22 at 0140 by [email or web address] Patient resting in bed, A/Ox4, chest rise and fall symmetrical, no s/s of distress, on monitor. ER physician verbally informed of patient's pain and cheif complaint. ER physician verbalized understanding and stated that he will be ordering pain medication.
[2022-11-06] MEDS ORDERED: ONDANSETRON HCL 4 MG/2 ML VIAL IVP ONE (23:45)
[2022-11-06] MEDS ORDERED: NACL 0.9% 1,000 ML IV ONE (23:45)
[2022-11-06] MEDS ORDERED: MORPHINE 4 MG INJ. 4 MG/ML VIAL IVP ONE (23:45)
--- NOTE | 2022-11-07 00:28 | NUR ---
Patient verbalized pain lowered to 2/10, right flank pain. Patient stated acceptable pain level is "3/10 or less."
--- NOTE | 2022-11-07 01:39 | NUR ---
Note keanu in EDM - 11/07/22 at 0140 by [email or web address] Patient resting in bed, A/Ox4, chest rise and fall symmetrical, no s/s of distress, on monitor. ER physician verbally informed of patient's pain and cheif complaint. ER physician verbalized understanding and stated that he will be ordering pain medication.
--- NOTE | 2022-11-07 01:40 | NUR ---
Patient resting in bed, A/Ox4, chest rise and fall symmetrical, no s/s of distress, on monitor. ER physician verbally informed of patient's c/o pain and cheif complaint. ER physician verbalized understanding and stated that he will be ordering pain medication.
[2022-11-07] MEDS ORDERED: LORazepam 2 MG/ML VIAL IVP ONE (01:45)
[2022-11-07] MEDS ORDERED: MORPHINE 2 MG/ML INJ. SYRINGE IVP ONE (01:45)
--- NOTE | 2022-11-07 04:00 | NUR ---
Patient resting in bed, A/Ox4, chest rise and fall symmetrical, no s/s of distress, on monitor. ER physician verbally informed of patient's c/o pain and cheif complaint. ER physician verbalized understanding and stated that he will speak to patient.
--- NOTE | 2022-11-07 04:32 | NUR ---
ER physician, Dr. Villarreal speaking with patient.
--- NOTE | 2022-11-07 05:10 | NUR ---
Patient educated on use of abdominal binder and incentive spirometer, per Dr. Villarreal's verbal orders. Abdominal binder applied to patient's abdomen and insentive spirometer given to patient. Patient verbalized understanding of education, no further questions.
--- NOTE | 2022-11-07 05:15 | NUR ---
Patient resting in bed, A/Ox4, chest rise and fall symmetrical, no c/o pain or s/s of distress, on monitor.
[2022-11-07] MEDS ORDERED: ACET12.55 PO ×2 (05:31→05:55)
[2022-11-07] MEDS ORDERED: AUG875 PO (05:55)
[2022-11-07] MEDS ORDERED: LIDO-19 CONT SU071 (05:55)
[2022-11-07 06:00] VITALS: BP_SYST 128
--- NOTE | 2022-11-07 06:03 | NUR ---
Patient given written and verbal discharge instructions and verbalizes understanding. ER MD discussed with patient the results and treatment provided. Patient in stable condition. ID arm band removed. IV catheter removed intact and dressing applied, no active bleeding. Rx given to patient. Patient educated on pain management and to follow up with PMD. Pain Scale 0/10 with abdominal binder applied. Opportunity for questions provided and answered. Medication side effect fact sheet provided.
== END 2022-11-07 06:03 | disposition home or self-care (01) ==
LOC: SED 22:07
DX: S20.211A Contusion of right front wall of thorax, initial encounter (principal); E11.9 Type 2 diabetes mellitus without complications; I10 Essential (primary) hypertension; Z79.899 Other long term (current) drug therapy; V00.838A Other accident with motorized mobility scooter, initial encounter; Y93.89 Activity, other specified; Y92.89 Other specified places as the place of occurrence of the external cause; Y99.8 Other external cause status
CPT/HCPCS: 99285; 96374; 71045; 96361; 96375 ×2; 71260; 76376; 74177; 96376; J2405; J2270 ×2; J7030; J2060; Q9967

== ENCOUNTER 2023-01-11 23:04 | Inpatient (IN) | payer MEDICAID ==
[~2023-01-11] VITALS: Ht 165.1 cm; Wt 75.3 kg
[~2023-01-11 23:04] MED LIST changes: +ACET12.55 PO; +AUG875 PO; +LIDO-19 CONT SU071
[2023-01-11 23:12] VITALS: BP_SYST 146; PULSE 87; RESP 20; TEMP 98.1; O2SAT 98
--- NOTE | 2023-01-11 23:13 | NUR ---
ER at bedside examining patient.
--- NOTE | 2023-01-11 23:30 | NUR ---
Patient to ER bed to gown for evaluation. Side rails up. Report given to AMBROSIO.
[2023-01-11] MEDS ORDERED: ASPIRIN 325 MG TABLET PO ONE (23:45)
[2023-01-12 00:09] LABS: BASOPHILS % (AUTO) 0.6 % (0.0-2.0); EOSINOPHILS # (AUTO) 0.1 K/uL (0.0-0.4); EOSINOPHILS % (AUTO) 1.2 % (0.0-4.0); HEMOGLOBIN 7.1 g/dL (14.0-18.0); MEAN CORPUSCULAR HEMOGLOBIN 30 pg (27-31); MEAN CORPUSCULAR HGB CONC 33 % (32-36); MEAN CORPUSCULAR VOLUME 92 fL (79.0-98.0); MONOCYTES # (AUTO) 0.6 K/uL (0.0-1.0); NEUTROPHILS # (AUTO) 5.3 K/uL (1.8-7.7); NEUTROPHILS % (AUTO) 75.2 % (40.0-70.0); PLATELET COUNT (AUTO) 236 K/uL (130-430); RED BLOOD CELL COUNT(AUTO) 2.34 MIL/uL (4.2-6.2)
[2023-01-12 00:20] LABS: ANION GAP 11 (5-15); CALCIUM 8.5 mg/dL (8.4-11.0); CHLORIDE 98 mmol/L (98-107); CREATININE 5.41 mg/dL (0.55-1.30); GFR AFRICAN AMERICAN 14 mL/min (>90); GLUCOSE 164 mg/dL (74-106); UREA NITROGEN, BLOOD 22 mg/dL (8-21)
[2023-01-12 00:31] LABS: HEMATOCRIT 21.7 % (36-54)
[2023-01-12 00:39] LABS: ALANINE AMINOTRANSFERASE 7 U/L (12-78); ALBUMIN 3.1 g/dL (3.4-4.8); ASPARTATE AMINOTRANSFERASE 13 U/L (10-37); TOTAL BILIRUBIN 0.4 mg/dL (0.0-1.0)
--- NOTE | 2023-01-12 00:52 | NUR ---
PT CC BLOOD IN STOOL X4 DAYS SUBSTERNAL CHEST PAIN X 3 DAYS SOB ON EXERTION. 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
[2023-01-12] MEDS ORDERED: D5/0.45 NS 1,000 ML IV ONE (01:45)
[2023-01-12] MEDS ORDERED: LORazepam 1 MG TABLET PO PRN (01:45)
--- NOTE | 2023-01-12 03:40 | NUR ---
PT EYES CLOSED VSS. NAD SAFETY RAILS UP NO PT CHANGES.
--- NOTE | 2023-01-12 05:31 | NUR ---
Admit bed requested Patient will be admitted to care of . Admitted to TELE unit. Diagnosis GI BLEED AND ACS Inpatient (Yes or No) Y Observation (Yes or No) N Orientation concerns or request close to nursing station (Yes or No) N Covid Status N/A On vent or bipap N Isolation requirements N Needs a sitter N From Home (Yes or if No enter name of facility) Y Requires Dialysis (Yes or No) Y Med Rec Completed (Yes of No) Y
--- NOTE | 2023-01-12 05:35 | NUR ---
Pt gurvinder will bring Med Rec in AM.
--- NOTE | 2023-01-12 05:38 | NUR ---
oxygen campus security officer added. Pt desats to 88 percent.
[2023-01-12 05:49] LABS: BASOPHILS # (AUTO) 0.1 K/uL (0.0-0.2); BASOPHILS % (AUTO) 1.1 % (0.0-2.0); EOSINOPHILS # (AUTO) 0.1 K/uL (0.0-0.4); EOSINOPHILS % (AUTO) 1.7 % (0.0-4.0); LYMPHOCYTES # (AUTO) 1.4 K/uL (1.0-5.5); LYMPHOCYTES % (AUTO) 20.9 % (20.5-51.5); MEAN CORPUSCULAR HEMOGLOBIN 30 pg (27-31); MEAN CORPUSCULAR HGB CONC 33 % (32-36); MEAN CORPUSCULAR VOLUME 92 fL (79.0-98.0); MONOCYTES # (AUTO) 0.6 K/uL (0.0-1.0); MONOCYTES % (AUTO) 9.7 % (1.7-9.3); NEUTROPHILS # (AUTO) 4.3 K/uL (1.8-7.7); NEUTROPHILS % (AUTO) 66.6 % (40.0-70.0); PLATELET COUNT (AUTO) 221 K/uL (130-430); RED BLOOD CELL COUNT(AUTO) 2.22 MIL/uL (4.2-6.2); RED CELL DISTRIBUTION WIDTH 18.9 % (9.0-15.0); WHITE BLOOD COUNT (AUTO) 6.5 K/uL (4.8-10.8)
[2023-01-12 05:58] LABS: HEMATOCRIT 20.3 % (36-54); HEMOGLOBIN 6.7 g/dL (14.0-18.0)
--- NOTE | 2023-01-12 06:20 | NUR ---
CONSULTATION PAGED/CALLED Reason for Consultation: [] gi bleed Person Who was Notified: [] LENORA Consulting Physician: [] DR KIM GLEZ Environment Coordinator Specialty: [] GI Ordering Physician: [] DR NIEVES
[2023-01-12 06:22] LABS: ALBUMIN 2.9 g/dL (3.4-4.8); CALCIUM 8.6 mg/dL (8.4-11.0); CREATININE 5.77 mg/dL (0.55-1.30); THYROID STIMULATING HORMONE 1.92 uIu/mL (0.34-4.82); TOTAL BILIRUBIN 0.4 mg/dL (0.0-1.0)
--- NOTE | 2023-01-12 06:22 | NUR ---
CONSULTATION PAGED/CALLED Reason for Consultation: [] ACS Person Who was Notified: [] LENORA Consulting Physician: [] DR ZELAYA Mapping Analyst Specialty: [] CARDIO Ordering Physician: [] DR NIEVES
--- NOTE | 2023-01-12 06:37 | NUR ---
ADMISSION NOTE Received patient from ER via gurney. Patient admitted with diagnosis of GI BLEED/ACS. Patient is awake, alert, oriented X 4. Patient oriented to hospital room, call light, toileting, pain management and safety-teach back done. Patient informed that their room number is 100A. Personal belongings checked and Belongings List documented. Call light within reach.
--- NOTE | 2023-01-12 06:45 | NUR ---
Patient will be admitted to care of DR NIEVES. Admitted to TELE unit. Will go to room 100A. Belongings list completed. Complete and up to date summary report printed. SBAR report to HEALTH EVALUATOR be given at bedside with opportunity for questions.
--- NOTE | 2023-01-12 06:45 | NUR ---
SPOKE W/ DR NIEVES Notified of critical lab hgb 6.7 and hematocrit 20.3. Ordered 2 units PRBCs
[2023-01-12 06:47] VITALS: BP_SYST 135; PULSE 80; RESP 18
[2023-01-12] MEDS ORDERED: ALBUTEROL SULFATE 0.083% 2.5 MG/3 ML VIAL.NEB INH PRN (07:15)
[2023-01-12] MEDS ORDERED: NITROGLYCERIN 0.4 MG TAB.SUBL SL PRN (07:15)
[2023-01-12] MEDS ORDERED: ACETAMINOPHEN WITH CODEINE 12.5 ML UDC PO PRN (07:15)
[2023-01-12 08:41] VITALS: BP_SYST 137; PULSE 71; RESP 18; TEMP 97; O2SAT 96
[2023-01-12] MEDS ORDERED: PANTOPRAZOLE SODIUM 40 MG/VIAL (PROTONIX) IVP SCH (09:00)
[2023-01-12 09:08] VITALS: BP_SYST 137; PULSE 71; O2SAT 96
[2023-01-12] MEDS ORDERED: fentaNYL CITRATE/PF 100 MCG/2 ML AMP ONE (09:16)
[2023-01-12] MEDS ORDERED: MIDAZOLAM HCL 5 MG/5 ML VIAL ONE (09:16)
[2023-01-12] MEDS ORDERED: BENZOCAINE 20% 0.5mL UD SPRAY MM ONE (09:17)
[2023-01-12] MEDS ORDERED: SIMETHICONE 40 MG/0.6 ML ML ONE (09:17)
[2023-01-12] MEDS: PANTOPRAZOLE SODIUM 40 MG/VIAL (PROTONIX) IVP SCH ×2 (12:20→21:39)
[2023-01-12] MEDS: hydrALAZINE HCL 25 MG TABLET PO SCH ×3 (12:21→21:38)
[2023-01-12] MEDS: CARVEDILOL 12.5 MG TABLET (COREG) PO SCH ×2 (12:22→21:39)
[2023-01-12] MEDS: MIRTAZAPINE 15 MG TABLET PO SCH (12:22)
[2023-01-12] MEDS: ISOSORBIDE DINITRATE 20 MG TABLET (ISORDIL) PO SCH ×3 (12:22→21:38)
[2023-01-12 13:25] VITALS: O2SAT 99
[2023-01-12] MEDS: ALBUTEROL SULFATE 0.083% 2.5 MG/3 ML VIAL.NEB INH SCH ×2 (13:26→21:03)
--- NOTE | 2023-01-12 15:30 | NUR ---
PATIENT A/O X4, VERBALLY RESPONSIVE AND ABLE TO MAKE NEEDS KNOWN, REFUSED EGD. GI DOCTOR ORDERED THE ACUTE GI BLEEDING SCAN. RECEIVED A CALL FROM [facility] THAT THEY WILL DO THE TEST IN THE AFTERNOON @ AROUND 2 PM. PATIENT'S SCHEDULE DIALYSIS ARE M/W/F. WILL ASK HD NURSE TO DIALYZE PATIENT IN THE MORNING TO ACCOMMODATE FOR HIS 2PM PROCEDURE. HD NURSE, DAJA MADE AWARE. INFORMED PATIENT THE PLAN OF CARE FOR TOMORROW.
--- NOTE | 2023-01-12 17:42 | NUR ---
ENDORSED TO NOC SHIFT RN ABOUT THE PLAN OF CARE. NURSE MADE AWARE THAT SHE WOULD CALL THE DOCTOR FOR HD ORDER AND PRINT THE ORDER AND GIVE IT THE HOUSE SUP. HD NURSE MADE AWARE THAT PATIENT'S SET UP APPOINTMENT FOR ACUTE GI BLEEDING SCAN TOMORROW IN THE AFTERNOON AT AROUND 2 PM.
[2023-01-12 19:45] VITALS: O2SAT 99
[2023-01-12 20:00] VITALS: BP_SYST 146; PULSE 78; RESP 20; TEMP 98.3; O2SAT 98
[2023-01-12] MEDS: BUDESONIDE 0.5 MG/2 ML AMPUL.NEB INH SCH (21:03)
[2023-01-13] VITALS: BP_SYST 142; PULSE 71; RESP 18; TEMP 98.5; O2SAT 95
[2023-01-13] MEDS: ALBUTEROL SULFATE 0.083% 2.5 MG/3 ML VIAL.NEB INH SCH ×2 (01:14→07:59)
[2023-01-13 04:00] VITALS: BP_SYST 147; PULSE 69; RESP 18; TEMP 97.4; O2SAT 96
[2023-01-13 05:22] LABS: BASOPHILS # (AUTO) 0.1 K/uL (0.0-0.2); BASOPHILS % (AUTO) 0.9 % (0.0-2.0); EOSINOPHILS # (AUTO) 0.1 K/uL (0.0-0.4); EOSINOPHILS % (AUTO) 1.8 % (0.0-4.0); HEMATOCRIT 24.3 % (36-54); LYMPHOCYTES # (AUTO) 1.2 K/uL (1.0-5.5); LYMPHOCYTES % (AUTO) 17.3 % (20.5-51.5); MEAN CORPUSCULAR HEMOGLOBIN 29 pg (27-31); MEAN CORPUSCULAR HGB CONC 33 % (32-36); MEAN CORPUSCULAR VOLUME 89 fL (79.0-98.0); MONOCYTES # (AUTO) 0.5 K/uL (0.0-1.0); MONOCYTES % (AUTO) 7.9 % (1.7-9.3); NEUTROPHILS # (AUTO) 4.8 K/uL (1.8-7.7); NEUTROPHILS % (AUTO) 72.1 % (40.0-70.0); PLATELET COUNT (AUTO) 211 K/uL (130-430); RED BLOOD CELL COUNT(AUTO) 2.74 MIL/uL (4.2-6.2); RED CELL DISTRIBUTION WIDTH 18.5 % (9.0-15.0); WHITE BLOOD COUNT (AUTO) 6.7 K/uL (4.8-10.8)
[2023-01-13 05:42] LABS: ALBUMIN 2.6 g/dL (3.4-4.8); CREATININE 7.36 mg/dL (0.55-1.30); TOTAL BILIRUBIN 0.6 mg/dL (0.0-1.0)
[2023-01-13 06:05] LABS: INR 1.3 (0.80-1.20); PROTHROMBIN TIME 13.2 SECS (9.5-12.5)
--- NOTE | 2023-01-13 07:00 | NUR ---
Report received from cloth stock sorter RN for continuity of care. Patient in stable condition.
[2023-01-13 07:10] VITALS: O2SAT 98
[2023-01-13] MEDS: BUDESONIDE 0.5 MG/2 ML AMPUL.NEB INH SCH (07:59)
[2023-01-13 08:00] VITALS: BP_SYST 145; PULSE 74; RESP 20; TEMP 98.2; O2SAT 97
[2023-01-13] MEDS: MIRTAZAPINE 15 MG TABLET PO SCH ×2 (08:08→11:50)
[2023-01-13] MEDS: CARVEDILOL 12.5 MG TABLET (COREG) PO SCH ×2 (08:08→11:51)
[2023-01-13] MEDS: ISOSORBIDE DINITRATE 20 MG TABLET (ISORDIL) PO SCH ×3 (08:08→11:51)
[2023-01-13] MEDS: hydrALAZINE HCL 25 MG TABLET PO SCH ×3 (08:08→11:50)
[2023-01-13] MEDS: PANTOPRAZOLE SODIUM 40 MG/VIAL (PROTONIX) IVP SCH (08:10)
--- NOTE | 2023-01-13 10:13 | NUR ---
Spoke with Dr. Luna regarding RLS for patient because his legs moving around. Patient said he takes [facility] for RLS. New orders noted and carried out.
[2023-01-13] MEDS ORDERED: roPINIRole HCL 0.25 MG ( REQUIP )TABLET PO SCH ×2 (10:15→21:00)
--- NOTE | 2023-01-13 11:07 | NUR ---
HD in progress.
--- NOTE | 2023-01-13 11:46 | NUR ---
Dialysis finished. About 1.2 L out. BP 160/75. Patient stable at the moment. Addendum: 01/13/23 at 1148 by Tesfaye Soriano RN RN 2.8 L out
[2023-01-13 12:00] VITALS: BP_SYST 160; PULSE 80; RESP 20; TEMP 98; O2SAT 96
--- NOTE | 2023-01-13 12:31 | NUR ---
Patient threw tray food against the wall shouting, "I cant take this shit anymore. I am going home!" Hospital staff came to see how patient is and patient appeared agitated, taking off heart monitor. Spoke with Patient's family member Char about the situation and she tried talking to patient and patient said "Why you calling family, man? Get me the fuck out of here!" AMA form providedfor patient. Dr. Luna made aware of situation.
--- NOTE | 2023-01-13 12:41 | NUR ---
Dr. Luna made aware of situation and patient signing out AMA.
[2023-01-13 12:42] VITALS: BP_SYST 140; PULSE 84; RESP 20; TEMP 98.2; O2SAT 97
== END 2023-01-13 12:50 | disposition left against medical advice (07) | DRG 190 ==
LOC: SED 23:04 → STU 01-12 01:32
PROVIDERS: ADMIT Internal Medicine; ATTEND Internal Medicine
PROC: 30233N1 Transfusion of Nonautologous Red Blood Cells into Peripheral Vein, Percutaneous Approach (ICD-10-PCS; principal; 2023-01-12)
PROC: 5A1D70Z Performance of Urinary Filtration, Intermittent, Less than 6 Hours Per Day (ICD-10-PCS; 2023-01-13)
DX: I21.4 Non-ST elevation (NSTEMI) myocardial infarction (principal); I13.2 Hypertensive heart and chronic kidney disease with heart failure and with stage 5 chronic kidney disease, or end stage renal disease; I42.0 Dilated cardiomyopathy; D63.1 Anemia in chronic kidney disease; D62 Acute posthemorrhagic anemia; N18.6 End stage renal disease; K92.2 Gastrointestinal hemorrhage, unspecified; E11.22 Type 2 diabetes mellitus with diabetic chronic kidney disease; I50.9 Heart failure, unspecified; J44.9 Chronic obstructive pulmonary disease, unspecified; F10.10 Alcohol abuse, uncomplicated; Y90.9 Presence of alcohol in blood, level not specified; F17.210 Nicotine dependence, cigarettes, uncomplicated; K74.60 Unspecified cirrhosis of liver; I25.10 Atherosclerotic heart disease of native coronary artery without angina pectoris; Z79.899 Other long term (current) drug therapy; Z87.19 Personal history of other diseases of the digestive system; Z99.2 Dependence on renal dialysis
CPT/HCPCS: 36415; 71045; 80053; 80061; 83690; 83735; 83880; 84443; 84484; 85025; 85610-TC; 86886; 86900; 86901; 86920; 87081; 90935; 93005; 93306; 94640; 94760; 99285; C9113; G0378; J2250; J3010; J7050; J7613; J7626; P9021

== ENCOUNTER 2023-01-23 11:22 | Inpatient (IN) | payer MEDICAID ==
[~2023-01-23] VITALS: Ht 162.6 cm; Wt 63.5 kg
[2023-01-23 11:37] VITALS: BP_SYST 148; PULSE 86; RESP 22; TEMP 98.5; O2SAT 95; O2SAT 98
[2023-01-23 12:05] LABS: BASOPHILS # (AUTO) 0.1 K/uL (0.0-0.2); BASOPHILS % (AUTO) 0.9 % (0.0-2.0); EOSINOPHILS % (AUTO) 0.6 % (0.0-4.0); HEMATOCRIT 26.9 % (36-54); HEMOGLOBIN 8.7 g/dL (14.0-18.0); LYMPHOCYTES % (AUTO) 13.7 % (20.5-51.5); MEAN CORPUSCULAR HEMOGLOBIN 29 pg (27-31); MEAN CORPUSCULAR HGB CONC 32 % (32-36); MEAN CORPUSCULAR VOLUME 90 fL (79.0-98.0); MONOCYTES # (AUTO) 0.6 K/uL (0.0-1.0); MONOCYTES % (AUTO) 7.9 % (1.7-9.3); NEUTROPHILS # (AUTO) 5.5 K/uL (1.8-7.7); NEUTROPHILS % (AUTO) 76.9 % (40.0-70.0); PLATELET COUNT (AUTO) 189 K/uL (130-430); RED CELL DISTRIBUTION WIDTH 17.6 % (9.0-15.0); WHITE BLOOD COUNT (AUTO) 7.2 K/uL (4.8-10.8)
[2023-01-23] MEDS ORDERED: METOCLOPRAMIDE HCL 10 MG/2 ML VIAL IVP ONE (12:15)
[2023-01-23 12:25] LABS: ALBUMIN 3.1 g/dL (3.4-4.8); CALCIUM 8.3 mg/dL (8.4-11.0); TOTAL BILIRUBIN 0.7 mg/dL (0.0-1.0)
[2023-01-23 12:30] LABS: CREATININE 9.81 mg/dL (0.55-1.30)
[2023-01-23] MEDS ORDERED: iohexoL 350 mgI/mL, 100 ML INFUS..BTL IV ONE (13:38)
[2023-01-23] MEDS ORDERED: METOCLOPRAMIDE HCL 10 MG/2 ML VIAL ONE (14:31)
[2023-01-23] MEDS ORDERED: PIPERACILLIN/TAZOBACTAM 3.375 GM/VIAL (ZOSYN) IV ONE (14:38)
[2023-01-23] MEDS ORDERED: PIPERACILLIN/TAZO 3.375 GM in NS 50 ML IV ONE (14:45)
[2023-01-23] MEDS ORDERED: POTASSIUM CHLORIDE 20 MEQ TAB.PRT.SR PO PRN (15:00)
[2023-01-23] MEDS ORDERED: MORPHINE 2 MG/ML INJ. SYRINGE IVP PRN ×2 (15:00)
[2023-01-23] MEDS ORDERED: IPRATROPIUM/ALBUTEROL SULFATE 3 ML AMPUL.NEB (DUONEB) INH PRN (15:00)
[2023-01-23] MEDS ORDERED: LORazepam 2 MG/ML VIAL IVP PRN (15:00)
[2023-01-23] MEDS ORDERED: ACETAMINOPHEN 325 MG TABLET PO PRN ×2 (15:00→15:15)
[2023-01-23] MEDS ORDERED: MUPIROCIN 2% TOPICAL OINTMENT 22 GM NS PRN (15:00)
[2023-01-23] MEDS ORDERED: MAGNESIUM SULFATE 50 ML IV PRN (15:00)
[2023-01-23] MEDS ORDERED: ZOLPIDEM TARTRATE 5 MG TABLET PO PRN (15:00)
[2023-01-23] MEDS ORDERED: ONDANSETRON HCL 4 MG/2 ML VIAL IVP PRN (15:00)
[2023-01-23] MEDS ORDERED: DOCUSATE SODIUM 100 MG CAPSULE PO PRN (15:00)
[2023-01-23] MEDS ORDERED: DEXTROSE 50% JECT 50 ML DISP.SYRIN IVP PRN (15:00)
[2023-01-23 15:23] VITALS: PULSE 85; O2SAT 96
[2023-01-23 17:41] VITALS: BP_SYST 167; PULSE 84; RESP 20; TEMP 98.6
[2023-01-23] MEDS: BUDESONIDE 0.5 MG/2 ML AMPUL.NEB INH SCH (19:00)
[2023-01-23 20:00] VITALS: BP_SYST 153; PULSE 87; RESP 18; TEMP 98.7
[2023-01-23 20:15] VITALS: O2SAT 99
[2023-01-23] MEDS: CARVEDILOL 12.5 MG TABLET (COREG) PO SCH (20:50)
[2023-01-23] MEDS: ISOSORBIDE DINITRATE 20 MG TABLET (ISORDIL) PO SCH (20:50)
[2023-01-23] MEDS: hydrALAZINE HCL 25 MG TABLET PO SCH (20:50)
[2023-01-23] MEDS: INSULIN LISPRO SLIDING SCALE 100 UNITS/ML, 3 ML VIAL (humaLOG) SUBCUT PRN (20:54)
[2023-01-24 00:13] VITALS: BP_SYST 136; PULSE 83; RESP 22; TEMP 97.8; O2SAT 99
[2023-01-24 05:17] LABS: BASOPHILS # (AUTO) 0.1 K/uL (0.0-0.2); EOSINOPHILS # (AUTO) 0.1 K/uL (0.0-0.4); HEMATOCRIT 24.8 % (36-54); HEMOGLOBIN 8.1 g/dL (14.0-18.0); LYMPHOCYTES % (AUTO) 16.9 % (20.5-51.5); MEAN CORPUSCULAR HEMOGLOBIN 29 pg (27-31); MEAN CORPUSCULAR HGB CONC 33 % (32-36); MEAN CORPUSCULAR VOLUME 90 fL (79.0-98.0); MONOCYTES # (AUTO) 0.7 K/uL (0.0-1.0); MONOCYTES % (AUTO) 11.1 % (1.7-9.3); NEUTROPHILS # (AUTO) 4.2 K/uL (1.8-7.7); PLATELET COUNT (AUTO) 169 K/uL (130-430); RED BLOOD CELL COUNT(AUTO) 2.76 MIL/uL (4.2-6.2); RED CELL DISTRIBUTION WIDTH 17.7 % (9.0-15.0); WHITE BLOOD COUNT (AUTO) 6.1 K/uL (4.8-10.8)
[2023-01-24 05:56] LABS: CALCIUM 7.5 mg/dL (8.4-11.0)
[2023-01-24 06:06] LABS: CREATININE 10.64 mg/dL (0.55-1.30)
[2023-01-24 08:07] VITALS: BP_SYST 156; PULSE 72; RESP 12; TEMP 97.8; O2SAT 100
[2023-01-24] MEDS: hydrALAZINE HCL 25 MG TABLET PO SCH ×3 (09:00→20:18)
[2023-01-24] MEDS: CARVEDILOL 12.5 MG TABLET (COREG) PO SCH ×2 (09:00→20:19)
[2023-01-24] MEDS: ISOSORBIDE DINITRATE 20 MG TABLET (ISORDIL) PO SCH ×3 (09:00→20:18)
[2023-01-24] MEDS: CLOPIDOGREL BISULFATE 75 MG TABLET PO SCH (09:04)
[2023-01-24] MEDS: PANTOPRAZOLE SODIUM 40 MG TAB PO SCH (09:05)
[2023-01-24 11:32] VITALS: BP_SYST 101; PULSE 68; RESP 17; TEMP 98; O2SAT 95
[2023-01-24 16:33] VITALS: BP_SYST 131; PULSE 75; RESP 16; TEMP 98; O2SAT 96
[2023-01-24] MEDS: PIPERACILLIN/TAZO 2.25G/DEX-IS 50 ML IV SCH ×2 (18:14→23:49)
[2023-01-24 20:00] VITALS: BP_SYST 152; PULSE 80; RESP 18; TEMP 98; O2SAT 99
[2023-01-24 20:31] VITALS: O2SAT 99
[2023-01-24] MEDS: BUDESONIDE 0.5 MG/2 ML AMPUL.NEB INH SCH (20:31)
[2023-01-24] MEDS: INSULIN LISPRO SLIDING SCALE 100 UNITS/ML, 3 ML VIAL (humaLOG) SUBCUT PRN (20:34)
[2023-01-24] MEDS ORDERED: MIRTAZAPINE 15 MG TABLET PO SCH (21:00)
[2023-01-24] MEDS ORDERED: DIPHENOXYLATE HCL/ATROP SULF 2.5 MG TAB PO ONE (21:45)
[2023-01-25] VITALS: BP_SYST 147; PULSE 79; RESP 18; TEMP 98.6; O2SAT 100
[2023-01-25 04:00] VITALS: BP_SYST 152; PULSE 88; RESP 18; TEMP 98.3; O2SAT 97
[2023-01-25 06:44] LABS: BASOPHILS # (AUTO) 0.1 K/uL (0.0-0.2); BASOPHILS % (AUTO) 1.2 % (0.0-2.0); EOSINOPHILS # (AUTO) 0.2 K/uL (0.0-0.4); EOSINOPHILS % (AUTO) 3.1 % (0.0-4.0); HEMATOCRIT 24.2 % (36-54); LYMPHOCYTES # (AUTO) 0.9 K/uL (1.0-5.5); LYMPHOCYTES % (AUTO) 18.4 % (20.5-51.5); MEAN CORPUSCULAR HEMOGLOBIN 29 pg (27-31); MEAN CORPUSCULAR HGB CONC 33 % (32-36); MEAN CORPUSCULAR VOLUME 89 fL (79.0-98.0); MONOCYTES # (AUTO) 0.6 K/uL (0.0-1.0); MONOCYTES % (AUTO) 12.2 % (1.7-9.3); NEUTROPHILS # (AUTO) 3.1 K/uL (1.8-7.7); NEUTROPHILS % (AUTO) 65.1 % (40.0-70.0); PLATELET COUNT (AUTO) 170 K/uL (130-430); RED BLOOD CELL COUNT(AUTO) 2.73 MIL/uL (4.2-6.2); RED CELL DISTRIBUTION WIDTH 17.6 % (9.0-15.0); WHITE BLOOD COUNT (AUTO) 4.8 K/uL (4.8-10.8)
[2023-01-25] MEDS: PIPERACILLIN/TAZO 2.25G/DEX-IS 50 ML IV SCH ×2 (06:50→11:46)
[2023-01-25] MEDS: INSULIN LISPRO SLIDING SCALE 100 UNITS/ML, 3 ML VIAL (humaLOG) SUBCUT PRN (06:58)
[2023-01-25 07:07] LABS: CALCIUM 7.6 mg/dL (8.4-11.0)
[2023-01-25 07:18] LABS: CREATININE 8.14 mg/dL (0.55-1.30)
[2023-01-25 07:46] VITALS: O2SAT 98
[2023-01-25] MEDS: BUDESONIDE 0.5 MG/2 ML AMPUL.NEB INH SCH (07:46)
[2023-01-25 08:19] VITALS: BP_SYST 153; PULSE 73; RESP 16; TEMP 97.6; O2SAT 99
[2023-01-25] MEDS ORDERED: LEVO250T73 PO (09:03)
[2023-01-25] MEDS: CLOPIDOGREL BISULFATE 75 MG TABLET PO SCH (09:40)
[2023-01-25] MEDS: ISOSORBIDE DINITRATE 20 MG TABLET (ISORDIL) PO SCH (09:40)
[2023-01-25] MEDS: hydrALAZINE HCL 25 MG TABLET PO SCH (09:40)
[2023-01-25] MEDS: PANTOPRAZOLE SODIUM 40 MG TAB PO SCH (09:40)
[2023-01-25] MEDS: CARVEDILOL 12.5 MG TABLET (COREG) PO SCH (09:41)
[2023-01-25 11:17] VITALS: BP_SYST 120; PULSE 92; RESP 15; TEMP 99; O2SAT 95
== END 2023-01-25 11:55 | disposition home or self-care (01) | DRG 145 ==
LOC: SED 11:22 → SMU 14:57
PROVIDERS: ADMIT General Practice; ATTEND General Practice
PROC: 5A1D70Z Performance of Urinary Filtration, Intermittent, Less than 6 Hours Per Day (ICD-10-PCS; principal; 2023-01-23)
PROC: 5A1D70Z Performance of Urinary Filtration, Intermittent, Less than 6 Hours Per Day (ICD-10-PCS; 2023-01-24)
PROC: 5A1D70Z Performance of Urinary Filtration, Intermittent, Less than 6 Hours Per Day (ICD-10-PCS; 2023-01-25)
DX: J20.9 Acute bronchitis, unspecified (principal); N17.9 Acute kidney failure, unspecified; E44.1 Mild protein-calorie malnutrition; E87.1 Hypo-osmolality and hyponatremia; I12.0 Hypertensive chronic kidney disease with stage 5 chronic kidney disease or end stage renal disease; D63.8 Anemia in other chronic diseases classified elsewhere; N18.6 End stage renal disease; E11.22 Type 2 diabetes mellitus with diabetic chronic kidney disease; Z99.2 Dependence on renal dialysis; I25.10 Atherosclerotic heart disease of native coronary artery without angina pectoris; R09.02 Hypoxemia; F17.210 Nicotine dependence, cigarettes, uncomplicated; Z68.24 Body mass index [BMI] 24.0-24.9, adult
CPT/HCPCS: 36415; 36600; 71045; 71275; 76376; 80048; 80053; 82803; 82962; 83037; 83605; 83735; 85025; 85379; 87040; 87081; 90935; 93005; 94640; 94760; 96365; 96367; 96375; 99285; J1956; J2060; J2543; J2765; J7030; J7060; J7626; Q9967

== ENCOUNTER 2023-05-14 01:41 | Inpatient (IN) | payer MEDICAID ==
[~2023-05-14] VITALS: Ht 165.1 cm; Wt 63.5 kg
[2023-05-14] VITALS (8 sets, daily range): BP systolic 142–166; PULSE 55–88; RESP 16–20; TEMP 96.9–98.9; O2SAT 88–100
[2023-05-14 01:38] LABS: BASOPHILS % (AUTO) 0.2 % (0.0-2.0); EOSINOPHILS % (AUTO) 0.5 % (0.0-4.0); HEMATOCRIT 29.2 % (36-54); HEMOGLOBIN 9.2 g/dL (14.0-18.0); MEAN CORPUSCULAR HEMOGLOBIN 28 pg (27-31); MEAN CORPUSCULAR HGB CONC 32 % (32-36); MEAN CORPUSCULAR VOLUME 88 fL (79.0-98.0); MONOCYTES % (AUTO) 5.3 % (1.7-9.3); NEUTROPHILS % (AUTO) 86.9 % (40.0-70.0); PLATELET COUNT (AUTO) 379 K/uL (130-430); RED BLOOD CELL COUNT(AUTO) 3.33 MIL/uL (4.2-6.2); RED CELL DISTRIBUTION WIDTH 19.6 % (9.0-15.0); WHITE BLOOD COUNT (AUTO) 11.5 K/uL (4.8-10.8)
[~2023-05-14 01:41] MED LIST changes: -ACET12.55 PO; -ALBMDI INH; -ALBU2.5V7 INH; -AUG875 PO; -BUDE6HFA INH; +CALC667C4 PO; -DICL20GE TP; -LIDO-19 CONT SU071; +MECL-292 PO; -MIRT-114 PO; +MIRT-147 PO; +MIRT-91 PO; +PANT40TA45 PO; +PREG25CA19 PO; +ROPI0.2535 PO; +VIS10 PO
[2023-05-14 02:07] LABS: ALANINE AMINOTRANSFERASE 19 U/L (12-78); ALBUMIN 2.7 g/dL (3.4-4.8); ANION GAP 18 (5-15); ASPARTATE AMINOTRANSFERASE 32 U/L (10-37); CARBON DIOXIDE 17 mmol/L (23-29); CHLORIDE 103 mmol/L (98-107); GFR AFRICAN AMERICAN 5 mL/min (>90); GLUCOSE 163 mg/dL (74-106); POTASSIUM 5.4 mmol/L (3.5-5.1); SODIUM SERUM 138 mmol/L (136-145); TOTAL BILIRUBIN 0.4 mg/dL (0.0-1.0); TOTAL PROTEIN, SERUM 7.5 g/dL (6.4-8.3)
[2023-05-14 02:09] LABS: ALCOHOL, BLOOD < 3 mg/dL (<10); GFR NON AFRICAN-AMERICAN 4 mL/min (>90)
[2023-05-14 02:11] LABS: CREATININE 14.49 mg/dL (0.55-1.30); UREA NITROGEN, BLOOD 105 mg/dL (8-21)
[2023-05-14] MEDS ORDERED: cloNIDine HCL 0.1 MG TABLET PO PRN (17:30)
[2023-05-14] MEDS ORDERED: INSULIN LISPRO SLIDING SCALE 100 UNITS/ML, 3 ML VIAL (humaLOG) SUBCUT PRN (18:30)
[2023-05-14] MEDS ORDERED: NITROGLYCERIN 0.4 MG TAB.SUBL SL PRN (18:30)
[2023-05-14] MEDS ORDERED: MIRTAZAPINE 15 MG TABLET PO SCH (21:00)
[2023-05-14] MEDS ORDERED: roPINIRole HCL 0.25 MG ( REQUIP )TABLET PO SCH (21:00)
[2023-05-14] MEDS: hydrALAZINE HCL 25 MG TABLET PO SCH (22:15)
[2023-05-14] MEDS: CARVEDILOL 12.5 MG TABLET (COREG) PO SCH (22:16)
[2023-05-14] MEDS: ISOSORBIDE DINITRATE 20 MG TABLET (ISORDIL) PO SCH (22:16)
[2023-05-14] MEDS: CALCIUM ACETATE 667 MG CAP PO SCH (22:17)
[2023-05-14] MEDS: PANTOPRAZOLE SODIUM 40 MG TAB PO SCH (22:21)
[2023-05-15 00:13] VITALS: BP_SYST 144; PULSE 86; RESP 19; TEMP 99.1; O2SAT 99
[2023-05-15 08:00] VITALS: BP_SYST 137; PULSE 110; RESP 20; TEMP 97.4; O2SAT 96
[2023-05-15 08:05] LABS: CALCIUM 7.4 mg/dL (8.4-11.0); POTASSIUM 4.3 mmol/L (3.5-5.1)
[2023-05-15 08:09] LABS: CREATININE 10.88 mg/dL (0.55-1.30)
[2023-05-15] MEDS ORDERED: CLOPIDOGREL BISULFATE 75 MG TABLET PO SCH (09:00)
[2023-05-15] MEDS: CARVEDILOL 12.5 MG TABLET (COREG) PO SCH (09:00)
[2023-05-15] MEDS ORDERED: PANTOPRAZOLE SODIUM 40 MG TAB PO SCH (09:00)
[2023-05-15 10:33] VITALS: O2SAT 96
[2023-05-15 11:24] VITALS: BP_SYST 91; PULSE 71; RESP 16; TEMP 97.1; O2SAT 96
[2023-05-15] MEDS: hydrALAZINE HCL 25 MG TABLET PO SCH ×2 (15:00→16:38)
[2023-05-15] MEDS: ISOSORBIDE DINITRATE 20 MG TABLET (ISORDIL) PO SCH ×2 (15:00→16:39)
[2023-05-15] MEDS: CALCIUM ACETATE 667 MG CAP PO SCH ×2 (15:00→16:37)
[2023-05-15 16:04] VITALS: BP_SYST 125; PULSE 71; RESP 16; TEMP 97.7; O2SAT 95
[2023-05-15] MEDS: PANTOPRAZOLE SODIUM 40 MG TAB PO SCH (16:40)
[2023-05-15 17:52] VITALS: BP_SYST 125; PULSE 71; RESP 16; TEMP 97.7; O2SAT 95
[2023-05-17] MEDS ORDERED: BACTROBAN TP (10:34)
== END 2023-05-15 18:52 | disposition home or self-care (01) | DRG 425 ==
LOC: SED 01:41 → STU 04:40
PROVIDERS: ADMIT Family Medicine; ATTEND Family Medicine
PROC: 5A1D70Z Performance of Urinary Filtration, Intermittent, Less than 6 Hours Per Day (ICD-10-PCS; principal; 2023-05-14)
PROC: 5A1D70Z Performance of Urinary Filtration, Intermittent, Less than 6 Hours Per Day (ICD-10-PCS; 2023-05-14)
DX: E87.5 Hyperkalemia (principal); N17.0 Acute kidney failure with tubular necrosis; E11.21 Type 2 diabetes mellitus with diabetic nephropathy; E44.1 Mild protein-calorie malnutrition; D64.9 Anemia, unspecified; E11.22 Type 2 diabetes mellitus with diabetic chronic kidney disease; F14.10 Cocaine abuse, uncomplicated; I12.0 Hypertensive chronic kidney disease with stage 5 chronic kidney disease or end stage renal disease; N18.6 End stage renal disease; Z99.2 Dependence on renal dialysis; Z91.148 Patient's other noncompliance with medication regimen for other reason; Z68.23 Body mass index [BMI] 23.0-23.9, adult
CPT/HCPCS: 36415; 70450-TC; 76376; 76705; 80048; 80053; 82140; 82962; 83605; 85025; 87040; 87081; 90935; 90937; 99285; G0378; G0482

== ENCOUNTER 2023-06-09 07:24 | Inpatient (IN) | payer MEDICAID ==
[~2023-06-09] VITALS: Ht 172.7 cm; Wt 78.9 kg
[~2023-06-09 07:24] MED LIST changes: +BACTROBAN TP
[2023-06-09 07:29] VITALS: BP_SYST 171; PULSE 62; RESP 18; TEMP 97.8; O2SAT 94
[2023-06-09] MEDS ORDERED: ONDANSETRON HCL 4 MG/2 ML VIAL IVP ONE (07:45)
[2023-06-09 08:55] LABS: HEMATOCRIT 28.7 % (36-54); HEMOGLOBIN 8.8 g/dL (14.0-18.0); MEAN CORPUSCULAR HEMOGLOBIN 28 pg (27-31); MEAN CORPUSCULAR HGB CONC 31 % (32-36); MEAN CORPUSCULAR VOLUME 90 fL (79.0-98.0); PLATELET COUNT (AUTO) 300 K/uL (130-430); RED BLOOD CELL COUNT(AUTO) 3.18 MIL/uL (4.2-6.2); RED CELL DISTRIBUTION WIDTH 19.8 % (9.0-15.0); WHITE BLOOD COUNT (AUTO) 5.9 K/uL (4.8-10.8)
[2023-06-09 09:15] LABS: ACETAMINOPHEN < 1 ug/mL (1-30); ALANINE AMINOTRANSFERASE 13 U/L (12-78); ALBUMIN 2.8 g/dL (3.4-4.8); ALCOHOL, BLOOD < 3 mg/dL (<10); ANION GAP 19 (5-15); ASPARTATE AMINOTRANSFERASE 22 U/L (10-37); BILIRUBIN,DIRECT 0.3 mg/dL (0.0-0.3); CALCIUM 7.3 mg/dL (8.4-11.0); CARBON DIOXIDE 20 mmol/L (23-29); CHLORIDE 94 mmol/L (98-107); GFR AFRICAN AMERICAN 6 mL/min (>90); GFR NON AFRICAN-AMERICAN 5 mL/min (>90); GLUCOSE 139 mg/dL (74-106); LIPASE 71 U/L (16-77); SALICYLATE 3 mg/dL (3-30); SODIUM SERUM 133 mmol/L (136-145); TOTAL BILIRUBIN 0.5 mg/dL (0.0-1.0); TOTAL PROTEIN, SERUM 8.2 g/dL (6.4-8.3); UREA NITROGEN, BLOOD 56 mg/dL (8-21)
[2023-06-09 09:17] LABS: CREATININE 11.15 mg/dL (0.55-1.30); POTASSIUM 6.2 mmol/L (3.5-5.1)
[2023-06-09] MEDS ORDERED: CALCIUM GLUC 1 GM/100ML-NACL 100 ML IV ONE (09:30)
[2023-06-09] MEDS ORDERED: INSULIN REGULAR, HUMAN 10 UNITS/0.1 ML, 3 ML VIAL IVP ONE (09:30)
[2023-06-09] MEDS ORDERED: ALBUTEROL SULFATE 0.083% 2.5 MG/3 ML VIAL.NEB INH ONE (09:30)
[2023-06-09] MEDS ORDERED: D10W 250 ML IV SCH (09:30)
[2023-06-09 09:50] LABS: ATYPICAL LYMPHOCYTES % 2 % (0-0); BAND % (MANUAL) 2 % (0-6); BASOPHILS % (MANUAL) 0 % (0-2); EOSINOPHILS % (MANUAL) 0 % (0-7); LYMPHOCYTES % (MANUAL) 7 % (20-46); MONOCYTES % (MANUAL) 7 % (0-11)
[2023-06-09 09:51] LABS: ANISOCYTOSIS 1+; HYPOCHROMASIA SLIGHT; OVALOCYTES FEW; PLATELET ESTIMATE ADEQUATE (ADEQUATE)
[2023-06-09] MEDS: D10W 250 ML IV SCH ×6 (10:09→22:36)
[2023-06-09 10:10] LABS: INR 1.4 (0.80-1.20); PROTHROMBIN TIME 14.3 SECS (9.5-12.5)
[2023-06-09] MEDS ORDERED: DEXTROSE 50% JECT 50 ML DISP.SYRIN IVP PRN (10:15)
[2023-06-09] MEDS ORDERED: hydrALAZINE HCL 20 MG/ML VIAL IVP PRN (10:15)
[2023-06-09] MEDS ORDERED: FUROSEMIDE 40 MG/4 ML VIAL IVP ONE (10:15)
[2023-06-09] MEDS ORDERED: ONDANSETRON HCL 4 MG/2 ML VIAL IVP PRN (10:15)
[2023-06-09] MEDS ORDERED: INSULIN REGULAR, HUMAN 100 UNITS/ML, 3 ML VIAL (humuLIN R) SUBCUT PRN (10:15)
[2023-06-09] MEDS ORDERED: hydrALAZINE HCL 10 MG TABLET PO SCH ×3 (12:00→18:00)
[2023-06-09] MEDS ORDERED: NEPHROVITE, (FOLIC ACID/VITAMIN B COMP W-C 1 TAB) PO ONE (14:45)
[2023-06-09] MEDS: EPOETIN ALFA 4,000 UNITS/ML VIAL SUBCUT SCH (17:57)
[2023-06-09] MEDS: CALCIUM ACETATE 667 MG CAP PO SCH (18:00)
[2023-06-09] MEDS ORDERED: hydrALAZINE HCL 20 MG/ML VIAL IVP SCH (18:00)
[2023-06-09 19:29] VITALS: BP_SYST 154; PULSE 89; RESP 20; TEMP 97.9; O2SAT 97
[2023-06-09 20:00] VITALS: BP_SYST 163; PULSE 98; RESP 18; TEMP 97.8; O2SAT 99
[2023-06-09] MEDS: CARVEDILOL 6.25 MG TABLET (COREG) PO SCH (22:03)
[2023-06-09] MEDS: hydrALAZINE HCL 25 MG TABLET PO SCH (22:03)
[2023-06-09] MEDS: ISOSORBIDE DINITRATE 20 MG TABLET (ISORDIL) PO SCH (22:04)
[2023-06-10] VITALS: BP_SYST 152; PULSE 94; RESP 18; TEMP 97.6; O2SAT 97
[2023-06-10] MEDS: D10W 250 ML IV SCH ×7 (01:06→16:06)
[2023-06-10 02:09] VITALS: BP_SYST 163; PULSE 98; RESP 18; TEMP 97.8
[2023-06-10] MEDS: ISOSORBIDE DINITRATE 20 MG TABLET (ISORDIL) PO SCH ×3 (05:54→22:57)
[2023-06-10] MEDS: hydrALAZINE HCL 25 MG TABLET PO SCH ×3 (05:54→22:56)
[2023-06-10 07:21] LABS: ALBUMIN 2.3 g/dL (3.4-4.8); CALCIUM 7.5 mg/dL (8.4-11.0); POTASSIUM 4.1 mmol/L (3.5-5.1); TOTAL BILIRUBIN 0.4 mg/dL (0.0-1.0); TOTAL PROTEIN, SERUM 7.1 g/dL (6.4-8.3)
[2023-06-10 07:23] LABS: CREATININE 8.53 mg/dL (0.55-1.30)
[2023-06-10 07:57] LABS: BASOPHILS # (AUTO) 0.1 K/uL (0.0-0.2); BASOPHILS % (AUTO) 1.2 % (0.0-2.0); EOSINOPHILS % (AUTO) 0.1 % (0.0-4.0); HEMATOCRIT 26.9 % (36-54); HEMOGLOBIN 8.5 g/dL (14.0-18.0); LYMPHOCYTES # (AUTO) 0.4 K/uL (1.0-5.5); MEAN CORPUSCULAR HEMOGLOBIN 28 pg (27-31); MEAN CORPUSCULAR HGB CONC 32 % (32-36); MEAN CORPUSCULAR VOLUME 89 fL (79.0-98.0); MONOCYTES # (AUTO) 0.5 K/uL (0.0-1.0); MONOCYTES % (AUTO) 9.3 % (1.7-9.3); NEUTROPHILS # (AUTO) 4.2 K/uL (1.8-7.7); NEUTROPHILS % (AUTO) 81.4 % (40.0-70.0); PLATELET COUNT (AUTO) 201 K/uL (130-430); RED BLOOD CELL COUNT(AUTO) 3.02 MIL/uL (4.2-6.2); RED CELL DISTRIBUTION WIDTH 20.1 % (9.0-15.0); WHITE BLOOD COUNT (AUTO) 5.2 K/uL (4.8-10.8)
[2023-06-10 08:00] VITALS: BP_SYST 106; PULSE 91; RESP 18; TEMP 99.8; O2SAT 100
[2023-06-10] MEDS: CARVEDILOL 6.25 MG TABLET (COREG) PO SCH ×2 (10:14→21:21)
[2023-06-10] MEDS: CALCIUM ACETATE 667 MG CAP PO SCH ×3 (10:14→17:00)
[2023-06-10] MEDS: NEPHROVITE, (FOLIC ACID/VITAMIN B COMP W-C 1 TAB) PO SCH (10:14)
[2023-06-10 12:00] VITALS: BP_SYST 137; PULSE 92; RESP 16; TEMP 99.7; O2SAT 94
[2023-06-10 16:00] VITALS: BP_SYST 145; PULSE 90; RESP 17; TEMP 99.7; O2SAT 95
[2023-06-10] MEDS ORDERED: PANTOPRAZOLE SODIUM 40 MG/VIAL (PROTONIX) IVP ONE (16:15)
[2023-06-10] MEDS: MORPHINE 4 MG INJ. 4 MG/ML VIAL IVP PRN (16:58)
[2023-06-10 20:00] VITALS: BP_SYST 135; PULSE 92; RESP 18; TEMP 98.6; O2SAT 97
[2023-06-11] VITALS: BP_SYST 155; PULSE 86; RESP 18; TEMP 99; O2SAT 99
[2023-06-11] MEDS: ISOSORBIDE DINITRATE 20 MG TABLET (ISORDIL) PO SCH ×3 (06:02→22:20)
[2023-06-11] MEDS: hydrALAZINE HCL 25 MG TABLET PO SCH ×3 (06:02→22:20)
[2023-06-11 06:37] LABS: BASOPHILS # (AUTO) 0.1 K/uL (0.0-0.2); BASOPHILS % (AUTO) 1.2 % (0.0-2.0); EOSINOPHILS % (AUTO) 0.2 % (0.0-4.0); HEMATOCRIT 25.6 % (36-54); HEMOGLOBIN 8.2 g/dL (14.0-18.0); LYMPHOCYTES # (AUTO) 0.7 K/uL (1.0-5.5); LYMPHOCYTES % (AUTO) 13.6 % (20.5-51.5); MEAN CORPUSCULAR HEMOGLOBIN 29 pg (27-31); MEAN CORPUSCULAR HGB CONC 32 % (32-36); MEAN CORPUSCULAR VOLUME 89 fL (79.0-98.0); MONOCYTES # (AUTO) 0.4 K/uL (0.0-1.0); MONOCYTES % (AUTO) 8.2 % (1.7-9.3); NEUTROPHILS # (AUTO) 3.8 K/uL (1.8-7.7); NEUTROPHILS % (AUTO) 76.8 % (40.0-70.0); PLATELET COUNT (AUTO) 154 K/uL (130-430); RED BLOOD CELL COUNT(AUTO) 2.87 MIL/uL (4.2-6.2); RED CELL DISTRIBUTION WIDTH 20.4 % (9.0-15.0)
[2023-06-11 06:55] LABS: ALBUMIN 1.9 g/dL (3.4-4.8); CALCIUM 7.6 mg/dL (8.4-11.0); CREATININE 6.6 mg/dL (0.55-1.30); POTASSIUM 3.3 mmol/L (3.5-5.1); TOTAL BILIRUBIN 0.4 mg/dL (0.0-1.0); TOTAL PROTEIN, SERUM 6.8 g/dL (6.4-8.3)
[2023-06-11 08:00] VITALS: BP_SYST 152; PULSE 89; RESP 18; TEMP 99.6; O2SAT 96
[2023-06-11] MEDS: NEPHROVITE, (FOLIC ACID/VITAMIN B COMP W-C 1 TAB) PO SCH (09:20)
[2023-06-11] MEDS: CARVEDILOL 6.25 MG TABLET (COREG) PO SCH (09:21)
[2023-06-11] MEDS: PANTOPRAZOLE SODIUM 40 MG TAB PO SCH (09:21)
[2023-06-11] MEDS: CALCIUM ACETATE 667 MG CAP PO SCH ×3 (09:21→17:46)
[2023-06-11 11:30] VITALS: BP_SYST 118; PULSE 78; RESP 18; TEMP 98.3; O2SAT 96
[2023-06-11] MEDS ORDERED: SACUBITRIL/VALSARTAN 24 MG-26 MG 1 TABLET PO ONE (11:30)
[2023-06-11] MEDS ORDERED: ATORVASTATIN 20 MG TABLET PO ONE (11:30)
[2023-06-11] MEDS: MORPHINE 4 MG INJ. 4 MG/ML VIAL IVP PRN ×2 (13:06→18:29)
[2023-06-11 16:00] VITALS: BP_SYST 115; PULSE 76; RESP 18; TEMP 98.8; O2SAT 96
[2023-06-11 20:00] VITALS: BP_SYST 137; PULSE 76; RESP 18; TEMP 98.1; O2SAT 100
[2023-06-11] MEDS ORDERED: POTASSIUM CHLORIDE 20 MEQ TABLET.ER PO ONE (20:15)
[2023-06-11] MEDS: SACUBITRIL/VALSARTAN 24 MG-26 MG 1 TABLET PO SCH (22:20)
[2023-06-11] MEDS: CARVEDILOL 12.5 MG TABLET (COREG) PO SCH (22:21)
[2023-06-12] VITALS (7 sets, daily range): BP systolic 102–140; PULSE 71–77; RESP 16–20; TEMP 97.5–98.6; O2SAT 95–100
[2023-06-12] MEDS: ISOSORBIDE DINITRATE 20 MG TABLET (ISORDIL) PO SCH (06:18)
[2023-06-12] MEDS: hydrALAZINE HCL 25 MG TABLET PO SCH (06:18)
[2023-06-12 07:09] LABS: ALBUMIN 1.9 g/dL (3.4-4.8); CALCIUM 7.3 mg/dL (8.4-11.0); POTASSIUM 3.5 mmol/L (3.5-5.1); TOTAL BILIRUBIN 0.3 mg/dL (0.0-1.0); TOTAL PROTEIN, SERUM 6.1 g/dL (6.4-8.3)
[2023-06-12 07:13] LABS: CREATININE 8.49 mg/dL (0.55-1.30)
[2023-06-12 07:42] LABS: HEMOGLOBIN 9.7 g/dL (14.0-18.0); MEAN CORPUSCULAR HEMOGLOBIN 29 pg (27-31); MEAN CORPUSCULAR HGB CONC 32 % (32-36); MEAN CORPUSCULAR VOLUME 90 fL (79.0-98.0); PLATELET COUNT (AUTO) 158 K/uL (130-430); RED BLOOD CELL COUNT(AUTO) 3.35 MIL/uL (4.2-6.2); RED CELL DISTRIBUTION WIDTH 21.4 % (9.0-15.0); WHITE BLOOD COUNT (AUTO) 3.6 K/uL (4.8-10.8)
[2023-06-12] MEDS: CARVEDILOL 12.5 MG TABLET (COREG) PO SCH ×2 (09:00→20:24)
[2023-06-12 09:06] LABS: ANISOCYTOSIS 2+; BAND % (MANUAL) 11 % (0-6); BASOPHILS % (MANUAL) 0 % (0-2); EOSINOPHILS % (MANUAL) 0 % (0-7); LYMPHOCYTES % (MANUAL) 18 % (20-46); MONOCYTES % (MANUAL) 9 % (0-11); PLATELET ESTIMATE ADEQUATE (ADEQUATE); TARGET CELLS FEW
[2023-06-12] MEDS: PANTOPRAZOLE SODIUM 40 MG TAB PO SCH (09:52)
[2023-06-12] MEDS: SACUBITRIL/VALSARTAN 24 MG-26 MG 1 TABLET PO SCH ×2 (09:52→20:24)
[2023-06-12] MEDS: CALCIUM ACETATE 667 MG CAP PO SCH ×4 (09:52→17:43)
[2023-06-12] MEDS: NEPHROVITE, (FOLIC ACID/VITAMIN B COMP W-C 1 TAB) PO SCH (09:52)
[2023-06-12] MEDS: ATORVASTATIN 20 MG TABLET PO SCH (09:53)
[2023-06-12] MEDS ORDERED: DIPHENHYDRAMINE HCL 50 MG CAPSULE PO ONE (10:15)
[2023-06-12] MEDS: EPOETIN ALFA 4,000 UNITS/ML VIAL SUBCUT SCH (16:53)
[2023-06-12] MEDS: MORPHINE 4 MG INJ. 4 MG/ML VIAL IVP PRN (17:17)
[2023-06-13] VITALS: BP_SYST 134; PULSE 78; RESP 18; TEMP 98; O2SAT 100
[2023-06-13 06:37] LABS: BASOPHILS % (AUTO) 0.7 % (0.0-2.0); EOSINOPHILS # (AUTO) 0.1 K/uL (0.0-0.4); EOSINOPHILS % (AUTO) 1.6 % (0.0-4.0); HEMATOCRIT 32.4 % (36-54); LYMPHOCYTES # (AUTO) 1.1 K/uL (1.0-5.5); LYMPHOCYTES % (AUTO) 31.3 % (20.5-51.5); MEAN CORPUSCULAR HEMOGLOBIN 28 pg (27-31); MEAN CORPUSCULAR HGB CONC 31 % (32-36); MEAN CORPUSCULAR VOLUME 90 fL (79.0-98.0); MONOCYTES # (AUTO) 0.5 K/uL (0.0-1.0); MONOCYTES % (AUTO) 13.3 % (1.7-9.3); NEUTROPHILS # (AUTO) 1.9 K/uL (1.8-7.7); NEUTROPHILS % (AUTO) 53.1 % (40.0-70.0); PLATELET COUNT (AUTO) 159 K/uL (130-430); RED BLOOD CELL COUNT(AUTO) 3.61 MIL/uL (4.2-6.2); WHITE BLOOD COUNT (AUTO) 3.5 K/uL (4.8-10.8)
[2023-06-13 07:40] LABS: CALCIUM 7.6 mg/dL (8.4-11.0); CREATININE 6.14 mg/dL (0.55-1.30); POTASSIUM 4.2 mmol/L (3.5-5.1)
[2023-06-13 08:00] VITALS: BP_SYST 118; PULSE 78; RESP 17; TEMP 98.2; O2SAT 98
[2023-06-13] MEDS ORDERED: EPOETIN ALFA-EPBX 4,000 UNITS/ML VIAL SUBCUT SCH (09:00)
[2023-06-13] MEDS: MORPHINE 4 MG INJ. 4 MG/ML VIAL IVP PRN (09:04)
[2023-06-13] MEDS: SACUBITRIL/VALSARTAN 24 MG-26 MG 1 TABLET PO SCH (09:04)
[2023-06-13] MEDS: NEPHROVITE, (FOLIC ACID/VITAMIN B COMP W-C 1 TAB) PO SCH (09:05)
[2023-06-13] MEDS: CARVEDILOL 12.5 MG TABLET (COREG) PO SCH (09:05)
[2023-06-13] MEDS: PANTOPRAZOLE SODIUM 40 MG TAB PO SCH (09:06)
[2023-06-13] MEDS: CALCIUM ACETATE 667 MG CAP PO SCH ×3 (09:06→17:00)
[2023-06-13] MEDS: ATORVASTATIN 20 MG TABLET PO SCH (09:06)
[2023-06-13 11:54] VITALS: BP_SYST 116; PULSE 80; RESP 16; TEMP 97.9; O2SAT 98
[2023-06-13 16:27] VITALS: BP_SYST 123; PULSE 78; RESP 17; TEMP 98; O2SAT 99
[2023-06-13 17:18] VITALS: BP_SYST 123; PULSE 78; RESP 17; TEMP 98; O2SAT 99
== END 2023-06-13 17:20 | disposition home or self-care (01) | DRG 194 ==
LOC: SED 07:24 → STU 10:03 → SMU 06-10 23:25
PROVIDERS: ADMIT Internal Medicine; ATTEND Internal Medicine
PROC: 5A1D70Z Performance of Urinary Filtration, Intermittent, Less than 6 Hours Per Day (ICD-10-PCS; principal; 2023-06-09)
PROC: 5A1D70Z Performance of Urinary Filtration, Intermittent, Less than 6 Hours Per Day (ICD-10-PCS; 2023-06-11)
DX: I13.2 Hypertensive heart and chronic kidney disease with heart failure and with stage 5 chronic kidney disease, or end stage renal disease (principal); G93.41 Metabolic encephalopathy; E43 Unspecified severe protein-calorie malnutrition; I27.20 Pulmonary hypertension, unspecified; D63.8 Anemia in other chronic diseases classified elsewhere; N18.6 End stage renal disease; E87.5 Hyperkalemia; I50.41 Acute combined systolic (congestive) and diastolic (congestive) heart failure; I42.9 Cardiomyopathy, unspecified; F19.10 Other psychoactive substance abuse, uncomplicated; I1A.0 Resistant hypertension; E11.22 Type 2 diabetes mellitus with diabetic chronic kidney disease; Z68.26 Body mass index [BMI] 26.0-26.9, adult; E11.21 Type 2 diabetes mellitus with diabetic nephropathy; I08.1 Rheumatic disorders of both mitral and tricuspid valves; I25.10 Atherosclerotic heart disease of native coronary artery without angina pectoris; Z91.158 Patient's noncompliance with renal dialysis for other reason; Z98.61 Coronary angioplasty status; Z91.199 Patient's noncompliance with other medical treatment and regimen due to unspecified reason
CPT/HCPCS: 36415; 70450-TC; 71045; 76376; 80048; 80053; 80076; 82962; 83605; 83690; 84100; 84484; 85007; 85025; 85027; 85610-TC; 85730-TC; 87040; 90935; 90937; 93005; 94640; 96365; 96375; 99291; C9113; G0378; G0480; G0481; G0482; J0360; J0885; J1940; J2270; J2405; Q0163

== ENCOUNTER 2023-07-10 16:14 | Inpatient (IN) | payer MEDICAID ==
[~2023-07-10] VITALS: Ht 165.1 cm; Wt 76.2 kg
[2023-07-10 16:15] VITALS: BP_SYST 98; PULSE 49; RESP 19; TEMP 98; O2SAT 93
[2023-07-10] MEDS ORDERED: KETOROLAC TROMETHAMINE 30 MG VIAL IVP ONE ×2 (16:30→17:30)
[2023-07-10] MEDS ORDERED: ASPIRIN 81 MG TAB.CHEW PO ONE (16:30)
[2023-07-10 17:12] LABS: BASOPHILS # (AUTO) 0.1 K/uL (0.0-0.2); BASOPHILS % (AUTO) 1.3 % (0.0-2.0); EOSINOPHILS # (AUTO) 0.1 K/uL (0.0-0.4); EOSINOPHILS % (AUTO) 1.3 % (0.0-4.0); HEMATOCRIT 29.5 % (36-54); HEMOGLOBIN 9.5 g/dL (14.0-18.0); LYMPHOCYTES # (AUTO) 1.2 K/uL (1.0-5.5); LYMPHOCYTES % (AUTO) 20.6 % (20.5-51.5); MEAN CORPUSCULAR HEMOGLOBIN 29 pg (27-31); MEAN CORPUSCULAR HGB CONC 32 % (32-36); MEAN CORPUSCULAR VOLUME 90 fL (79.0-98.0); MONOCYTES # (AUTO) 0.7 K/uL (0.0-1.0); MONOCYTES % (AUTO) 11.7 % (1.7-9.3); NEUTROPHILS # (AUTO) 3.6 K/uL (1.8-7.7); NEUTROPHILS % (AUTO) 65.1 % (40.0-70.0); PLATELET COUNT (AUTO) 288 K/uL (130-430); RED BLOOD CELL COUNT(AUTO) 3.28 MIL/uL (4.2-6.2); RED CELL DISTRIBUTION WIDTH 19.8 % (9.0-15.0); WHITE BLOOD COUNT (AUTO) 5.6 K/uL (4.8-10.8)
[2023-07-10] MEDS ORDERED: KETOROLAC TROMETHAMINE 30 MG VIAL IM ONE (17:15)
[2023-07-10] MEDS ORDERED: ATROPINE SULFATE 1 MG/10 ML SYRINGE IVP ONE ×3 (17:21→18:00)
[2023-07-10 17:30] LABS: ANION GAP 19 (5-15); CARBON DIOXIDE 18 mmol/L (23-29); CHLORIDE 99 mmol/L (98-107); GFR AFRICAN AMERICAN 7 mL/min (>90); GLUCOSE 158 mg/dL (74-106); SODIUM SERUM 136 mmol/L (136-145); UREA NITROGEN, BLOOD 89 mg/dL (8-21)
[2023-07-10 17:34] LABS: GFR NON AFRICAN-AMERICAN 5 mL/min (>90)
[2023-07-10 17:35] LABS: CALCIUM 6.2 mg/dL (8.4-11.0); POTASSIUM 7.5 mmol/L (3.5-5.1)
[2023-07-10 17:36] LABS: CREATININE 10.48 mg/dL (0.55-1.30)
[2023-07-10] MEDS ORDERED: DEXTROSE 50% JECT 50 ML DISP.SYRIN IVP ONE (17:45)
[2023-07-10] MEDS ORDERED: SODIUM BICARBONATE 8.4% JECT 50 MEQ/50 ML SYRINGE IVP ONE (17:45)
[2023-07-10] MEDS ORDERED: ONDANSETRON HCL 4 MG/2 ML VIAL IVP ONE (17:45)
[2023-07-10] MEDS ORDERED: SODIUM POLYSTYRENE SULFONATE 15 GM/60 ML UDBTL PO ONE (17:45)
[2023-07-10] MEDS ORDERED: INSULIN REGULAR, HUMAN 10 UNITS/0.1 ML, 3 ML VIAL IVP ONE (17:45)
[2023-07-10] MEDS ORDERED: CALCIUM CHLORIDE 1 GM in NS 100 ML IV ONE (17:45)
[2023-07-10] MEDS ORDERED: CALCIUM GLUC 1 GM/100ML-NACL 100 ML IV ONE ×2 (17:45→17:48)
[2023-07-10] MEDS ORDERED: ASPIRIN 81 MG TAB.CHEW ONE (18:35)
[2023-07-10] MEDS: CALCIUM 500 MG/TAB PO SCH (21:00)
[2023-07-10] MEDS: NORMAL SALINE 5 ML DISP.SYRIN IVF SCH (23:07)
[2023-07-11] MEDS ORDERED: MORPHINE 4 MG INJ. 4 MG/ML VIAL IVP ONE (04:00)
[2023-07-11 05:43] LABS: BASOPHILS # (AUTO) 0.1 K/uL (0.0-0.2); BASOPHILS % (AUTO) 1.5 % (0.0-2.0); EOSINOPHILS # (AUTO) 0.1 K/uL (0.0-0.4); EOSINOPHILS % (AUTO) 1.3 % (0.0-4.0); HEMATOCRIT 26.9 % (36-54); LYMPHOCYTES # (AUTO) 0.9 K/uL (1.0-5.5); LYMPHOCYTES % (AUTO) 13.6 % (20.5-51.5); MEAN CORPUSCULAR HEMOGLOBIN 29 pg (27-31); MEAN CORPUSCULAR HGB CONC 33 % (32-36); MEAN CORPUSCULAR VOLUME 87 fL (79.0-98.0); MONOCYTES # (AUTO) 0.7 K/uL (0.0-1.0); MONOCYTES % (AUTO) 10.8 % (1.7-9.3); NEUTROPHILS # (AUTO) 4.6 K/uL (1.8-7.7); NEUTROPHILS % (AUTO) 72.8 % (40.0-70.0); PLATELET COUNT (AUTO) 241 K/uL (130-430); RED BLOOD CELL COUNT(AUTO) 3.09 MIL/uL (4.2-6.2); RED CELL DISTRIBUTION WIDTH 18.6 % (9.0-15.0); WHITE BLOOD COUNT (AUTO) 6.3 K/uL (4.8-10.8)
[2023-07-11 05:56] LABS: ALBUMIN 2.1 g/dL (3.4-4.8); CREATININE 6.79 mg/dL (0.55-1.30); PHOSPHORUS 5.9 mg/dL (2.7-4.5); TOTAL BILIRUBIN 0.4 mg/dL (0.0-1.0); TOTAL PROTEIN, SERUM 6.5 g/dL (6.4-8.3)
[2023-07-11] MEDS ORDERED: ONDANSETRON HCL 4 MG/2 ML VIAL IVP PRN (06:00)
[2023-07-11] MEDS: NORMAL SALINE 5 ML DISP.SYRIN IVF SCH ×3 (06:01→21:58)
[2023-07-11 06:07] LABS: CALCIUM 6.3 mg/dL (8.4-11.0)
[2023-07-11] MEDS: CALCIUM 500 MG/TAB PO SCH (09:57)
[2023-07-11] MEDS: MORPHINE 2 MG/ML INJ. SYRINGE IVP PRN ×3 (10:02→21:56)
[2023-07-11 14:13] VITALS: BP_SYST 134; PULSE 80; RESP 16; TEMP 98.7; O2SAT 100
[2023-07-11] MEDS ORDERED: CALCIUM GLUC 2 GM/100ML-NACL 100 ML IV ONE (15:00)
[2023-07-11 15:07] VITALS: BP_SYST 156; PULSE 82; RESP 16; TEMP 98.3; O2SAT 95
[2023-07-11 20:26] LABS: BARBITURATE, URINE NEGATIVE (NEG <=200); BENZODIAZEPINE, URINE NEGATIVE (NEG <=150); CANNABINOID, URINE NEGATIVE (NEG <=50); COCAINE, URINE NEGATIVE (NEG <=150); METHAMPHETAMINES SCREEN,URINE NEGATIVE (NEG <=500); OPIATE, URINE POSITIVE (NEG <=100); URINE AMPHETAMINE NEGATIVE (NEG <=500); URINE METHADONE NEGATIVE (NEG <=200)
[2023-07-11 20:27] LABS: PHENCYCLIDINE SCREEN,URINE NEGATIVE (NEG <=25); UR TRICYCLIC ANTIDEPRESSANTS NEGATIVE (NEG <=300); URINE OXYCODONE SCREEN NEGATIVE (NEG <=100)
[2023-07-11 20:37] VITALS: BP_SYST 150; PULSE 79; RESP 18; TEMP 98.9; O2SAT 98
[2023-07-11 20:39] VITALS: BP_SYST 150; PULSE 79; RESP 18; TEMP 98.9; O2SAT 98
[2023-07-11 20:43] VITALS: BP_SYST 150; PULSE 79; RESP 18; TEMP 98.9
[2023-07-11 20:44] VITALS: O2SAT 98
[2023-07-11] MEDS: FERROUS SULFATE 325 MG TABLET.DR PO SCH (21:57)
[2023-07-11] MEDS: CALCIUM CARBONATE/VITAMIN D3 1 TAB TABLET PO SCH (21:57)
[2023-07-12 00:36] VITALS: BP_SYST 156; PULSE 75; RESP 18; TEMP 98.4; O2SAT 94
[2023-07-12] MEDS: MORPHINE 2 MG/ML INJ. SYRINGE IVP PRN ×2 (06:53→14:18)
[2023-07-12] MEDS: NORMAL SALINE 5 ML DISP.SYRIN IVF SCH ×2 (06:56→14:19)
[2023-07-12 08:00] VITALS: BP_SYST 163; PULSE 87; RESP 16; TEMP 98.9; O2SAT 99
[2023-07-12] MEDS: FERROUS SULFATE 325 MG TABLET.DR PO SCH (09:00)
[2023-07-12] MEDS: CALCIUM CARBONATE/VITAMIN D3 1 TAB TABLET PO SCH (09:00)
[2023-07-12] MEDS ORDERED: calcitrioL 0.25 MCG CAPSULE PO SCH (09:00)
[2023-07-12 10:33] LABS: BASOPHILS # (AUTO) 0.1 K/uL (0.0-0.2); BASOPHILS % (AUTO) 1.1 % (0.0-2.0); EOSINOPHILS # (AUTO) 0.3 K/uL (0.0-0.4); EOSINOPHILS % (AUTO) 4.3 % (0.0-4.0); HEMATOCRIT 26.4 % (36-54); HEMOGLOBIN 8.7 g/dL (14.0-18.0); LYMPHOCYTES # (AUTO) 0.9 K/uL (1.0-5.5); MEAN CORPUSCULAR HEMOGLOBIN 29 pg (27-31); MEAN CORPUSCULAR HGB CONC 33 % (32-36); MEAN CORPUSCULAR VOLUME 88 fL (79.0-98.0); MONOCYTES # (AUTO) 1.2 K/uL (0.0-1.0); MONOCYTES % (AUTO) 16.3 % (1.7-9.3); NEUTROPHILS # (AUTO) 4.8 K/uL (1.8-7.7); NEUTROPHILS % (AUTO) 66.3 % (40.0-70.0); PLATELET COUNT (AUTO) 268 K/uL (130-430); RED BLOOD CELL COUNT(AUTO) 2.99 MIL/uL (4.2-6.2); RED CELL DISTRIBUTION WIDTH 19.4 % (9.0-15.0); WHITE BLOOD COUNT (AUTO) 7.2 K/uL (4.8-10.8)
[2023-07-12 10:51] LABS: ALBUMIN 1.9 g/dL (3.4-4.8); PHOSPHORUS 6.8 mg/dL (2.7-4.5); POTASSIUM 4.8 mmol/L (3.5-5.1); TOTAL BILIRUBIN 0.4 mg/dL (0.0-1.0); TOTAL PROTEIN, SERUM 6.3 g/dL (6.4-8.3)
[2023-07-12 10:53] LABS: CREATININE 8.27 mg/dL (0.55-1.30)
[2023-07-12 11:15] VITALS: BP_SYST 176; PULSE 76; RESP 16; TEMP 97; O2SAT 93
[2023-07-12 15:55] VITALS: BP_SYST 164; PULSE 89; RESP 16; TEMP 98.1; O2SAT 98
[2023-07-12] MEDS ORDERED: CALCIUM GLUC 2 GM/100ML-NACL 100 ML IV ONE (18:30)
[2023-07-12 19:04] VITALS: BP_SYST 161; PULSE 85; RESP 18; TEMP 98.4; O2SAT 96
[2023-07-13] MEDS ORDERED: CALCIUM ACETATE 667 MG CAP PO SCH (08:00)
== END 2023-07-12 19:45 | disposition home or self-care (01) | DRG 425 ==
LOC: SED 16:14 → SIC 19:27 → STU 19:47
PROVIDERS: ADMIT Internal Medicine; ATTEND Internal Medicine
PROC: 5A1D70Z Performance of Urinary Filtration, Intermittent, Less than 6 Hours Per Day (ICD-10-PCS; principal; 2023-07-10)
PROC: 5A1D70Z Performance of Urinary Filtration, Intermittent, Less than 6 Hours Per Day (ICD-10-PCS; 2023-07-11)
DX: E87.5 Hyperkalemia (principal); I13.2 Hypertensive heart and chronic kidney disease with heart failure and with stage 5 chronic kidney disease, or end stage renal disease; I42.9 Cardiomyopathy, unspecified; N18.6 End stage renal disease; E83.39 Other disorders of phosphorus metabolism; E83.51 Hypocalcemia; D63.8 Anemia in other chronic diseases classified elsewhere; E11.22 Type 2 diabetes mellitus with diabetic chronic kidney disease; E11.40 Type 2 diabetes mellitus with diabetic neuropathy, unspecified; R00.1 Bradycardia, unspecified; Z99.2 Dependence on renal dialysis; J44.9 Chronic obstructive pulmonary disease, unspecified; K21.9 Gastro-esophageal reflux disease without esophagitis; I50.9 Heart failure, unspecified; Z91.199 Patient's noncompliance with other medical treatment and regimen due to unspecified reason; K74.60 Unspecified cirrhosis of liver
CPT/HCPCS: 36415; 71045; 71048; 80048; 80053; 80061; 80307; 82962; 83735; 83880; 84100; 84484; 85025; 87081; 90935; 90937; 93005; 99291; 99292; G0378; J0461; J1815; J1885; J2270; J2405

== ENCOUNTER 2023-08-12 20:37 | Inpatient (IN) | payer MEDICAID ==
[~2023-08-12] VITALS: Ht 165.1 cm; Wt 75.7 kg
[~2023-08-12 20:37] MED LIST changes: -BACTROBAN TP
[2023-08-12 21:00] VITALS: BP_SYST 104; PULSE 60; RESP 18; TEMP 98.2; O2SAT 98
[2023-08-12 21:59] LABS: BASOPHILS # (AUTO) 0.1 K/uL (0.0-0.2); BASOPHILS % (AUTO) 1.1 % (0.0-2.0); EOSINOPHILS # (AUTO) 0.1 K/uL (0.0-0.4); EOSINOPHILS % (AUTO) 1.3 % (0.0-4.0); HEMATOCRIT 32.3 % (36-54); HEMOGLOBIN 10.5 g/dL (14.0-18.0); LYMPHOCYTES # (AUTO) 0.9 K/uL (1.0-5.5); LYMPHOCYTES % (AUTO) 17.2 % (20.5-51.5); MEAN CORPUSCULAR HEMOGLOBIN 30 pg (27-31); MEAN CORPUSCULAR HGB CONC 32 % (32-36); MEAN CORPUSCULAR VOLUME 91 fL (79.0-98.0); MONOCYTES # (AUTO) 0.9 K/uL (0.0-1.0); MONOCYTES % (AUTO) 16.1 % (1.7-9.3); NEUTROPHILS # (AUTO) 3.5 K/uL (1.8-7.7); NEUTROPHILS % (AUTO) 64.3 % (40.0-70.0); PLATELET COUNT (AUTO) 171 K/uL (130-430); RED BLOOD CELL COUNT(AUTO) 3.54 MIL/uL (4.2-6.2); RED CELL DISTRIBUTION WIDTH 19.9 % (9.0-15.0); WHITE BLOOD COUNT (AUTO) 5.5 K/uL (4.8-10.8)
[2023-08-12 22:21] LABS: INR 1.3 (0.80-1.20); PROTHROMBIN TIME 13.7 SECS (9.5-12.5)
[2023-08-12 22:38] LABS: ALANINE AMINOTRANSFERASE 54 U/L (12-78); ALBUMIN 2.1 g/dL (3.4-4.8); ANION GAP 13 (5-15); ASPARTATE AMINOTRANSFERASE 66 U/L (10-37); BILIRUBIN,DIRECT 0.2 mg/dL (0.0-0.3); CALCIUM 7.2 mg/dL (8.4-11.0); CARBON DIOXIDE 22 mmol/L (23-29); CHLORIDE 96 mmol/L (98-107); GFR AFRICAN AMERICAN 10 mL/min (>90); GLUCOSE 186 mg/dL (74-106); POTASSIUM 5.7 mmol/L (3.5-5.1); SODIUM SERUM 131 mmol/L (136-145); TOTAL BILIRUBIN 0.4 mg/dL (0.0-1.0); TOTAL PROTEIN, SERUM 6.9 g/dL (6.4-8.3); UREA NITROGEN, BLOOD 60 mg/dL (8-21)
[2023-08-12 22:40] LABS: GFR NON AFRICAN-AMERICAN 8 mL/min (>90)
[2023-08-12 23:10] LABS: INFLUENZA TYPE A Negative (NEGATIVE); INFLUENZA TYPE B NEGATIVE (NEGATIVE)
[2023-08-13 01:00] VITALS: BP_SYST 108; PULSE 55; RESP 20; TEMP 98.3
[2023-08-13] MEDS: NORMAL SALINE 5 ML DISP.SYRIN IVF SCH (01:43)
[2023-08-13 05:34] VITALS: O2SAT 95
[2023-08-13 07:35] LABS: BASOPHILS # (AUTO) 0.1 K/uL (0.0-0.2); BASOPHILS % (AUTO) 1.3 % (0.0-2.0); EOSINOPHILS # (AUTO) 0.1 K/uL (0.0-0.4); EOSINOPHILS % (AUTO) 1.9 % (0.0-4.0); LYMPHOCYTES % (AUTO) 17.7 % (20.5-51.5); MEAN CORPUSCULAR HEMOGLOBIN 30 pg (27-31); MEAN CORPUSCULAR HGB CONC 33 % (32-36); MEAN CORPUSCULAR VOLUME 90 fL (79.0-98.0); MONOCYTES # (AUTO) 0.9 K/uL (0.0-1.0); MONOCYTES % (AUTO) 17.1 % (1.7-9.3); NEUTROPHILS # (AUTO) 3.4 K/uL (1.8-7.7); PLATELET COUNT (AUTO) 180 K/uL (130-430); RED BLOOD CELL COUNT(AUTO) 3.36 MIL/uL (4.2-6.2); RED CELL DISTRIBUTION WIDTH 19.3 % (9.0-15.0); WHITE BLOOD COUNT (AUTO) 5.5 K/uL (4.8-10.8)
[2023-08-13 08:00] VITALS: BP_SYST 128; PULSE 85; RESP 20; TEMP 98; O2SAT 99
[2023-08-13] MEDS ORDERED: NITROGLYCERIN 0.4 MG TAB.SUBL SL PRN (08:00)
[2023-08-13 08:03] LABS: POTASSIUM 5.1 mmol/L (3.5-5.1); TOTAL BILIRUBIN 0.4 mg/dL (0.0-1.0); TOTAL PROTEIN, SERUM 6.5 g/dL (6.4-8.3)
[2023-08-13 08:10] LABS: CALCIUM 6.9 mg/dL (8.4-11.0); CREATININE 8.16 mg/dL (0.55-1.30)
[2023-08-13] MEDS: ISOSORBIDE DINITRATE 20 MG TABLET (ISORDIL) PO SCH (09:00)
[2023-08-13] MEDS: CARVEDILOL 12.5 MG TABLET (COREG) PO SCH (09:00)
[2023-08-13] MEDS: CALCIUM ACETATE 667 MG CAP PO ONE (10:18)
[2023-08-13] MEDS: PANTOPRAZOLE SODIUM 40 MG TAB PO SCH (10:18)
[2023-08-13] MEDS: CLOPIDOGREL BISULFATE 75 MG TABLET PO SCH (10:18)
[2023-08-13] MEDS: LORazepam 2 MG/ML VIAL IVP PRN (11:55)
[2023-08-13] MEDS: CALCIUM ACETATE 667 MG CAP PO SCH (12:00)
[2023-08-13 16:00] VITALS: BP_SYST 123; PULSE 80; RESP 20; TEMP 97.6; O2SAT 98
[2023-08-13] MEDS: DEXAMETHASONE SOD PHOSPHATE 10 MG/ML VIAL IVP SCH (16:57)
[2023-08-13] MEDS: cefTRIAXone 1 GM in D5W 50 ML IV SCH (16:57)
[2023-08-13 20:55] VITALS: BP_SYST 147; PULSE 65; RESP 18; TEMP 97.3; O2SAT 100
[2023-08-13] MEDS: roPINIRole HCL 0.25 MG ( REQUIP )TABLET PO SCH (23:42)
[2023-08-13 23:43] VITALS: BP_SYST 181; PULSE 73; RESP 18; TEMP 97.9; O2SAT 100
[2023-08-13] MEDS: MIRTAZAPINE 15 MG TABLET PO SCH (23:43)
[2023-08-14 06:11] LABS: BASOPHILS % (AUTO) 0.3 % (0.0-2.0); LYMPHOCYTES # (AUTO) 0.4 K/uL (1.0-5.5); LYMPHOCYTES % (AUTO) 8.6 % (20.5-51.5); MEAN CORPUSCULAR HEMOGLOBIN 29 pg (27-31); MEAN CORPUSCULAR HGB CONC 33 % (32-36); MONOCYTES # (AUTO) 0.1 K/uL (0.0-1.0); MONOCYTES % (AUTO) 3.3 % (1.7-9.3); NEUTROPHILS # (AUTO) 3.6 K/uL (1.8-7.7); NEUTROPHILS % (AUTO) 87.8 % (40.0-70.0); PLATELET COUNT (AUTO) 189 K/uL (130-430); RED CELL DISTRIBUTION WIDTH 19.2 % (9.0-15.0); WHITE BLOOD COUNT (AUTO) 4.2 K/uL (4.8-10.8)
[2023-08-14 06:29] LABS: ALBUMIN 1.9 g/dL (3.4-4.8); CREATININE 6.6 mg/dL (0.55-1.30); PHOSPHORUS 6.3 mg/dL (2.7-4.5); POTASSIUM 4.5 mmol/L (3.5-5.1); TOTAL BILIRUBIN 0.4 mg/dL (0.0-1.0)
[2023-08-14 06:53] LABS: CALCIUM 6.9 mg/dL (8.4-11.0)
[2023-08-14 07:51] LABS: MEAN CORPUSCULAR VOLUME 88 fL (79.0-98.0)
[2023-08-14] MEDS: FOLIC ACID 1 MG TABLET PO SCH (09:11)
[2023-08-14] MEDS: FERROUS SULFATE 325 MG TABLET.DR PO SCH (09:11)
[2023-08-14] MEDS: calcitrioL 0.25 MCG CAPSULE PO SCH (09:12)
[2023-08-14 11:32] VITALS: BP_SYST 137; PULSE 75; RESP 18; TEMP 98.2; O2SAT 99
[2023-08-14 16:30] VITALS: BP_SYST 131; PULSE 79; RESP 18; TEMP 98.6; O2SAT 98
[2023-08-14 20:00] VITALS: BP_SYST 146; PULSE 71; RESP 18; TEMP 98.3; O2SAT 94
[2023-08-14] MEDS ORDERED: NALOXONE HCL 0.4 MG/ML AMP (NARCAN) IVP PRN (20:45)
[2023-08-14] MEDS: HYDROcodone/ACETAMIN 5-325 MG TAB (NORCO/ VICODIN) PO PRN (21:31)
[2023-08-14] MEDS: DIPHENHYDRAMINE HCL 12.5 MG/5 ML UDC PO PRN (22:41)
[2023-08-15] VITALS (7 sets, daily range): BP systolic 140–168; PULSE 57–75; RESP 15–18; TEMP 96.8–98.2; O2SAT 95–100
[2023-08-15 10:11] LABS: POTASSIUM 5.3 mmol/L (3.5-5.1)
[2023-08-15 10:35] LABS: CALCIUM 5.9 mg/dL (8.4-11.0); CREATININE 8.02 mg/dL (0.55-1.30)
[2023-08-15] MEDS: INSULIN REGULAR, HUMAN 100 UNITS/ML, 3 ML VIAL SUBCUT ONE (10:48)
[2023-08-15] MEDS: INSULIN REGULAR, HUMAN 100 UNITS/ML, 3 ML VIAL (humuLIN R) SUBCUT PRN (16:45)
[2023-08-15 16:55] LABS: ALBUMIN 2.2 g/dL (3.4-4.8); CREATININE 4.81 mg/dL (0.55-1.30); POTASSIUM 3.9 mmol/L (3.5-5.1); TOTAL BILIRUBIN 0.3 mg/dL (0.0-1.0); TOTAL PROTEIN, SERUM 6.8 g/dL (6.4-8.3)
[2023-08-15] MEDS: INSULIN REGULAR, HUMAN 10 UNITS/0.1 ML, 3 ML VIAL SUBCUT ONE (16:55)
[2023-08-15] MEDS ORDERED: NALOXONE HCL 0.4 MG/ML AMP (NARCAN) IVP PRN (22:15)
[2023-08-15] MEDS: DIPHENHYDRAMINE INJ 50 MG/ML VIAL IVP ONE (22:45)
[2023-08-16 00:12] VITALS: BP_SYST 151; PULSE 65; RESP 16; TEMP 96.6; O2SAT 99
[2023-08-16] MEDS: HYDROcodone/ACETAMIN 10-325 MG TAB PO PRN (00:28)
[2023-08-16 05:37] LABS: BASOPHILS % (AUTO) 0.3 % (0.0-2.0); EOSINOPHILS % (AUTO) 0.1 % (0.0-4.0); HEMATOCRIT 30.1 % (36-54); HEMOGLOBIN 9.8 g/dL (14.0-18.0); LYMPHOCYTES % (AUTO) 12.1 % (20.5-51.5); MEAN CORPUSCULAR HEMOGLOBIN 29 pg (27-31); MEAN CORPUSCULAR HGB CONC 33 % (32-36); MEAN CORPUSCULAR VOLUME 89 fL (79.0-98.0); MONOCYTES # (AUTO) 0.7 K/uL (0.0-1.0); MONOCYTES % (AUTO) 8.6 % (1.7-9.3); NEUTROPHILS # (AUTO) 6.2 K/uL (1.8-7.7); NEUTROPHILS % (AUTO) 78.9 % (40.0-70.0); PLATELET COUNT (AUTO) 184 K/uL (130-430); RED BLOOD CELL COUNT(AUTO) 3.39 MIL/uL (4.2-6.2); RED CELL DISTRIBUTION WIDTH 19.4 % (9.0-15.0)
[2023-08-16 06:17] LABS: CREATININE 6.47 mg/dL (0.55-1.30); POTASSIUM 4.5 mmol/L (3.5-5.1)
[2023-08-16 07:07] LABS: CALCIUM 6.6 mg/dL (8.4-11.0)
[2023-08-16 07:55] VITALS: O2SAT 99
[2023-08-16 08:16] LABS: WHITE BLOOD COUNT (AUTO) 7.9 K/uL (4.8-10.8)
[2023-08-16 08:17] VITALS: BP_SYST 150; PULSE 68; RESP 22; TEMP 97.6; O2SAT 99
[2023-08-16] MEDS: CALCIUM GLUC 1 GM/100ML-NACL 100 ML IV ONE (11:34)
[2023-08-16 12:00] VITALS: BP_SYST 128; PULSE 77; RESP 18; TEMP 98.2; O2SAT 98
[2023-08-16 19:48] VITALS: BP_SYST 152; PULSE 68; RESP 20; TEMP 97.8; O2SAT 99
[2023-08-16 20:18] VITALS: BP_SYST 150; PULSE 70; RESP 20; TEMP 98.2
[2023-08-17 00:07] VITALS: BP_SYST 153; PULSE 73; RESP 18; TEMP 97.5; O2SAT 100
[2023-08-17 07:52] VITALS: BP_SYST 167; PULSE 78; RESP 17; TEMP 97.8; O2SAT 100
[2023-08-17 08:07] VITALS: O2SAT 100
[2023-08-17] MEDS: calcitrioL 0.25 MCG CAPSULE PO SCH (08:54)
[2023-08-17 11:30] VITALS: BP_SYST 148; PULSE 72; RESP 17; TEMP 98.1; O2SAT 94
[2023-08-17 12:51] LABS: INR 1.2 (0.80-1.20); PROTHROMBIN TIME 11.9 SECS (9.5-12.5)
[2023-08-17] MEDS: ONDANSETRON HCL 4 MG/2 ML VIAL IVP PRN (12:58)
[2023-08-17] MEDS: AZITHROMYCIN 250 MG TABLET PO ONE (17:20)
[2023-08-17 17:38] VITALS: BP_SYST 150; PULSE 77; RESP 18; TEMP 98.6; O2SAT 95
[2023-08-17 20:00] VITALS: BP_SYST 142; PULSE 78; RESP 18; TEMP 98; O2SAT 96
[2023-08-18 00:32] VITALS: BP_SYST 133; PULSE 81; RESP 20; TEMP 97.9; O2SAT 95
[2023-08-18 02:00] VITALS: O2SAT 96
[2023-08-18 03:25] VITALS: BP_SYST 142; PULSE 78; RESP 18; TEMP 98.1; O2SAT 96
[2023-08-18 06:02] LABS: BASOPHILS % (AUTO) 0.4 % (0.0-2.0); EOSINOPHILS # (AUTO) 0.1 K/uL (0.0-0.4); HEMATOCRIT 32.6 % (36-54); HEMOGLOBIN 10.5 g/dL (14.0-18.0); LYMPHOCYTES # (AUTO) 0.9 K/uL (1.0-5.5); LYMPHOCYTES % (AUTO) 16.5 % (20.5-51.5); MEAN CORPUSCULAR HEMOGLOBIN 29 pg (27-31); MEAN CORPUSCULAR HGB CONC 32 % (32-36); MEAN CORPUSCULAR VOLUME 90 fL (79.0-98.0); MONOCYTES # (AUTO) 0.7 K/uL (0.0-1.0); MONOCYTES % (AUTO) 11.8 % (1.7-9.3); NEUTROPHILS # (AUTO) 3.9 K/uL (1.8-7.7); NEUTROPHILS % (AUTO) 69.3 % (40.0-70.0); PLATELET COUNT (AUTO) 189 K/uL (130-430); RED BLOOD CELL COUNT(AUTO) 3.61 MIL/uL (4.2-6.2); RED CELL DISTRIBUTION WIDTH 19.2 % (9.0-15.0); WHITE BLOOD COUNT (AUTO) 5.7 K/uL (4.8-10.8)
[2023-08-18 06:17] LABS: CREATININE 7.14 mg/dL (0.55-1.30); POTASSIUM 4.1 mmol/L (3.5-5.1)
[2023-08-18 06:25] LABS: INR 1.2 (0.80-1.20); PROTHROMBIN TIME 12.1 SECS (9.5-12.5)
[2023-08-18 07:11] LABS: CALCIUM 6.8 mg/dL (8.4-11.0)
[2023-08-18 08:30] VITALS: BP_SYST 148; PULSE 85; RESP 18; TEMP 97; O2SAT 100
[2023-08-18] MEDS: AZITHROMYCIN 250 MG TABLET PO SCH (10:49)
[2023-08-18 11:46] VITALS: BP_SYST 148; PULSE 85; RESP 18; TEMP 97; O2SAT 100
[2023-08-18 12:01] VITALS: BP_SYST 139; PULSE 79; RESP 18; TEMP 97.1; O2SAT 99
== END 2023-08-18 13:17 | disposition home or self-care (01) | DRG 425 ==
LOC: SED 20:37 → STU 23:43 → SMU 08-17 04:51
PROVIDERS: ADMIT Internal Medicine; ATTEND Internal Medicine
PROC: 5A1D70Z Performance of Urinary Filtration, Intermittent, Less than 6 Hours Per Day (ICD-10-PCS; 2023-08-13)
PROC: 5A1D70Z Performance of Urinary Filtration, Intermittent, Less than 6 Hours Per Day (ICD-10-PCS; 2023-08-15)
PROC: 5A1D70Z Performance of Urinary Filtration, Intermittent, Less than 6 Hours Per Day (ICD-10-PCS; 2023-08-17)
PROC: 0W9G3ZZ Drainage of Peritoneal Cavity, Percutaneous Approach (ICD-10-PCS; principal; 2023-08-18)
DX: E87.70 Fluid overload, unspecified (principal); J12.82 Pneumonia due to coronavirus disease 2019; E43 Unspecified severe protein-calorie malnutrition; U07.1 COVID-19; D63.1 Anemia in chronic kidney disease; E87.5 Hyperkalemia; E87.1 Hypo-osmolality and hyponatremia; E83.51 Hypocalcemia; I13.2 Hypertensive heart and chronic kidney disease with heart failure and with stage 5 chronic kidney disease, or end stage renal disease; N18.6 End stage renal disease; E78.5 Hyperlipidemia, unspecified; E11.42 Type 2 diabetes mellitus with diabetic polyneuropathy; I70.0 Atherosclerosis of aorta; I42.9 Cardiomyopathy, unspecified; K74.60 Unspecified cirrhosis of liver; R00.1 Bradycardia, unspecified; E11.51 Type 2 diabetes mellitus with diabetic peripheral angiopathy without gangrene; F15.10 Other stimulant abuse, uncomplicated; I50.9 Heart failure, unspecified; E11.22 Type 2 diabetes mellitus with diabetic chronic kidney disease; J44.0 Chronic obstructive pulmonary disease with (acute) lower respiratory infection; K21.9 Gastro-esophageal reflux disease without esophagitis; Z78.9 Other specified health status; Z91.158 Patient's noncompliance with renal dialysis for other reason; Z91.199 Patient's noncompliance with other medical treatment and regimen due to unspecified reason; Z99.2 Dependence on renal dialysis; Z68.27 Body mass index [BMI] 27.0-27.9, adult
CPT/HCPCS: 36415; 49083; 70450-TC; 71045; 73590; 76376; 76705; 80048; 80053; 80061; 80076; 82948; 83605; 83880; 84100; 84484; 85025; 85610; 85730; 87081; 90935; 90937; 93005; 96374; 99285; G0378; J0696; J1100; J1200; J1815; J2060; J2405; J7060; Q0144

== ENCOUNTER 2023-11-20 12:45 | Inpatient (IN) | payer MEDICAID ==
[~2023-11-20] VITALS: Ht 170.2 cm; Wt 78.5 kg
[~2023-11-20 12:45] MED LIST changes: -HYDR-4038 PO; +HYDR25TA86 PO; -MIRT-147 PO; -PRO40 PO
[2023-11-20 13:06] VITALS: BP_SYST 136; PULSE 46; RESP 14; TEMP 96.1; O2SAT 92
[2023-11-20] MEDS: CALCIUM GLUC 1 GM/100ML-NACL 100 ML IV ONE (13:10)
[2023-11-20 13:20] LABS: BASOPHILS # (AUTO) 0.1 K/uL (0.0-0.2); EOSINOPHILS # (AUTO) 0.1 K/uL (0.0-0.4); EOSINOPHILS % (AUTO) 0.9 % (0.0-4.0); LYMPHOCYTES # (AUTO) 0.9 K/uL (1.0-5.5); LYMPHOCYTES % (AUTO) 17.1 % (20.5-51.5); MEAN CORPUSCULAR HEMOGLOBIN 30 pg (27-31); MEAN CORPUSCULAR HGB CONC 32 % (32-36); MEAN CORPUSCULAR VOLUME 91 fL (79.0-98.0); MONOCYTES # (AUTO) 0.4 K/uL (0.0-1.0); NEUTROPHILS # (AUTO) 4.1 K/uL (1.8-7.7); PLATELET COUNT (AUTO) 240 K/uL (130-430); RED BLOOD CELL COUNT(AUTO) 2.28 MIL/uL (4.2-6.2); RED CELL DISTRIBUTION WIDTH 19.6 % (9.0-15.0); WHITE BLOOD COUNT (AUTO) 5.5 K/uL (4.8-10.8)
[2023-11-20 13:22] LABS: ABG O2 SAT% ESTIMATE 98.4 % (94.0-100.0); BLOOD GAS BASE EXCESS -4.7 mmol/L (-3.0-3.0); BLOOD GAS HCO3 20.5 mmol/L (21.0-27.0); BLOOD GAS PCO2 38.3 mmHg (32.0-45.0); BLOOD GAS PH 7.346 (7.350-7.450); BLOOD GAS PO2 128.7 mmHg (75.0-100.0)
[2023-11-20 13:28] LABS: HEMATOCRIT 20.8 % (36-54); HEMOGLOBIN 6.7 g/dL (14.0-18.0)
[2023-11-20 13:46] LABS: ALBUMIN 2.1 g/dL (3.4-4.8); BILIRUBIN,DIRECT 0.2 mg/dL (0.0-0.3); CALCIUM 7.1 mg/dL (8.4-11.0); PHOSPHORUS 7.7 mg/dL (2.7-4.5); TOTAL BILIRUBIN 0.4 mg/dL (0.0-1.0); TOTAL PROTEIN, SERUM 6.5 g/dL (6.4-8.3)
[2023-11-20 13:49] LABS: POTASSIUM 7.4 mmol/L (3.5-5.1)
[2023-11-20 13:50] LABS: CREATININE 12.53 mg/dL (0.55-1.30)
[2023-11-20 14:02] LABS: ALCOHOL, BLOOD < 3 mg/dL (<10)
[2023-11-20] MEDS: INSULIN REGULAR, HUMAN 10 UNITS/0.1 ML, 3 ML VIAL IVP ONE (14:04)
[2023-11-20] MEDS: DEXTROSE 50% JECT 50 ML DISP.SYRIN IVP ONE (14:14)
[2023-11-20] MEDS ORDERED: ONDANSETRON HCL 4 MG/2 ML VIAL IVP PRN (14:30)
[2023-11-20] MEDS ORDERED: POTASSIUM CHLORIDE 20 MEQ TABLET.ER PO PRN (14:30)
[2023-11-20] MEDS ORDERED: ACETAMINOPHEN 500 MG TABLET PO PRN (14:30)
[2023-11-20] MEDS ORDERED: MUPIROCIN 2% TOPICAL OINTMENT 22 GM NS PRN (14:30)
[2023-11-20] MEDS ORDERED: MAGNESIUM SULFATE 50 ML IV PRN (14:30)
[2023-11-20] MEDS ORDERED: DOCUSATE SODIUM 100 MG CAPSULE PO PRN (14:30)
[2023-11-20] MEDS ORDERED: ZOLPIDEM TARTRATE 5 MG TABLET PO PRN (14:30)
[2023-11-20] MEDS: SODIUM BICARBONATE 8.4% JECT 50 MEQ/50 ML SYRINGE IVP ONE (14:45)
[2023-11-20] MEDS: ONDANSETRON HCL 4 MG/2 ML VIAL IVP ONE (14:46)
[2023-11-20] MEDS: SODIUM POLYSTYRENE SULFONATE 15 GM/60 ML UDBTL PO ONE (14:46)
[2023-11-20 20:38] LABS: CALCIUM 7.3 mg/dL (8.4-11.0); POTASSIUM 5.5 mmol/L (3.5-5.1)
[2023-11-20] MEDS: SEVELAMER CARBONATE 800 MG TABLET PO ONE (20:38)
[2023-11-20 20:47] LABS: CREATININE 9.75 mg/dL (0.55-1.30)
[2023-11-20 21:09] LABS: BARBITURATE, URINE NEGATIVE (NEG <=200); METHAMPHETAMINES SCREEN,URINE POSITIVE (NEG <=500); OPIATE, URINE POSITIVE (NEG <=100); URINE AMPHETAMINE NEGATIVE (NEG <=500)
[2023-11-20 21:10] LABS: BENZODIAZEPINE, URINE NEGATIVE (NEG <=150); CANNABINOID, URINE NEGATIVE (NEG <=50); COCAINE, URINE NEGATIVE (NEG <=150); PHENCYCLIDINE SCREEN,URINE NEGATIVE (NEG <=25); UR TRICYCLIC ANTIDEPRESSANTS NEGATIVE (NEG <=300); URINE METHADONE NEGATIVE (NEG <=200); URINE OXYCODONE SCREEN NEGATIVE (NEG <=100)
[2023-11-20 21:50] VITALS: BP_SYST 170; PULSE 83; RESP 24; TEMP 98.3
[2023-11-20] MEDS: HEPARIN SODIUM,PORCINE 5,000 UNITS/ML VIAL SUBCUT SCH (22:01)
[2023-11-20] MEDS: LORazepam 2 MG/ML VIAL IVP PRN (22:02)
[2023-11-21] VITALS (14 sets, daily range): BP systolic 121–155; PULSE 78–101; RESP 18–22; TEMP 98–98.5; O2SAT 95–99
[2023-11-21 06:13] LABS: BASOPHILS # (AUTO) 0.1 K/uL (0.0-0.2); BASOPHILS % (AUTO) 1.3 % (0.0-2.0); EOSINOPHILS # (AUTO) 0.2 K/uL (0.0-0.4); EOSINOPHILS % (AUTO) 3.4 % (0.0-4.0); HEMATOCRIT 25.5 % (36-54); HEMOGLOBIN 8.5 g/dL (14.0-18.0); LYMPHOCYTES % (AUTO) 18.1 % (20.5-51.5); MEAN CORPUSCULAR HEMOGLOBIN 30 pg (27-31); MEAN CORPUSCULAR HGB CONC 34 % (32-36); MONOCYTES # (AUTO) 0.5 K/uL (0.0-1.0); MONOCYTES % (AUTO) 8.3 % (1.7-9.3); NEUTROPHILS # (AUTO) 3.9 K/uL (1.8-7.7); NEUTROPHILS % (AUTO) 68.9 % (40.0-70.0); PLATELET COUNT (AUTO) 219 K/uL (130-430); RED BLOOD CELL COUNT(AUTO) 2.89 MIL/uL (4.2-6.2); RED CELL DISTRIBUTION WIDTH 19.1 % (9.0-15.0); WHITE BLOOD COUNT (AUTO) 5.7 K/uL (4.8-10.8)
[2023-11-21 07:34] LABS: CALCIUM 6.8 mg/dL (8.4-11.0); CREATININE 10.12 mg/dL (0.55-1.30)
[2023-11-21] MEDS: SEVELAMER CARBONATE 800 MG TABLET PO SCH (08:09)
[2023-11-21] MEDS ORDERED: DEXTROSE 50% JECT 50 ML DISP.SYRIN IVP PRN (08:30)
[2023-11-21] MEDS ORDERED: INSULIN LISPRO SLIDING SCALE 100 UNITS/ML, 3 ML VIAL (humaLOG) SUBCUT PRN (08:30)
[2023-11-21] MEDS: GABAPENTIN 100 MG CAPSULE PO SCH (08:53)
[2023-11-21] MEDS: MORPHINE 2 MG/ML INJ. SYRINGE IVP PRN ×2 (08:58→08:59)
[2023-11-21 08:59] LABS: MEAN CORPUSCULAR VOLUME 88 fL (79.0-98.0)
[2023-11-21] MEDS: EPOETIN ALFA-EPBX 10,000 UNITS/ML VIAL SUBCUT ONE (20:39)
[2023-11-22] VITALS (7 sets, daily range): BP systolic 123–141; PULSE 87–101; RESP 17–20; TEMP 98–98.9; O2SAT 94–97
[2023-11-22 05:35] LABS: BASOPHILS # (AUTO) 0.1 K/uL (0.0-0.2); BASOPHILS % (AUTO) 0.6 % (0.0-2.0); EOSINOPHILS # (AUTO) 0.2 K/uL (0.0-0.4); HEMOGLOBIN 7.3 g/dL (14.0-18.0); LYMPHOCYTES # (AUTO) 1.2 K/uL (1.0-5.5); LYMPHOCYTES % (AUTO) 13.8 % (20.5-51.5); MEAN CORPUSCULAR HEMOGLOBIN 30 pg (27-31); MEAN CORPUSCULAR HGB CONC 34 % (32-36); MEAN CORPUSCULAR VOLUME 88 fL (79.0-98.0); MONOCYTES # (AUTO) 0.7 K/uL (0.0-1.0); MONOCYTES % (AUTO) 7.8 % (1.7-9.3); NEUTROPHILS # (AUTO) 6.6 K/uL (1.8-7.7); NEUTROPHILS % (AUTO) 75.8 % (40.0-70.0); PLATELET COUNT (AUTO) 201 K/uL (130-430); RED BLOOD CELL COUNT(AUTO) 2.47 MIL/uL (4.2-6.2); RED CELL DISTRIBUTION WIDTH 18.9 % (9.0-15.0); WHITE BLOOD COUNT (AUTO) 8.8 K/uL (4.8-10.8)
[2023-11-22 05:46] LABS: HEMATOCRIT 21.8 % (36-54)
[2023-11-22 06:03] LABS: POTASSIUM 4.8 mmol/L (3.5-5.1)
[2023-11-22 06:06] LABS: CALCIUM 6.6 mg/dL (8.4-11.0); CREATININE 8.11 mg/dL (0.55-1.30)
[2023-11-23] MEDS ORDERED: EPOETIN ALFA-EPBX 10,000 UNITS/ML VIAL SUBCUT SCH (17:00)
== END 2023-11-22 16:55 | disposition home or self-care (01) | DRG 253 ==
LOC: SED 12:45 → SIC 14:12 → UNDOADMIN 14:12 → SIC 21:30
PROVIDERS: ADMIT General Practice; ATTEND General Practice
PROC: 30233N1 Transfusion of Nonautologous Red Blood Cells into Peripheral Vein, Percutaneous Approach (ICD-10-PCS; principal; 2023-11-20)
PROC: 5A1D70Z Performance of Urinary Filtration, Intermittent, Less than 6 Hours Per Day (ICD-10-PCS; 2023-11-20)
PROC: 5A1D70Z Performance of Urinary Filtration, Intermittent, Less than 6 Hours Per Day (ICD-10-PCS; 2023-11-21)
DX: K92.2 Gastrointestinal hemorrhage, unspecified (principal); N17.0 Acute kidney failure with tubular necrosis; I21.A1 Myocardial infarction type 2; I50.23 Acute on chronic systolic (congestive) heart failure; E44.0 Moderate protein-calorie malnutrition; E83.51 Hypocalcemia; K70.31 Alcoholic cirrhosis of liver with ascites; D62 Acute posthemorrhagic anemia; E11.22 Type 2 diabetes mellitus with diabetic chronic kidney disease; I13.2 Hypertensive heart and chronic kidney disease with heart failure and with stage 5 chronic kidney disease, or end stage renal disease; E87.5 Hyperkalemia; N18.6 End stage renal disease; E11.51 Type 2 diabetes mellitus with diabetic peripheral angiopathy without gangrene; E11.65 Type 2 diabetes mellitus with hyperglycemia; E78.5 Hyperlipidemia, unspecified; I25.10 Atherosclerotic heart disease of native coronary artery without angina pectoris; I25.5 Ischemic cardiomyopathy; Z91.148 Patient's other noncompliance with medication regimen for other reason; Z91.158 Patient's noncompliance with renal dialysis for other reason; Z91.199 Patient's noncompliance with other medical treatment and regimen due to unspecified reason; Z95.5 Presence of coronary angioplasty implant and graft; Z99.2 Dependence on renal dialysis; Z68.27 Body mass index [BMI] 27.0-27.9, adult
CPT/HCPCS: 36415; 36600; 80048; 80076; 80307; 82803; 82948; 83037; 83690; 83735; 83880; 84100; 84484; 85025; 86886; 86900; 86901; 86920; 90935; 90937; 93005; 94760; 99291; G0482; J1644; J1815; J2060; J2270; J2405; P9021; Q5106

== ENCOUNTER 2023-11-24 18:26 | Inpatient (IN) | payer MEDICAID ==
[~2023-11-24] VITALS: Ht 165.1 cm; Wt 77.3 kg
[~2023-11-24 18:26] MED LIST changes: -CLOP75TA32 PO
[2023-11-24 19:25] VITALS: BP_SYST 158; PULSE 90; RESP 16; TEMP 98.5; O2SAT 99
[2023-11-24 19:33] LABS: BASOPHILS # (AUTO) 0.1 K/uL (0.0-0.2); BASOPHILS % (AUTO) 1.1 % (0.0-2.0); EOSINOPHILS # (AUTO) 0.1 K/uL (0.0-0.4); EOSINOPHILS % (AUTO) 1.8 % (0.0-4.0); HEMATOCRIT 27.2 % (36-54); HEMOGLOBIN 8.8 g/dL (14.0-18.0); LYMPHOCYTES # (AUTO) 0.9 K/uL (1.0-5.5); LYMPHOCYTES % (AUTO) 13.5 % (20.5-51.5); MEAN CORPUSCULAR HEMOGLOBIN 29 pg (27-31); MEAN CORPUSCULAR HGB CONC 32 % (32-36); MEAN CORPUSCULAR VOLUME 90 fL (79.0-98.0); MONOCYTES # (AUTO) 0.5 K/uL (0.0-1.0); MONOCYTES % (AUTO) 7.1 % (1.7-9.3); NEUTROPHILS # (AUTO) 5.2 K/uL (1.8-7.7); NEUTROPHILS % (AUTO) 76.5 % (40.0-70.0); PLATELET COUNT (AUTO) 184 K/uL (130-430); RED BLOOD CELL COUNT(AUTO) 3.02 MIL/uL (4.2-6.2); RED CELL DISTRIBUTION WIDTH 19.7 % (9.0-15.0); WHITE BLOOD COUNT (AUTO) 6.8 K/uL (4.8-10.8)
[2023-11-24 19:34] LABS: INR 1.5 (0.80-1.20); PROTHROMBIN TIME 15.7 SECS (9.5-12.5)
[2023-11-24 19:36] LABS: ALBUMIN 2.5 g/dL (3.4-4.8); BILIRUBIN,DIRECT 0.3 mg/dL (0.0-0.3); TOTAL BILIRUBIN 0.5 mg/dL (0.0-1.0); TOTAL PROTEIN, SERUM 7.5 g/dL (6.4-8.3)
[2023-11-24 19:46] LABS: CREATININE 11.89 mg/dL (0.55-1.30); POTASSIUM 7.2 mmol/L (3.5-5.1)
[2023-11-24] MEDS: CALCIUM GLUC 1 GM/100ML-NACL 100 ML IV ONE (20:10)
[2023-11-24] MEDS ORDERED: PANTOPRAZOLE SODIUM 40 MG/VIAL (PROTONIX) ONE (20:50)
[2023-11-24] MEDS: PANTOPRAZOLE SODIUM 40 MG/VIAL (PROTONIX) IVP ONE (21:40)
[2023-11-24] MEDS ORDERED: NITROGLYCERIN 0.4 MG TAB.SUBL SL PRN (22:45)
[2023-11-24] MEDS ORDERED: MECLIZINE HCL 25 MG TABLET (ANITVERT) PO SCH (22:45)
[2023-11-24] MEDS ORDERED: hydrALAZINE HCL 20 MG/ML VIAL IVP PRN (23:00)
[2023-11-25 04:47] LABS: BASOPHILS % (AUTO) 0.8 % (0.0-2.0); EOSINOPHILS # (AUTO) 0.1 K/uL (0.0-0.4); EOSINOPHILS % (AUTO) 2.4 % (0.0-4.0); HEMOGLOBIN 7.3 g/dL (14.0-18.0); LYMPHOCYTES % (AUTO) 17.6 % (20.5-51.5); MEAN CORPUSCULAR HEMOGLOBIN 29 pg (27-31); MEAN CORPUSCULAR HGB CONC 33 % (32-36); MEAN CORPUSCULAR VOLUME 88 fL (79.0-98.0); MONOCYTES # (AUTO) 0.6 K/uL (0.0-1.0); NEUTROPHILS # (AUTO) 4.1 K/uL (1.8-7.7); NEUTROPHILS % (AUTO) 69.2 % (40.0-70.0); PLATELET COUNT (AUTO) 207 K/uL (130-430); RED CELL DISTRIBUTION WIDTH 18.7 % (9.0-15.0); WHITE BLOOD COUNT (AUTO) 5.9 K/uL (4.8-10.8)
[2023-11-25 05:08] LABS: ALBUMIN 2.2 g/dL (3.4-4.8); CALCIUM 7.1 mg/dL (8.4-11.0); PHOSPHORUS 5.1 mg/dL (2.7-4.5); POTASSIUM 5.3 mmol/L (3.5-5.1); TOTAL BILIRUBIN 0.5 mg/dL (0.0-1.0); TOTAL PROTEIN, SERUM 6.6 g/dL (6.4-8.3)
[2023-11-25 05:14] LABS: CREATININE 8.3 mg/dL (0.55-1.30)
[2023-11-25 07:29] LABS: BASOPHILS # (AUTO) 0.1 K/uL (0.0-0.2); BASOPHILS % (AUTO) 1.3 % (0.0-2.0); EOSINOPHILS # (AUTO) 0.2 K/uL (0.0-0.4); EOSINOPHILS % (AUTO) 2.5 % (0.0-4.0); HEMATOCRIT 24.4 % (36-54); LYMPHOCYTES # (AUTO) 0.9 K/uL (1.0-5.5); LYMPHOCYTES % (AUTO) 14.6 % (20.5-51.5); MEAN CORPUSCULAR HEMOGLOBIN 29 pg (27-31); MEAN CORPUSCULAR HGB CONC 33 % (32-36); MEAN CORPUSCULAR VOLUME 90 fL (79.0-98.0); MONOCYTES # (AUTO) 0.5 K/uL (0.0-1.0); MONOCYTES % (AUTO) 8.1 % (1.7-9.3); NEUTROPHILS # (AUTO) 4.7 K/uL (1.8-7.7); NEUTROPHILS % (AUTO) 73.5 % (40.0-70.0); PLATELET COUNT (AUTO) 239 K/uL (130-430); RED BLOOD CELL COUNT(AUTO) 2.73 MIL/uL (4.2-6.2); RED CELL DISTRIBUTION WIDTH 18.9 % (9.0-15.0); WHITE BLOOD COUNT (AUTO) 6.4 K/uL (4.8-10.8)
[2023-11-25] MEDS: CALCIUM ACETATE 667 MG CAP PO SCH (09:54)
[2023-11-25] MEDS: hydrALAZINE HCL 25 MG TABLET PO SCH (09:55)
[2023-11-25] MEDS: CARVEDILOL 12.5 MG TABLET (COREG) PO SCH (09:56)
[2023-11-25] MEDS: PANTOPRAZOLE SODIUM 40 MG TAB PO SCH (09:56)
[2023-11-25] MEDS: ISOSORBIDE DINITRATE 20 MG TABLET (ISORDIL) PO SCH (09:57)
[2023-11-25] MEDS ORDERED: LORazepam 2 MG/ML VIAL ONE (11:53)
[2023-11-25] MEDS: LORazepam 2 MG/ML VIAL IVP PRN (12:37)
[2023-11-25] MEDS: PREGABALIN 25 MG CAPSULE (LYRICA) PO SCH (12:59)
[2023-11-25 17:51] VITALS: BP_SYST 145
[2023-11-25 18:02] VITALS: BP_SYST 145; PULSE 71; RESP 16; TEMP 97.1; O2SAT 98
[2023-11-25 20:00] VITALS: O2SAT 99
[2023-11-25 20:15] VITALS: BP_SYST 154; PULSE 81; RESP 18; TEMP 96.6; O2SAT 99
[2023-11-25] MEDS: MIRTAZAPINE 15 MG TABLET PO SCH (23:04)
[2023-11-25] MEDS: roPINIRole HCL 0.25 MG ( REQUIP )TABLET PO SCH (23:05)
[2023-11-25] MEDS: FERROUS SULFATE 325 MG TABLET.DR PO SCH (23:05)
[2023-11-25] MEDS: MORPHINE 2 MG/ML INJ. SYRINGE IVP PRN (23:47)
[2023-11-26 00:33] VITALS: BP_SYST 129; PULSE 75; RESP 16; TEMP 98.1; O2SAT 98
[2023-11-26 06:37] LABS: BASOPHILS % (AUTO) 0.9 % (0.0-2.0); EOSINOPHILS # (AUTO) 0.2 K/uL (0.0-0.4); EOSINOPHILS % (AUTO) 3.7 % (0.0-4.0); HEMATOCRIT 24.8 % (36-54); HEMOGLOBIN 8.1 g/dL (14.0-18.0); LYMPHOCYTES # (AUTO) 0.9 K/uL (1.0-5.5); LYMPHOCYTES % (AUTO) 17.1 % (20.5-51.5); MEAN CORPUSCULAR HEMOGLOBIN 29 pg (27-31); MEAN CORPUSCULAR HGB CONC 33 % (32-36); MEAN CORPUSCULAR VOLUME 89 fL (79.0-98.0); MONOCYTES # (AUTO) 0.5 K/uL (0.0-1.0); MONOCYTES % (AUTO) 9.4 % (1.7-9.3); NEUTROPHILS # (AUTO) 3.5 K/uL (1.8-7.7); NEUTROPHILS % (AUTO) 68.9 % (40.0-70.0); PLATELET COUNT (AUTO) 222 K/uL (130-430); RED BLOOD CELL COUNT(AUTO) 2.77 MIL/uL (4.2-6.2); WHITE BLOOD COUNT (AUTO) 5.1 K/uL (4.8-10.8)
[2023-11-26 06:45] LABS: ALBUMIN 1.9 g/dL (3.4-4.8); CALCIUM 7.9 mg/dL (8.4-11.0); CREATININE 7.27 mg/dL (0.55-1.30); PHOSPHORUS 4.6 mg/dL (2.7-4.5); POTASSIUM 4.3 mmol/L (3.5-5.1); TOTAL BILIRUBIN 0.5 mg/dL (0.0-1.0)
[2023-11-26 08:00] VITALS: BP_SYST 151; PULSE 90; RESP 18; TEMP 97.2; O2SAT 90
[2023-11-26] MEDS: NEPHROVITE, (FOLIC ACID/VITAMIN B COMP W-C 1 TAB) PO SCH (09:36)
[2023-11-26 11:23] VITALS: BP_SYST 137; PULSE 95; RESP 15; TEMP 97.4; O2SAT 98
[2023-11-26 15:23] VITALS: BP_SYST 130; PULSE 77; RESP 20; TEMP 96.3; O2SAT 98
[2023-11-26 20:00] VITALS: BP_SYST 153; PULSE 84; RESP 18; TEMP 97.5; O2SAT 100
[2023-11-27 00:05] VITALS: BP_SYST 135; PULSE 86; RESP 18; TEMP 97.5; O2SAT 94
[2023-11-27 08:00] VITALS: BP_SYST 140; PULSE 91; RESP 15; TEMP 99; O2SAT 96
[2023-11-27 08:20] VITALS: O2SAT 96
[2023-11-27 11:07] VITALS: BP_SYST 153; PULSE 92; RESP 16; TEMP 97.7; O2SAT 93
[2023-11-27 15:09] VITALS: BP_SYST 149; PULSE 71; RESP 16; TEMP 97.7; O2SAT 93
[2023-11-27 16:48] VITALS: BP_SYST 149; PULSE 71; RESP 16; TEMP 97.7; O2SAT 93
[2023-11-27] MEDS: EPOETIN ALFA-EPBX 3,000 UNITS/ML VIAL SUBCUT SCH (17:54)
== END 2023-11-27 18:30 | disposition home or self-care (01) | DRG 194 ==
LOC: SED 18:26 → STU 20:36
PROVIDERS: ADMIT Internal Medicine; ATTEND Internal Medicine
PROC: 5A1D70Z Performance of Urinary Filtration, Intermittent, Less than 6 Hours Per Day (ICD-10-PCS; principal; 2023-11-24)
PROC: 5A1D70Z Performance of Urinary Filtration, Intermittent, Less than 6 Hours Per Day (ICD-10-PCS; 2023-11-24)
PROC: 5A1D70Z Performance of Urinary Filtration, Intermittent, Less than 6 Hours Per Day (ICD-10-PCS; 2023-11-27)
DX: I13.2 Hypertensive heart and chronic kidney disease with heart failure and with stage 5 chronic kidney disease, or end stage renal disease (principal); E43 Unspecified severe protein-calorie malnutrition; N18.6 End stage renal disease; D63.1 Anemia in chronic kidney disease; I24.89 Other forms of acute ischemic heart disease; K52.89 Other specified noninfective gastroenteritis and colitis; I50.31 Acute diastolic (congestive) heart failure; E11.22 Type 2 diabetes mellitus with diabetic chronic kidney disease; K70.30 Alcoholic cirrhosis of liver without ascites; E87.5 Hyperkalemia; E11.40 Type 2 diabetes mellitus with diabetic neuropathy, unspecified; Z91.199 Patient's noncompliance with other medical treatment and regimen due to unspecified reason; Z68.28 Body mass index [BMI] 28.0-28.9, adult; Z99.2 Dependence on renal dialysis; Z91.148 Patient's other noncompliance with medication regimen for other reason
CPT/HCPCS: 36415; 72131; 80048; 80053; 80061; 80076; 82140; 83880; 84100; 84484; 85025; 85610; 85730; 86886; 86900; 86901; 87081; 90935; 90937; 99285; C9113; G0378; J0360; J2060; J2270; Q5106